=== PATIENT | male | born 1950 | race Hispanic/Latino ===

== ENCOUNTER 2016-12-08 06:24 | Day surgery (SDC) | payer MEDICARE ==
[2016-12-03 11:34] VITALS: BMI 23.8
--- NOTE | 2016-12-06 01:33 | HP ---
REASON FOR ADMISSION: Left heart cath, possible angioplasty, abnormal stress test. BRIEF CLINICAL HISTORY: A 66-year-old male with a history significant for 2-vessel CABG in 2008 and OSEI to LAD , SVG to RCA, who had recently PTCA done of SVG to RCA on 12/13/2015. Later on, patient presented with a chest pain in a week. A repeat cardiac catheterization done because of positive troponin, which is the tail end of non-STEMI, found to be patent PTCA site. 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 When compared from the date 11/16/2015, the scan findings are similar, so patient is scheduled for cardiac catheterization, possible angioplasty. PAST MEDICAL HISTORY: Significant for coronary artery disease status post CABG status post 1999 and status post SVG to PTCA and RCA on 06/09/2012 and then most recently, patient had coronary intervention on 12/13/2015 with a PTCA of saphenous graft to the RCA of the ostium and proximal to mid with CAITIE done. At that time, patient's OSEI to LAD was patent, but high grade II stenosis noted in the RCA at ostial and proximal to midportion of the graft. History of CABG. SOCIAL HISTORY: Active tobacco abuse, active alcohol abuse. Most recent cardiac workup as follows: Patient had a cardiac catheterization on 12/18/2015 one week after the coronary intervention with ejection fraction of 55 to 60%, [place] triple vessel disease, normal LV ejection fraction *------*, patent OSEI to LAD, patent saphenous graft to the RCA, patent all 3 stents. KAYLEN 3 brisk flow noted, whereas [place] vessels appeared that dominant right-sided, left main having 30 to 40% stenosis of the mid segment, LAD 100% occlusion in the mid, circumflex 100% stenosis in mid segment and ramus intermedius has diffuse disease, RCA 100% occlusion to the ostium with patent 3 stents in RCA, ostial, proximal and mid. Most recent stress test was abnormal. SOCIAL HISTORY: As mentioned, active tobacco abuse, active alcohol abuse. CURRENT MEDICATION: Patient is taking ramipril 1.25 mg daily, metoprolol tartarate 50 twice a day, Tricor 145 mg daily, Zetia 10 mg daily, clopidogrel 75 mg daily, atorvastatin 40 mg daily, aspirin 81 mg daily, Xanax 0.25 mg daily. ALLERGIES: NO KNOWN DRUG ALLERGIES. REVIEW OF SYSTEMS: As per HPI and negative except for HPI. PHYSICAL EXAMINATION: GENERAL: Height of the patient is 5 feet 6 inches, weight of the patient is 148 pounds. Body Mass Index is 23.9 kg/m2. VITAL SIGNS: Temperature afebrile, heart rate 80, blood pressure 130/80. HEENT: PERRLA, intact. NECK: Supple. No carotid bruit. No thyromegaly. CHEST: Clear to auscultation. HEART: S1 and S2 regular. ABDOMEN: Soft. EXTREMITIES: Clubbing and cyanosis negative. BLOOD WORKUP: Pending. IMPRESSION: A 66-year-old male with a past medical history significant for coronary artery disease, status post CABG 2 vessels, OSEI to LAD, saphenous graft to the RCA. Most recent cardiac catheterization on 12/18/2015 shows patent OSEI to LAD, patent saphenous graft to the RCA, and 3 stents were patent, [place] triple vessel disease, 100% LAD occluded with circumflex occluded, 100% RCA occluded, preserved LV function, hypertension, hyperlipidemia, active tobacco abuse, active alcohol abuse. RECOMMENDATION: Cardiac catheterization. Further recommendation after cardiac catheterization. We will follow with you. Annalisa Mcduffie MD
[2016-12-08 07:20] VITALS: RESP 20
[2016-12-08 07:24] LABS: BASO # 0.04 K/mm3 (0.0-2.0); BASO % 0.6 % (0.0-3.0); EOS # 0.3 (0.0-0.7); EOS % 4.1 % (1.5-5.0); GRAN # 4.48 (1.4-6.5); GRAN % 63.4 % (50.0-68.0); HEMOGLOBIN 14.6 gm/dL (14.0-18.0); LYMPH # 1.6 (1.2-3.4); LYMPH % 22.3 % (22.0-35.0); MEAN CELL VOLUME 88.3 fL (80.0-105.0); MEAN CORPUSCULAR HEMOGLOBIN 30.6 pg (25.0-35.0); MEAN CORPUSCULAR HGB CONC 34.7 g/dl (31.0-37.0); MEAN PLATELET VOLUME 9.9 fl (7.0-11.0); MONO # 0.7 (0.1-0.6); MONO % 9.6 % (1.0-6.0); PLATELET COUNT 156 10^3/uL (120.0-450.0); RBC 4.77 10^6/uL (3.5-6.1); WHITE BLOOD COUNT 7.1 10^3/ul (4.5-11.0)
[2016-12-08] MEDS ORDERED: Lidocaine 2% Inj (20ml) ONE (07:33)
[2016-12-08] MEDS ORDERED: Nitroglycerin 50mg in D5W 50 MG/250 ML BOTTLE IV ONE (07:34)
[2016-12-08 07:36] LABS: INR 0.98 (0.93-1.08); PARTIAL THROMBOPLASTIN TIME 30.5 Seconds (23.7-30.8); PROTHROMBIN TIME 10.6 Seconds (9.9-11.8)
[2016-12-08 07:41] LABS: BLOOD UREA NITROGEN 14 mg/dL (7-21); GFR AFRICAN-AMERICAN > 60; GFR NON-AFRICAN AMERICAN > 60; HDL CHOLESTEROL 44 mg/dL (29-60)
[2016-12-08 07:51] LABS: LDL CHOLESTEROL 72 mg/dL (0-129)
[2016-12-08] MEDS ORDERED: Midazolam 2 MG/2 ML VIAL ONE (07:53)
[2016-12-08] MEDS ORDERED: Bacitracin 500 Units/gm Oint Foilpak UD TOP ONE (08:48)
[2016-12-08] MEDS ORDERED: Sodium Chloride 0.9% 1,000 ML IV SCH (09:00)
[2016-12-08 09:09] VITALS: TEMP 97.6
[2016-12-08] MEDS ORDERED: Bacitracin 500 Units/gm Oint Foilpak UD ONE (10:57)
[2016-12-08 12:08] VITALS: BP 123/71; PULSE 58; O2SAT 98
--- NOTE | 2016-12-08 14:49 | CARD ---
APPROVED REPORT Procedure(s) performed: Left Heart Catheterization OSEI Angiogram Coronary Arteriogram HISTORY The patient is a 66 year-old male with a history of : previous OH (> 7 days), most recent EF: 51%. (EF Method: RADIONUCLIDE), previous diagnostic cath, tobacco history() : The patient is a current smoker , previous PCI (The PCI date was 12/13/2015), hypertension , previous CABG (The CABG date was 05/18/2008), dyslipidemia . INDICATION The indication(s) include : positive stress test. CASE TECHNIQUE The patient was brought electively to the Cardiac Catheterization Laboratory in a fasting state and was prepped and draped in a sterile manner. The left wrist was infiltrated with 2% Lidocaine subcutaneous anesthesia. A 6 Fr Glidesheath (Radial) sheath was inserted into the left radial artery without difficulty. Coronary angiography was performed using coronary diagnostic catheters. The left coronary system was accessed and visualized with a Diagnostic ,5 Fr JL 3.5 catheter. The right coronary system was accessed and visualized with a Diagnostic ,5 Fr JR 4 catheter. The left ventricle was accessed and visualized with a 5 Fr Pigtail 145 (Angled) catheter. The left internal mammary artery was accessed and visualized with a Diagnostic ,5 Fr JR 4 catheter. The saphenous vein graft was accessed and visualized with a Diagnostic ,5FR MP1 catheter. The saphenous vein graft was accessed and visualized with a Diagnostic catheter. Left ventricular/Aortic Valve gradient assessed on pullback. Left ventriculogram was performed in FISHER projection. Closure device was deployed with a Fr TR Band (Regular) without any complications. The patient tolerated the procedure well and there were no complications associated with the procedure. Vessel Analysis The patient's coronary anatomy is right dominant. The left main coronary artery is a large size vessel with diffuse calcification noted throughout this vessel and without significant stenosis. There is a 30-40% stenosis in the mid segment. The left main trifurcates to the left anterior descending, circumflex, and ramus. The left anterior descending artery is a medium size vessel with diffuse calcification noted throughout this vessel and with significant stenosis. There is a 100% stenosis in the mid segment. The first diagonal branch is a small size vessel with diffuse calcification noted throughout this vessel and without significant stenosis. There is a 95% stenosis in the proximal segment. The circumflex artery is a medium size vessel with diffuse calcification noted throughout this vessel and without significant stenosis. There is a 100% stenosis in the mid segment. The ramus intermedius artery is a medium size vessel with diffuse calcification noted throughout this vessel and without significant stenosis. The right coronary artery is a medium size vessel . There is a 100% stenosis in the ostial segment. Not canulated this time ,found to be occluded on previous cath (10/30/2014) The right posterior descending artery is a large size vessel with diffuse calcification noted throughout this vessel and without significant stenosis. The left internal mammary artery to the mid left anterior descending artery segment is patent . The right internal mammary artery to the is patent with patent all three stents, But 40-50% Instent Restenosis noted.. The saphenous vein graft to the right posterior atrioventricular segment . Left Ventricle The left ventricle is Borderline enlarged in size with mildly decreased contractility. Ischemic cardiomyopathy. The left ventricular ejection fraction is estimated to be 45-50%. The left ventricular end diastolic pressure is 14 mmHg. There was no gradient across the aortic valve upon pullback. Conclusion [place] Triple vessel Disease, Occluded LAD/CX in Mid and RCA at [place] Patent OSEI to LAD Patent SVG to Distal RCA with patent all three stents but 40-50% instent Restenosis. Mildly decreased LV FX. 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 CC; DRs. Fischer / Adrienne.
== END 2016-12-08 12:30 | disposition home or self-care (01) ==
LOC: CATH 06:24
PROVIDERS: ATTEND Internal Medicine Cardiovascular Disease
DX: I25.10 Atherosclerotic heart disease of native coronary artery without angina pectoris (principal); I25.5 Ischemic cardiomyopathy; I25.2 Old myocardial infarction; I10 Essential (primary) hypertension; E78.5 Hyperlipidemia, unspecified; F17.210 Nicotine dependence, cigarettes, uncomplicated; F10.10 Alcohol abuse, uncomplicated; Z95.1 Presence of aortocoronary bypass graft; Z95.5 Presence of coronary angioplasty implant and graft
CPT/HCPCS: 36415; 80048; 80061; 85025; 85610; 85730; 86850; 86900; 93459; 99152; C1769; C1887 ×2; J1644 ×2; J2250; J3010; J7040 ×2; Q9967

== ENCOUNTER 2017-02-24 09:55 | Observation (INO) | payer MEDICARE ==
--- NOTE | 2017-02-24 10:34 | ED PDOC ---
Arrival/HPI - General Chief Complaint: Upper Extremity Problem/Injury Time Seen by Provider: 02/24/17 10:14 Historian: Patient - History of Present Illness Narrative History of Present Illness (Text): 02/24/17 10:15 A 66 year old male smoker, whose past medical history includes ID, CAD, cardiac stents, high blood pressure, smoking, and high cholesterol, presents to the emergency department for arm discomfort on exertion, which began approximately 1 1/2 weeks ago. The patient reports when going up the stairs he feels a "squeezing sensation" down his arm, but when he stops so does the pain. He states these are similar symptoms as when he had a previous ID. The patient describes the pain as "tightness" and "burning." Denies pain radiating to the neck or back. Denies chest pain. He admits he is compliant with his medications and is trying to cut back and quit smoking. The patient denies fever, abdominal pain, headaches, denies leg pain or swelling. Time/Duration: 24 hours (1 1/2 weeks), > week Symptom Onset: Gradual Symptom Course: Unchanged Quality: Tightness, Burning Activities at Onset: Light Context: Walking, Home, Street Past Medical History - Provider Review Nursing Documentation Reviewed: Yes - Infectious Disease Hx of Infectious Diseases: None - Tetanus Immunization Tetanus Immunization: Unknown - Cardiac Hx ID: Yes - Pulmonary Hx Respiratory Disorders: No - Neurological Hx Paralysis: No - HEENT Hx HEENT Disorder: Yes (ringing in the ears) Hx Blind: No Hx Cataracts: No Hx Deafness: No Hx Difficulty Chewing: No Hx Epistaxis: No Hx Glaucoma: No Hx Macular Degeneration: No - Renal Hx Renal Disorder: No Hx Dialysis: No Hx Kidney Stones: No Hx Neurogenic Bladder: No Hx Pyelonephritis: No Hx Renal Cancer: No Hx Renal Failure: No - Endocrine/Metabolic Hx Endocrine Disorders: No Hx Adrenal Cancer: No Hx Diabetes Insipidus: No Hx Diabetes Mellitus Type 1: No Hx Diabetes Mellitus Type 2: No Hx Hyperthyroidism: No Hx Hypothyroidism: No Hx Systemic Lupus Erythematosus: No - Hematological/Oncological Hx Blood Transfusions: No Hx Blood Transfusion Reaction: No - Integumentary Hx Dermatological Disorder: No Hx Basal Cell Carcinoma: No Hx Eczema: No Hx Melanoma: No Hx Psoriasis: No Hx Squamous Cell Carcinoma: No - Musculoskeletal/Rheumatological Hx Musculoskeletal Disorders: No - Gastrointestinal Hx Gastrointestinal Disorders: No Hx Colostomy: No Hx Crohn's Disease: No Hx Diverticulitis: No Hx Gall Bladder Disease: No Hx Gastroesophageal Reflux: No Hx Gastrointestinal Ulcer: No Hx Ileostomy: No Hx Liver Failure: No Hx Pancreatitis: No HX Swallowing Problems: No - Genitourinary/Gynecological Hx Genitourinary Disorders: No Hx Hematuria: No Hx Incontinence: No Hx Prostate Problems: No Hx Sexually Transmitted Diseases: No Hx Urinary Tract Infection: No - Psychiatric Hx Emotional Abuse: No Hx Physical Abuse: No Hx Substance Use: No - Surgical History Hx Appendectomy: Yes Hx Coronary Artery Bypass Graft: Yes Hx Coronary Stent: Yes Hx Orthopedic Surgery: Yes (both knee) - Anesthesia Hx Anesthesia Reactions: No Hx Malignant Hyperthermia: No - Suicidal Assessment Feels Threatened In Home Enviroment: No Family/Social History - Physician Review Nursing Documentation Reviewed: Yes Family/Social History: Unknown Family HX Smoking Status: Heavy Smoker > 10 Cigarettes Daily Hx Alcohol Use: Yes Frequency of alcohol use: Socially Hx Substance Use: No Hx Substance Use Treatment: No Allergies/Home Meds Allergies/Adverse Reactions: Allergies No Known Allergies Allergy (Verified 02/24/17 10:02) Home Medications: Home Meds Medication Instructions Recorded Confirmed Aspirin [Ecotrin] 81 mg PO DAILY 12/11/15 02/24/17 Clopidogrel [Plavix] 75 mg PO DAILY 12/11/15 02/24/17 Metoprolol Tartrate 50 mg PO BID 12/11/15 02/24/17 Ramipril [Altace] 1.25 mg PO DAILY 12/11/15 02/24/17 Atorvastatin [Lipitor] 40 mg PO DAILY 07/19/16 02/24/17 Ezetimibe [Zetia] 10 mg PO DAILY 12/03/16 02/24/17 Review of Systems - Review of Systems Constitutional: Fatigue. absent: Fevers Eyes: absent: Vision Changes ENT: absent: Hearing Changes Respiratory: SOB. absent: Cough, Wheezing Cardiovascular: WALTERS. absent: Chest Pain, Edema Gastrointestinal: absent: Abdominal Pain Musculoskeletal: Other (arm discomfort with exertion ) Neurological: absent: Headache, Dizziness, Focal Weakness Endocrine: absent: Polyuria Hemo/Lymphatic: absent: Easy Bleeding Psychiatric: absent: Depression Physical Exam - Physical Exam Narrative Physical Exam (Text): 02/24/17 10:20 Head: Atraumatic. Normocephalic. Eyes: PERRL. EOMI. Conjunctivae are not pale. ENT: Mucous membranes are moist and intact. Oropharynx is clear and symmetric. Neck: Supple. Full ROM. No JVD. No lymphadenopathy. Cardiovascular: Bradycardic. Systolic murmur. Distal pulses symmetric. Pulmonary/Chest: No evidence of respiratory distress. Mild expiratory wheeze no rales or rhochi. Abdominal: Soft and non-distended. There is no tenderness. No rebound, guarding, or rigidity. No organomegaly. Good bowel sounds. Back: No CVA tenderness. Extremities: No edema. No cyanosis. No clubbing. Full range of motion in all extremities. No calf tenderness. Skin: Skin is warm and dry. No petechiae. No purpura. Neurological: Alert, awake, and oriented to person, place, time, and situation. Normal speech. Motor and sensory exam intact. Psychiatric: Good eye contact. Normal interaction, affect, and behavior. Vital Signs Reviewed: Yes Vital Signs Temp Pulse Resp BP Pulse Ox 02/24/17 13:46 52 L 18 134/87 98 02/24/17 12:22 49 L 16 124/67 97 02/24/17 09:57 97.7 F 54 L 18 145/90 98 02/24/17 09:56 97.7 F 54 L 18 145/90 98 Temperature: Afebrile Blood Pressure: Normal Pulse: Bradycardic Respiratory Rate: Normal Appearance: Positive for: Well-Appearing, Non-Toxic, Comfortable Pain Distress: None Mental Status: Positive for: Alert and Oriented X 3 Medical Decision Making ED Course and Treatment: 02/24/17 10:20 Impression: A 66 year old male with arm discomfort. Differential Diagnosis included but are not limited to: ID vs. CAD Plan: -- EKG -- Chest X-ray -- Labs -- Reassess and disposition Progress Notes: Patient with significant past cardiac hx including prior stents. I did review cardiac cath from earlier this year: 02/24/17 10:35 Reviewed Cardiac Catheterization from earlier this year: Conclusion: [place] Triple Vessel Disease, Occluded LAD/CX in Mid and RCA at [place]. Patient OSEI to LAD Patient SVG to Distal RCA with patent all three stents, but 40-50% instent restenosis. Mildly decreased LV FX. EF-45-50%, EDP-14. Patient admits he continues to smoke, although reportedly recently compliant with medication. He took his aspirin and beta emory prior to arrival. He is currently pain free at rest. Symptoms over one week. Initial troponin unremarkable. CXR with pulmonary vascular congestion. He is not in respiratory distress and continues to deny chest pain. Based on persistent noncompliance with smoking, hx of stents, and arm pain with exertion that currently does not appear musculoskeletal as not worse with movement or palpation, will admit to telemetry observation. 02/24/17 13:39 Patient's presents to the emergency department, the patient is now willing to be admitted to the hospital. Case was discussed with the patient's primary doctor, Dr. Burgess, who agrees and will accept this case. 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 Mcduffie, and patient admitted to Dr. Burgess's service, his PMD. - Lab Interpretations Lab Results: 02/24/17 10:30 02/24/17 10:30 Lab Results 02/24/17 11:52: NT-Pro-B Natriuret Pep 138 02/24/17 10:30: Sodium 142, Potassium 4.2, Chloride 105, Carbon Dioxide 28, Anion Gap 13, BUN 12, Creatinine 0.7 L, Est GFR ( Amer) > 60, Est GFR ( Non-Af Amer) > 60, Random Glucose 100, Calcium 9.5, Total Bilirubin 0.6, AST 40 , ALT 51, Alkaline Phosphatase 62, Lactate Dehydrogenase 370, Total Creatine Kinase 61, Troponin I < 0.01 D, Total Protein 6.7, Albumin 4.1, Globulin 2.7, Albumin/Globulin Ratio 1.5 02/24/17 10:30: PT 10.9, INR 1.01, APTT 30.3 02/24/17 10:30: WBC 7.6, RBC 4.83, Hgb 14.8, Hct 43.1, MCV 89.2, MCH 30.6, MCHC 34.3, RDW 13.8, Plt Count 168, MPV 10.4, Gran % 68.1 H, Lymph % (Auto) 21.4 L, [place] % (Auto) 8.6 H, Eos % (Auto) 1.5, Baso % (Auto) 0.4, Gran # 5.16, Lymph # 1.6, [place] # 0.7 H, Eos # 0.1, Baso # 0.03 - RAD Interpretation Radiology Orders: 02/24/17 10:22 CHEST PORTABLE [RAD] Stat - Scribe Statement The provider has reviewed the documentation as recorded by the Scribe Sarah Jimenez Provider Scribe Attestation: All medical record entries made by the Scribe were at my direction and personally dictated by me. I have reviewed the chart and agree that the record accurately reflects my personal performance of the history, physical exam, medical decision making, and the department course for this patient. I have also personally directed, reviewed, and agree with the discharge instructions and disposition. Disposition/Present on Arrival - Present on Arrival Any Indicators Present on Arrival: No History of DVT/PE: No History of Uncontrolled Diabetes: No Urinary Catheter: No History of Decub. Ulcer: No History Surgical Site Infection Following: None - Disposition Have Diagnosis and Disposition been Completed?: Yes Diagnosis: Chest pain Disposition: AGAINST MEDICAL ADVICE Disposition Time: 12:30 Patient Plan: Discharge Patient Problems: Current Active Problems Problem Status Onset Chest pain Acute Condition: GOOD
[2017-02-24 10:54] LABS: BASO # 0.03 K/mm3 (0.0-2.0); BASO % 0.4 % (0.0-3.0); EOS # 0.1 (0.0-0.7); EOS % 1.5 % (1.5-5.0); GRAN # 5.16 (1.4-6.5); GRAN % 68.1 % (50.0-68.0); HEMATOCRIT 43.1 % (42.0-52.0); LYMPH # 1.6 (1.2-3.4); LYMPH % 21.4 % (22.0-35.0); MEAN CELL VOLUME 89.2 fl (80.0-105.0); MEAN CORPUSCULAR HEMOGLOBIN 30.6 pg (25.0-35.0); MEAN CORPUSCULAR HGB CONC 34.3 g/dl (31.0-37.0); MEAN PLATELET VOLUME 10.4 fl (7.0-11.0); MONO # 0.7 (0.1-0.6); MONO % 8.6 % (1.0-6.0); RED CELL DISTRIBUTION WIDTH 13.8 % (11.5-14.5); WHITE BLOOD COUNT 7.6 10^3/ul (4.5-11.0)
[2017-02-24 11:02] LABS: INR 1.01 (0.93-1.08); PARTIAL THROMBOPLASTIN TIME 30.3 Seconds (23.7-30.8)
--- NOTE | 2017-02-24 11:05 | RAD ---
HISTORY: Chest pain COMPARISON: 12/17/2015. FINDINGS: LUNGS: The lungs are well inflated. There is mild pulmonary venous congestion. There is bibasilar atelectasis. PLEURA: No significant pleural effusion identified, no pneumothorax apparent. CARDIOVASCULAR: The heart is normal in size. Status post CABG. OSSEOUS STRUCTURES: No significant abnormalities. VISUALIZED UPPER ABDOMEN: Normal. OTHER FINDINGS: None. IMPRESSION: Persistent mild pulmonary venous congestion. No lobar pneumonia.
[2017-02-24 11:16] LABS: ALB/GLOB RATIO 1.5 (1.1-1.8); ALKALINE PHOSPHATASE 62 U/L (38-126); ALT/SGPT 51 U/L (7-56); AST/SGOT 40 U/L (17-59); BILIRUBIN,TOTAL 0.6 mg/dL (0.2-1.3); BLOOD UREA NITROGEN 12 mg/dL (7-21); CALCIUM 9.5 mg/dL (8.4-10.5); CARBON DIOXIDE 28 mmol/L (21-33); CHLORIDE 105 mmol/L (98-107); GFR AFRICAN-AMERICAN > 60; GLUCOSE,RANDOM 100 mg/dL (70-110); POTASSIUM 4.2 mmol/L (3.6-5.0); SODIUM 142 mmol/L (132-148); TOTAL PROTEIN 6.7 g/dL (5.8-8.3)
[2017-02-24 11:34] LABS: TROPONIN I < 0.01 ng/mL
[2017-02-24] MEDS ORDERED: Enoxaparin 60 mg Syringe SC ONE (17:05)
[2017-02-24 19:17] VITALS: BMI 26.5
[2017-02-24 19:35] LABS: TROPONIN I 0.01 ng/mL
--- NOTE | 2017-02-24 20:14 | HP ---
HISTORY OF PRESENT ILLNESS: The patient is a 66-year-old came to the emergency room because of left-sided pain and left shoulder pain. The patient states pain gets worse when he ambulates and exert. This has been going on for almost a week or so. The patient also states that when he goes up hill and climbs stairs, he feels pressure that radiates to his left arm. He gets relieved with rest. Denies any fever or chills. The patient states that he had a similar scene when he had heart attack. No history of fever, chills, cough, and congestion. No history of nausea or vomiting. No diarrhea. No abdominal pain. The patient does admit, he is active smoker and he claims he is compliant with his medication. PAST MEDICAL HISTORY: Significant for; 1. Coronary artery disease. 2. History of angioplasty. 3. Hypertension. 4. Active smoker. 5. Hyperlipidemia. 6. History of anxiety disorder. ALLERGIES: NOT ALLERGIC TO ANY MEDICATION. MEDICATION: He is on aspirin 81 mg daily, Altace 1.25 mg daily, metoprolol 50 mg twice a day, daily, Plavix 75 mg daily, and Lipitor 40 mg daily. PAST SURGICAL HISTORY: The patient had cardiac cath done in 12/2015 and he was found to have patent stents. He has normal LV function with ejection fraction of 50% to 60%. He has a patent OSEI to LAD, patent SVT to RCA with patent all three stents. SOCIAL HISTORY: He is active smoker and socially drinks. REVIEW OF SYSTEMS: Complains of chest pressure and burning radiating into the left arm upon exertion. PHYSICAL EXAMINATION GENERAL: He is awake, alert, and communicative. VITAL SIGNS: He is afebrile, pulse 54, respirations 18, temperature 113/69. LUNGS: Bilateral free airflow. No rhonchi or crackle. HEART: S1 and S2 audible. ABDOMEN: Soft and nontender. No rebound. No guarding. NEUROLOGIC: The patient is awake and alert, able to communicated. LABORATORY DATA: WBC 7.6, hemoglobin 14.8, hematocrit 43, platelet 168, PT 10.9, INR 1.01. Chemistry; sodium 142, potassium 4.2, chloride 105, CO2 28, BUN 12, creatinine 0.7, blood sugar of 100. His first troponin is less than 0.01, BMP is 138. X-ray chest is unremarkable. EKG is unremarkable. He does have mild pulmonary venous congestion, but no infiltrate. ASSESSMENT AND PLAN: 1. Chest pain rule out underlying ischemia. 2. Hyperlipidemia. 3. Hypertension. 4. Coronary artery disease status post angioplasty. 5. Active smoker. PLAN: I will continue patient on his regular medication that include Altace 1.25 mg daily, aspirin 81 mg daily, atorvastatin 40 mg daily, metoprolol 50 mg twice a day. He is on Plavix 75 mg daily. The patient was seen by Dr. Mcduffie. He is scheduled to have cardiac cath done tomorrow. We will follow up with serial , EKG, and cardiac enzyme. Cindy Burgess MD
--- NOTE | 2017-02-25 11:39 | CARD ---
APPROVED REPORT EKG Measurement Heart [id number] <Conclusion> Sinus bradycardia ST & T wave abnormality, consider lateral ischemia Abnormal ECG
[2017-02-25] MEDS ORDERED: Iohexol 350mgl/ml 50 ML ONE (15:00)
[2017-02-25] MEDS ORDERED: Iohexol 350 MG/100 ML VIAL ONE (15:00)
[2017-02-25] MEDS ORDERED: Lidocaine 2% Inj (20ml) ONE (15:00)
[2017-02-25] MEDS ORDERED: Nitroglycerin 50mg in D5W 50 MG/250 ML BOTTLE IV ONE (15:00)
[2017-02-25] MEDS ORDERED: Midazolam 2 MG/2 ML VIAL ONE (15:09)
[2017-02-25] MEDS ORDERED: Phenylephrine 10 mg/ml Inj ONE (15:26)
[2017-02-25] MEDS ORDERED: Eptifibatide 0.75 mg/ml 0 MG/0 ML BOTTLE IV ONE (15:45)
[2017-02-25] MEDS ORDERED: Morphine 2 mg/ml ISec ONE (16:15)
[2017-02-25] MEDS ORDERED: Sodium Chloride 0.9% 1,000 ML IV SCH (16:30)
[2017-02-25] MEDS ORDERED: Eptifibatide 20 mg/10mL Inj IVP ONE (17:00)
[2017-02-25] MEDS ORDERED: Morphine 2 mg/ml ISec IVP ONE (17:35)
--- NOTE | 2017-02-25 19:04 | CARD ---
APPROVED REPORT EKG Measurement Heart [id number] <Conclusion> Marked sinus bradycardia ST & T wave abnormality, consider lateral ischemia Abnormal ECG
[2017-02-25 19:34] LABS: BASO # 0.02 K/mm3 (0.0-2.0); BASO % 0.3 % (0.0-3.0); EOS # 0.1 (0.0-0.7); EOS % 1.3 % (1.5-5.0); GRAN # 5.44 (1.4-6.5); GRAN % 75.8 % (50.0-68.0); HEMATOCRIT 41.7 % (42.0-52.0); LYMPH # 1.3 (1.2-3.4); LYMPH % 17.4 % (22.0-35.0); MEAN CELL VOLUME 89.5 fl (80.0-105.0); MEAN CORPUSCULAR HEMOGLOBIN 30.3 pg (25.0-35.0); MEAN CORPUSCULAR HGB CONC 33.8 g/dl (31.0-37.0); MEAN PLATELET VOLUME 10.2 fl (7.0-11.0); MONO # 0.4 (0.1-0.6); MONO % 5.2 % (1.0-6.0); WHITE BLOOD COUNT 7.2 10^3/ul (4.5-11.0)
[2017-02-25 19:38] LABS: BLOOD UREA NITROGEN 12 mg/dL (7-21); CALCIUM 8.6 mg/dL (8.4-10.5); CARBON DIOXIDE 26 mmol/L (21-33); CHLORIDE 105 mmol/L (98-107); GFR AFRICAN-AMERICAN > 60; GLUCOSE,RANDOM 225 mg/dL (70-110); POTASSIUM 3.7 mmol/L (3.6-5.0); SODIUM 140 mmol/L (132-148)
--- NOTE | 2017-02-25 20:11 | PN ---
DATE: SUBJECTIVE: The patient is a 66-year-old, seen and examined, complained of having left intermittent arm numbness, history of a cardiac device. He still smokes and has been in pain since lately. So, the patient was taken to the catheterization laboratory this afternoon and he had angioplasty done for SVG. PHYSICAL EXAMINATION GENERAL: Today, he is awake and alert, communicative. VITAL SIGNS: He is afebrile, pulse 49, respirations 18, blood pressure 123/72. HEART: S1 and S2 audible. LUNGS: Bilateral fair airflow. No rhonchi or crackle. ABDOMEN: Soft, nontender. No rebound, no guarding. NEUROLOGIC: The patient is awake and alert, able to communicate. LABORATORY DATA: His troponins are negative. ASSESSMENT: 1. Chest pain, status post cardiac catheterization and had angioplasty done. 2. Active smoker. 3. Hypertension. 4. Hyperlipidemia. 5. History of coronary artery disease. PLAN: We will continue the patient on ramipril, aspirin 81 daily. Continue on statins. I will cut down his metoprolol to 50 mg daily because he seemed to be bradycardic; so, I will decrease metoprolol to 25 twice a day. I will discuss with the patient to quit smoking and I will start him on some medication for anxiety. If the patient remains stable, he will be discharged. Cindy Burgess MD
[2017-02-25] MEDS ORDERED: Bacitracin 500 Units/gm Oint Foilpak UD ONE (21:02)
[2017-02-26 06:07] VITALS: RESP 16; TEMP 98; O2SAT 95
[2017-02-26 07:13] LABS: BASO # 0.03 K/mm3 (0.0-2.0); BASO % 0.3 % (0.0-3.0); EOS # 0.2 (0.0-0.7); EOS % 1.8 % (1.5-5.0); GRAN # 6.84 (1.4-6.5); GRAN % 75.1 % (50.0-68.0); HEMATOCRIT 40.9 % (42.0-52.0); LYMPH # 1.4 (1.2-3.4); LYMPH % 15.1 % (22.0-35.0); MEAN CELL VOLUME 89.9 fl (80.0-105.0); MEAN CORPUSCULAR HEMOGLOBIN 29.7 pg (25.0-35.0); MEAN PLATELET VOLUME 10.5 fl (7.0-11.0); MONO # 0.7 (0.1-0.6); MONO % 7.7 % (1.0-6.0); RED CELL DISTRIBUTION WIDTH 14.2 % (11.5-14.5); WHITE BLOOD COUNT 9.1 10^3/ul (4.5-11.0)
[2017-02-26 07:37] LABS: ALB/GLOB RATIO 1.5 (1.1-1.8); ALKALINE PHOSPHATASE 56 U/L (38-126); ALT/SGPT 44 U/L (7-56); AST/SGOT 76 U/L (17-59); BILIRUBIN,TOTAL 0.4 mg/dL (0.2-1.3); BLOOD UREA NITROGEN 12 mg/dL (7-21); CALCIUM 8.5 mg/dL (8.4-10.5); CARBON DIOXIDE 28 mmol/L (21-33); CHLORIDE 108 mmol/L (98-107); GFR AFRICAN-AMERICAN > 60; GLUCOSE,RANDOM 91 mg/dL (70-110); MAGNESIUM 1.7 mg/dL (1.7-2.2); PHOSPHOROUS 3.2 mg/dL (2.5-4.5); SODIUM 142 mmol/L (132-148); TOTAL PROTEIN 5.7 g/dL (5.8-8.3)
[2017-02-26 07:38] LABS: POTASSIUM 4.1 mmol/L (3.6-5.0)
--- NOTE | 2017-02-26 08:07 | CON ---
DATE: 02/25/2017 REASON FOR CONSULTATION: Follow up chest pain, unstable angina, coronary artery disease, active tobacco abuse. BRIEF CLINICAL HISTORY: This is a 66-year-old male with a past medical history significant for coronary artery disease, status post stent, status post myocardial infarction, active tobacco abuse, came into the ER with 1-week history of progressively worsening chest pain with squeezing sensation in both arms, that is how the patient presented initially when he had WA. He gets better every day in the morning when he walks, that later on gets better by the end of the day, so yesterday, it got worse so came to the emergency room. According to the patient and the ER physician, the patient had similar pain as when the patient had WA, but this time with a less intensity than when the patient had WA. PAST MEDICAL HISTORY: Significant for coronary artery disease, status post CABG in 1999, status post PTCA of SVG to RCA in 2012, the most recent, then the patient required intervention on 12/13/2015 with PTCA of RCA ostium and proximal to mid with CAITIE. At that time, the OSEI was found to be patent, but high-grade stenosis noted in RCA. SOCIAL HISTORY: Active tobacco abuse and alcohol abuse. MOST RECENT CARDIAC WORKUP FOLLOWS: The patient had most recently cardiac catheterization on 12/08/2016, was done with left radial approach because of the patient's abnormal stress test, that revealed occluded LAD, occluded circumflex in the mid, occluded RCA on the ostium, patent OSEI to LAD, patent saphenous graft, distal RCA, 3 stents in RCA, but 40% to 50% in-stent stenosis noted, mildly decreased LV function, ejection fraction 45% to 50% and medical treatment recommended. Prior to that, the patient had a stress test on 10/08/2013 that was abnormal, so the patient underwent cardiac catheterization. PHYSICAL EXAMINATION: VITAL SIGNS: Temperature afebrile, heart rate 90 and blood pressure 119/60. HEENT: PERRLA, intact. NECK: Supple. No carotid bruits or thyromegaly. CHEST: Clear to auscultation. HEART: S1 and S2 regular. ABDOMEN: Soft. EXTREMITIES: Clubbing and cyanosis negative. LABORATORY DATA: Blood workup showed WBC 7.6, hemoglobin 14, hematocrit 43.1 and platelet count 168. Chemistry showed sodium 140, potassium 4.2, chloride 105, carbon dioxide 28, anion gap of 13, BUN 12, creatinine 0.7. IMPRESSION: Acute coronary syndrome, unstable angina, diabetes, hypertension, hyperlipidemia, active tobacco abuse, history of coronary artery disease, coronary artery bypass grafting in 1999, history of multiple percutaneous transluminal coronary angioplasty of saphenous vein graft to right coronary artery, last coronary intervention on 12/13/2015, last catheterization on 12/02/2016, patent saphenous vein graft to right coronary artery. RECOMMENDATIONS: One dose was given of Lovenox. Continue aspirin and Plavix. Cardiac catheterization at 3:00 p.m. Discussed with the family, discussed with the patient, discussed with Clare and he will proceed for cardiac catheterization. Further recommendations after cardiac catheterization. Thank you Dr. Deleon for providing us opportunity in taking care of the patient. Annalisa Mcduffie MD
--- NOTE | 2017-02-26 08:47 | CARDCATH ---
CARDIAC CATH LABORATORY/ANGIOPLASTY PROCEDURE DATE: 02/25/2017 PROCEDURES PERFORMED: 1. Complete left heart catheterization. 2. OSEI injection. 3. Saphenous graft injection. 4. PRU testing, found to be 110 seconds. 5. PTCA of SVG to RCA. REFERRING PHYSICIANS: Dr. Cindy Burgess, Dr. Annalisa Deleon. OPERATING PHYSICIAN: Dr. Annalisa Mcduffie. [employer] ASSEMBLER: Geraldine Strickland, multi craft maintenance technician scheduling semi-elective. BRIEF CLINICAL HISTORY: This is a 66-year-old male with a past medical history significant for open heart surgery, status post cardiac catheterization in 1999, status post multiple PTCAs, admitted yesterday with unstable angina and acute coronary syndrome. Therefore, the patient is scheduled for elective cardiac cath, possible angioplasty. DESCRIPTION OF PROCEDURE: The patient was brought to laboratory sample carrier, prepped and draped in standard sterile fashion. Left radial artery was punctured for the radial access and then Glidesheath was placed, and then cocktail comprising of 2500 of heparin, 200 of nitroglycerin and 2.5 of verapamil were injected through the sheath. Left and right Haydee catheter and pigtail catheter used for coronary angiography as well as multipurpose catheter used for saphenous venous graft. FINDINGS: As follows: The patient's artery is right-side dominant. Left main artery is a large caliber vessel. Distal left main has a 30% stenosis. Trifurcate LAD circumflex and ramus intermedius. LAD is proximally occluded. Circumflex is proximally occluded. Ramus intermedius is a moderate caliber vessel, essentially free of significant disease. showed luminal irregularity, but no flow obstructive stenosis noted. Right coronary artery is a medium-caliber dominant artery, 100% occluded proximally. LV gram was done that showed ejection fraction of 45% to 50% and apical hypokinesis noted. End diastolic pressure is 14 mmHg. Graft as follows: 1. OSEI is patent to LAD. 2. Saphenous venous graft to the RCA is patent, proximal two patent stents noted. Distal to the stent, 90% stenosis noted with KAYLEN-II flow noted. In view of above, PTCA of SVG to RCA was contemplated. 500 more heparin given. Total of 3000 heparin was given. Integrilin 2 bolus was given and before giving Integrilin, a blood sample was drawn for PRU and tested. PRU found to be 110 seconds, which indicates that the patient's Plavix is effective and totally aggregation of platelet is normal. Then, multipurpose guider catheter was taken and engaged the SVG to RCA and then with a loose wire and primary dilatation with Montrose 3.0 x 15 mm balloon at 10 atmospheres. After this, Montrose balloon was taken out, and drug-coated stent, Resolute, 4 mm in diameter and 26 mm in length was taken and deployed at 14 atmospheres. After this, stent system was taken out and 125 of intracoronary verapamil was given twice. After the final picture was taken, KAYLEN-III brisk flow was noted and no reflow phenomenon noted. In summary, following procedure was done; 1. Complete left heart catheterization. 2. OSEI injection. 3. Saphenous venous graft injection. 4. PRU testing. 5. PTCA of SVG to RCA with a drug-eluting stent towards the left radial access. The patient tolerated the procedure well and returned to the floor in stable condition. RECOMMENDATIONS: Continue aspirin and Plavix mandatory for 1 year, preferably for extended period of time. Since the patient is not resistant to Plavix, we will continue Plavix and aspirin. Annalisa Mcduffie MD cc: MD Annalisa Yee MD
[2017-02-26 09:09] VITALS: BP 121/70
[2017-02-26 11:35] VITALS: PULSE 65
--- NOTE | 2017-02-26 17:33 | PN ---
DATE OF SERVICE: 02/26/2017 REASON FOR CONSULTATION: Followup of unstable angina, coronary artery disease, active tobacco abuse, and status post PTCA of SVG to RCA. SUBJECTIVE: The patient feels a lot better. No chest pain. No pain in the arm. No shortness of breath. OBJECTIVE: GENERAL: Lying flat on the bed, not in apparent distress. VITAL SIGNS: Temperature is afebrile, heart rate 65, blood pressure 121/70. HEENT: PERRLA, intact. NECK: Supple. No carotid bruits or thyromegaly. CHEST: Clear to auscultation. HEART: S1 and S2 regular. ABDOMEN: Soft. EXTREMITIES: Clubbing and cyanosis negative. LABORATORY DATA: Blood workup as follows: WBC 9.9, hemoglobin 13.9, hematocrit 40.9, platelet 149. Chemistry shows sodium 140, potassium 4.2, chloride 108, carbon dioxide 28, anion gap of 10, BUN 12, creatinine 0.7, total protein 5.7, albumin 3.5, albumin-globulin ratio 1.5, triglycerides 285, cholesterol 135, LDL 70, HDL 40. IMPRESSION: Acute coronary syndrome, unstable angina, history of coronary artery disease, coronary artery bypass grafting in the past in 1999, status post multiple percutaneous transluminal coronary angioplasty of saphenous vein graft to right coronary artery, admitted with acute coronary syndrome, status post cardiac catheterization, and a drug-eluting stent was placed in saphenous vein graft to right coronary artery. PRU that is a platelet aggregation inhibitor, P2Y12 was checked, found to be 110 (normal functioning platelet aggregation with Plavix). RECOMMENDATIONS: Continue aspirin and Plavix. Continue metoprolol. Continue atorvastatin. Continue ramipril 1.25 mg daily. Discontinue telemetry. Possible discharge home today. Complete cessation of smoking, emphasis made to the patient, emphasis made to the that if the patient continues to have, he can re-occlude his stent in SVG and can be very disaster, can lead to inferior wall TX and can lead to sudden cardiac . Dressing was changed from the left radial and put a Band-Aid, and distal 2+ pulse noted. Thank you Dr. Burgess for providing the opportunity in taking care of Jovan Lomeli. Annalisa Mcduffie MD cc: Cindy Burgess MD
--- NOTE | 2017-02-27 08:39 | DS ---
HISTORY OF PRESENT ILLNESS: The patient is a 66-year-old white male who was admitted with left-sided numbness and pain. He has big time history of coronary artery disease, has history of previous angioplasty. He is active smoker, almost 2-pack a day. The patient underwent cardiac cath and had angioplasty of SVG done. He is ambulating. No nausea or vomiting. No diarrhea. PHYSICAL EXAMINATION: VITAL SIGNS: He is afebrile, pulse 65, respirations 16, blood pressure 121/70. LUNGS: Bilateral fair air flow. No rhonchi or crackle. HEART: S1 and S2 audible. ABDOMEN: Soft, nontender. No rebound. No guarding. NEUROLOGIC: He is awake and alert, able to communicate. LABORATORY DATA: WBC is 9.1, hemoglobin 13.5, hematocrit 40.9, platelets of 149. Chemistry; sodium 142, potassium 4.1, chloride 108, CO2 of 28, BUN 12, creatinine 0.7, blood sugar 191. LFTs are within normal limits. ASSESSMENT: 1. Status post catheterization and had angioplasty of saphenous vein graft done. 2. Active smoker. 3. Hypertension. 4. Hyperlipidemia. 5. Anxiety disorder. PLAN: I discussed with the patient at length. He is willing to quit. He is advised to make a alf plan, cut down on smoking. I will give him Zyban 75 daily for a week and then twice a day and then I will follow him up in the office. In the meantime, he will continue his medication including Lipitor 40 mg daily, Plavix 75 daily, ramipril 1.25 daily, aspirin 81 daily, Zetia 10 mg daily, metoprolol 50 mg twice a day and we will followup the patient . Cindy Burgess MD
== END 2017-02-26 13:28 | disposition home or self-care (01) ==
LOC: ED 09:55 → ERH 13:40 → 2RNO 16:55 → 2RSO 02-25 08:58
PROVIDERS: ADMIT Internal Medicine; ATTEND Internal Medicine
DX: I25.110 Atherosclerotic heart disease of native coronary artery with unstable angina pectoris (principal); I10 Essential (primary) hypertension; E78.00 Pure hypercholesterolemia, unspecified; F17.200 Nicotine dependence, unspecified, uncomplicated; I25.2 Old myocardial infarction; Z95.5 Presence of coronary angioplasty implant and graft; Z90.49 Acquired absence of other specified parts of digestive tract; Z95.1 Presence of aortocoronary bypass graft; E78.5 Hyperlipidemia, unspecified; F41.9 Anxiety disorder, unspecified; R94.39 Abnormal result of other cardiovascular function study; E11.9 Type 2 diabetes mellitus without complications; Z79.899 Other long term (current) drug therapy; Z79.82 Long term (current) use of aspirin; Z79.02 Long term (current) use of antithrombotics/antiplatelets; I25.82 Chronic total occlusion of coronary artery
CPT/HCPCS: 36415; 71010; 80048; 80053; 80061; 82550; 83615; 83735; 83880; 84100; 84484; 85025; 85175; 85576; 85610; 85730; 93005; 93459; 96372; 96374; 99152; 99153; 99285; C1725; C1769; C1874; C1887; C9604; G0378; J1327; J1644; J1650; J2250; J2270; J3010; J7040; Q9967

== ENCOUNTER 2017-07-02 20:05 | Emergency (ER) | payer BC, MEDICARE ==
--- NOTE | 2017-07-02 20:45 | ED PDOC ---
Arrival/HPI - General Time Seen by Provider: 07/02/17 20:40 Historian: Patient - History of Present Illness Narrative History of Present Illness (Text): 07/02/17 20:44 A 66 year old male presents to the emergency department complaining of difficulty urinating since this morning. Patient has a urinary catheter placed and is on flomax. Patient denies any fever, chills, nausea, vomiting, abdominal pain, dysuria, hematuria, back pain, chest pain, shortness of breath or any other complaints. Time/Duration: Other (this morning) Symptom Course: Unchanged Context: Home Past Medical History - Provider Review Nursing Documentation Reviewed: Yes - Infectious Disease Hx of Infectious Diseases: None - Tetanus Immunization Tetanus Immunization: Unknown - Cardiac Hx Cardiac Disorders: Yes (CABG) Hx Hypertension: Yes - Pulmonary Hx Respiratory Disorders: Yes (SMOKES 1.5 PPD NOW. USED TO SMOKE 3 PPD) - Neurological Hx Neurological Disorder: No Hx Alzheimer's Disease: No HX Cerebrovascular Accident: No Hx Dementia: No Hx Dizziness: No Hx Meningitis: No Hx Migraine: No Hx Parkinson's Disease: No Hx Seizures: No Hx Transient Ischemic Attacks (TIA): No - HEENT Hx HEENT Disorder: Yes (ringing in the ears) Hx Blind: No Hx Cataracts: No Hx Deafness: No Hx Difficulty Chewing: No Hx Epistaxis: No Hx Glaucoma: No Hx Macular Degeneration: No - Renal Hx Renal Disorder: No Hx Dialysis: No Hx Kidney Stones: No Hx Neurogenic Bladder: No Hx Pyelonephritis: No Hx Renal Cancer: No Hx Renal Failure: No - Endocrine/Metabolic Hx Endocrine Disorders: No Hx Adrenal Cancer: No Hx Diabetes Insipidus: No Hx Diabetes Mellitus Type 1: No Hx Diabetes Mellitus Type 2: No Hx Hyperthyroidism: No Hx Hypothyroidism: No Hx Systemic Lupus Erythematosus: No - Hematological/Oncological Hx Blood Disorders: No Hx AIDS: No Hx Anemia: No Hx Cancer: No Hx Chemotherapy: No Hx Cirrhosis: No Hx Hepatitis A: No Hx Hepatitis B: No Hx Hepatitis C: No Hx Metastasis: No Hx Shingles: No Hx Unexplained Bleeding: No - Integumentary Hx Dermatological Disorder: No Hx Basal Cell Carcinoma: No Hx Eczema: No Hx Melanoma: No Hx Psoriasis: No Hx Squamous Cell Carcinoma: No - Musculoskeletal/Rheumatological Hx Musculoskeletal Disorders: Yes (BILATERAL KNEE SX) Hx Falls: No - Gastrointestinal Hx Gastrointestinal Disorders: Yes (APPENDECTOMY) Hx Colostomy: No Hx Crohn's Disease: No Hx Diverticulitis: No Hx Gall Bladder Disease: No Hx Gastroesophageal Reflux: No Hx Gastrointestinal Ulcer: No Hx Ileostomy: No Hx Liver Failure: No Hx Pancreatitis: No HX Swallowing Problems: No - Genitourinary/Gynecological Hx Genitourinary Disorders: Yes (URINARY RETENTION H/O) Hx Hematuria: No Hx Incontinence: No Hx Prostate Problems: Yes Hx Sexually Transmitted Diseases: No Hx Urinary Tract Infection: No - Psychiatric Hx Psychophysiologic Disorder: No Hx Emotional Abuse: No Hx Physical Abuse: No Hx Substance Use: No - Surgical History Hx Appendectomy: Yes Hx Cardiac Catheterization: Yes Hx Coronary Stent: Yes (X4) Hx Orthopedic Surgery: Yes (both knee) - Anesthesia Hx Anesthesia Reactions: No - Suicidal Assessment Feels Threatened In Home Enviroment: No Family/Social History - Physician Review Nursing Documentation Reviewed: Yes Family/Social History: No Known Family HX Smoking Status: Heavy Smoker > 10 Cigarettes Daily Hx Alcohol Use: Yes (WINE DAILY WITH MEALS H/O) Hx Substance Use: No Hx Substance Use Treatment: No Allergies/Home Meds Allergies/Adverse Reactions: Allergies No Known Allergies Allergy (Verified 02/24/17 17:17) Home Medications: Home Meds Medication Instructions Recorded Confirmed Aspirin [Ecotrin] 81 mg PO DAILY 12/11/15 02/24/17 Clopidogrel [Plavix] 75 mg PO DAILY 12/11/15 02/24/17 Metoprolol Tartrate 50 mg PO BID 12/11/15 02/26/17 Ramipril [Altace] 1.25 mg PO DAILY 12/11/15 02/24/17 Atorvastatin [Lipitor] 40 mg PO DAILY 07/19/16 02/24/17 Ezetimibe [Zetia] 10 mg PO DAILY 12/03/16 02/26/17 Bupropion HCl [Zyban] 75 mg PO DAILY 02/26/17 02/26/17 Review of Systems - Physician Review All systems were reviewed & negative as marked: Yes - Review of Systems Constitutional: absent: Fevers, Night Sweats Respiratory: absent: SOB Cardiovascular: absent: Chest Pain Gastrointestinal: absent: Abdominal Pain, Nausea, Vomiting Genitourinary Male: Other (difficulty urinating). absent: Dysuria, Hematuria Musculoskeletal: absent: Back Pain Physical Exam Vital Signs Temp Pulse Resp BP Pulse Ox 07/02/17 20:05 97.3 F L 70 16 126/78 95 Appearance: Positive for: Well-Appearing, Non-Toxic, Comfortable Pain Distress: None Mental Status: Positive for: Alert and Oriented X 3 - Systems Exam Head: Present: Atraumatic, Normocephalic Pupils: Present: PERRL Extroacular Muscles: Present: EOMI Conjunctiva: Present: Normal Mouth: Present: Moist Mucous Membranes Neck: Present: Normal Range of Motion Respiratory/Chest: Present: Clear to Auscultation, Good Air Exchange. No: Respiratory Distress, Accessory Muscle Use Cardiovascular: Present: Regular Rate and Rhythm, Normal S1, S2. No: Murmurs Abdomen: Present: Distention (bladder distended), Normal Bowel Sounds. No: Tenderness, Peritoneal Signs Back: Present: Normal Inspection Upper Extremity: Present: Normal Inspection. No: Cyanosis, Edema Lower Extremity: Present: Normal Inspection. No: Edema Neurological: Present: GCS=15, CN II-XII Intact, Speech Normal Skin: Present: Warm, Dry, Normal Color. No: Rashes Psychiatric: Present: Alert, Oriented x 3, Normal Insight, Normal Concentration Medical Decision Making ED Course and Treatment: 07/02/17 20:43 Impression: A 66 year old male with difficulty urinating Plan: -- Urine culture -- Urinalysis -- Reassess and disposition Progress Notes: - Lab Interpretations Lab Results: Lab Results 07/02/17 21:07: Urine Color Light yellow, Urine Appearance Clear, Urine pH 6.0, Ur Specific [place] 1.010, Urine Protein Negative, Urine Glucose (UA) Negative, Urine Ketones Negative, Urine Blood Trace-lysed H, Urine Nitrate Negative, Urine Bilirubin Negative, Urine Urobilinogen 0.2, Ur Leukocyte Esterase Negative , Urine RBC Pending, Urine WBC Pending Disposition/Present on Arrival - Present on Arrival Any Indicators Present on Arrival: No History of DVT/PE: No History of Uncontrolled Diabetes: No Urinary Catheter: No History of Decub. Ulcer: No History Surgical Site Infection Following: None - Disposition Have Diagnosis and Disposition been Completed?: Yes Diagnosis: Acute urinary retention Disposition: HOME/ ROUTINE Disposition Time: 21:19 Patient Plan: Discharge Condition: GOOD Discharge Instructions (ExitCare): Urinary Retention, Urinary Tract Infections in Adults Additional Instructions: Mr Lomeli - You probably will need to have the guzman in for two or three days. Follow up with Dr. REBOLLEDO [urology]. Take the Bactrim DS twice daily and the flomax is once a day. Return to us if any problems. Best- Dr. Pancho Hunter Referrals: Cindy Burgess MD [Primary Care Provider] - Follow up with primary Agustin Rebolledo MD [Staff Provider] - Follow up with primary
[2017-07-02 20:48] VITALS: BMI 25.4
[2017-07-02 21:15] VITALS: RESP 16
[2017-07-02 21:18] LABS: URINE APPEARANCE CLEAR (CLEAR); URINE BILIRUBIN NEGATIVE (NEGATIVE); URINE BLOOD TRACE-LYSED (NEGATIVE); URINE COLOR LIGHT YELLOW (YELLOW); URINE GLUCOSE (UA) NEGATIVE (NEGATIVE); URINE LEUKOCYTE ESTERASE NEGATIVE Leu/uL (NEGATIVE); URINE NITRATE NEGATIVE (NEGATIVE); URINE PROTEIN NEGATIVE mg/dL (<30 mg/dL); URINE UROBILINOGEN 0.2 E.U./dL (<1 E.U./dL)
[2017-07-02 21:28] LABS: URINE EPITHELIAL CELLS 0 - 2 /hpf (0-5); URINE RBC 0 - 2 /hpf (0-2); URINE WBC NEGATIVE /hpf (0-6)
[2017-07-02 21:29] LABS: URINE BACTERIA NEG (NEG)
[2017-07-02 22:16] VITALS: BP 120/71; PULSE 74; TEMP 98.6; O2SAT 100
== END 2017-07-02 22:20 | disposition home or self-care (01) ==
LOC: ED 20:05
DX: R33.9 Retention of urine, unspecified (principal)

== ENCOUNTER 2017-07-07 23:43 | Emergency (ER) | payer MEDICARE ==
[2017-07-07 23:43] VITALS: BMI 25.4
[2017-07-08 00:33] VITALS: TEMP 97.9
[2017-07-08 01:59] VITALS: BP 105/60; PULSE 93; RESP 20; O2SAT 95
--- NOTE | 2017-07-08 02:25 | ED PDOC ---
Arrival/HPI - General Historian: Patient - History of Present Illness Time/Duration: Other (see hpi) Context: Home <Josemanuel Burkett - Last Filed: 07/08/17 02:22> <Vernon Vila - Last Filed: 07/08/17 03:41> - General Chief Complaint: Male Genitourinary Time Seen by Provider: 07/08/17 02:00 - History of Present Illness Narrative History of Present Illness (Text): 07/08/17 02:00 This 66 yo male presents to this ED c/o urinary retention x 1 day. Patient state he saw Dr. Rebolledo yesterday, who removed his Woods catheter. Patient denies other complains. (Josemanuel Burkett) Past Medical History - Provider Review Nursing Documentation Reviewed: Yes - Infectious Disease Hx of Infectious Diseases: None - Tetanus Immunization Tetanus Immunization: Unknown - Cardiac Hx Cardiac Disorders: Yes (CABG) Hx Hypertension: Yes - Pulmonary Hx Respiratory Disorders: Yes (SMOKES 1.5 PPD NOW. USED TO SMOKE 3 PPD) - Neurological Hx Neurological Disorder: No Hx Alzheimer's Disease: No HX Cerebrovascular Accident: No Hx Dementia: No Hx Dizziness: No Hx Meningitis: No Hx Migraine: No Hx Parkinson's Disease: No Hx Seizures: No Hx Transient Ischemic Attacks (TIA): No - HEENT Hx HEENT Disorder: Yes (ringing in the ears) Hx Blind: No Hx Cataracts: No Hx Deafness: No Hx Difficulty Chewing: No Hx Epistaxis: No Hx Glaucoma: No Hx Macular Degeneration: No - Renal Hx Renal Disorder: No Hx Dialysis: No Hx Kidney Stones: No Hx Neurogenic Bladder: No Hx Pyelonephritis: No Hx Renal Cancer: No Hx Renal Failure: No - Endocrine/Metabolic Hx Endocrine Disorders: No Hx Adrenal Cancer: No Hx Diabetes Insipidus: No Hx Diabetes Mellitus Type 1: No Hx Diabetes Mellitus Type 2: No Hx Hyperthyroidism: No Hx Hypothyroidism: No Hx Systemic Lupus Erythematosus: No - Hematological/Oncological Hx Blood Disorders: No Hx AIDS: No Hx Anemia: No Hx Cancer: No Hx Chemotherapy: No Hx Cirrhosis: No Hx Hepatitis A: No Hx Hepatitis B: No Hx Hepatitis C: No Hx Metastasis: No Hx Shingles: No Hx Unexplained Bleeding: No - Integumentary Hx Dermatological Disorder: No Hx Basal Cell Carcinoma: No Hx Eczema: No Hx Melanoma: No Hx Psoriasis: No Hx Squamous Cell Carcinoma: No - Musculoskeletal/Rheumatological Hx Musculoskeletal Disorders: Yes (BILATERAL KNEE SX) Hx Falls: No - Gastrointestinal Hx Gastrointestinal Disorders: Yes (APPENDECTOMY) Hx Colostomy: No Hx Crohn's Disease: No Hx Diverticulitis: No Hx Gall Bladder Disease: No Hx Gastroesophageal Reflux: No Hx Gastrointestinal Ulcer: No Hx Ileostomy: No Hx Liver Failure: No Hx Pancreatitis: No HX Swallowing Problems: No - Genitourinary/Gynecological Hx Genitourinary Disorders: Yes (URINARY RETENTION H/O) Hx Hematuria: No Hx Incontinence: No Hx Prostate Problems: Yes Hx Sexually Transmitted Diseases: No Hx Urinary Tract Infection: No - Psychiatric Hx Psychophysiologic Disorder: No Hx Emotional Abuse: No Hx Physical Abuse: No Hx Substance Use: No - Surgical History Hx Appendectomy: Yes Hx Cardiac Catheterization: Yes (cabg x1) Hx Coronary Stent: Yes (X4) Hx Orthopedic Surgery: Yes (both knee) - Anesthesia Hx Anesthesia Reactions: No - Suicidal Assessment Feels Threatened In Home Enviroment: No <Josemanuel Burkett - Last Filed: 07/08/17 02:22> Family/Social History - Physician Review Nursing Documentation Reviewed: Yes Family/Social History: Other (noncontributory) Smoking Status: Heavy Smoker > 10 Cigarettes Daily Hx Alcohol Use: Yes (WINE DAILY WITH MEALS H/O) Hx Substance Use: No Hx Substance Use Treatment: No <Josemanuel Burkett - Last Filed: 07/08/17 02:22> Allergies/Home Meds <Josemanuel Burkett - Last Filed: 07/08/17 02:22> <Vernon Vila - Last Filed: 07/08/17 03:41> Allergies/Adverse Reactions: Allergies No Known Allergies Allergy (Verified 07/08/17 00:27) Home Medications: Home Meds Medication Instructions Recorded Confirmed Aspirin [Ecotrin] 81 mg PO DAILY 12/11/15 07/08/17 Clopidogrel [Plavix] 75 mg PO DAILY 12/11/15 07/08/17 Metoprolol Tartrate 50 mg PO BID 12/11/15 07/08/17 Ramipril [Altace] 1.25 mg PO DAILY 12/11/15 07/08/17 Atorvastatin [Lipitor] 40 mg PO DAILY 07/19/16 07/08/17 Ezetimibe [Zetia] 10 mg PO DAILY 12/03/16 07/08/17 Bupropion HCl [Zyban] 75 mg PO DAILY 02/26/17 07/08/17 Review of Systems - Review of Systems Constitutional: Normal. absent: Fatigue, Weight Change, Fevers Eyes: Normal ENT: Normal Respiratory: Normal Cardiovascular: Normal Gastrointestinal: Normal Genitourinary Male: Other (urinary retention) Musculoskeletal: Normal Skin: Normal Neurological: Normal Endocrine: Normal Hemo/Lymphatic: Normal Psychiatric: Normal <Josemanuel Burkett P - Last Filed: 07/08/17 02:22> Physical Exam Temperature: Afebrile Blood Pressure: Normal Pulse: Regular Respiratory Rate: Normal Appearance: Positive for: Well-Appearing, Non-Toxic, Comfortable Pain Distress: None Mental Status: Positive for: Alert and Oriented X 3 - Systems Exam Head: Present: Atraumatic, Normocephalic Pupils: Present: PERRL Extroacular Muscles: Present: EOMI Conjunctiva: Present: Normal Mouth: Present: Moist Mucous Membranes Neck: Present: Normal Range of Motion Respiratory/Chest: Present: Clear to Auscultation, Good Air Exchange. No: Respiratory Distress, Accessory Muscle Use Cardiovascular: Present: Regular Rate and Rhythm, Normal S1, S2. No: Murmurs Abdomen: Present: Normal Bowel Sounds. No: Tenderness, Distention, Peritoneal Signs Back: Present: Normal Inspection Upper Extremity: Present: Normal Inspection. No: Cyanosis, Edema Lower Extremity: Present: Normal Inspection. No: Edema Neurological: Present: GCS=15, CN II-XII Intact, Speech Normal Skin: Present: Warm, Dry, Normal Color. No: Rashes Psychiatric: Present: Alert, Oriented x 3, Normal Insight, Normal Concentration <Kwadwo,Nahim P - Last Filed: 07/08/17 02:22> Vital Signs Temp Pulse Resp BP Pulse Ox 07/08/17 01:56 93 H 20 105/60 95 07/08/17 00:29 97.9 F 95 H 18 130/91 H 96 Medical Decision Making Re-evaluation Time: 02:27 Reassessment Condition: Re-examined, Improved <Josemanuel Burkett - Last Filed: 07/08/17 02:22> <Vernon Vila - Last Filed: 07/08/17 03:41> ED Course and Treatment: 07/08/17 02:26 Patient came with urinary retention. Woods catheter was placed by RN. Total of 700 cc of urine was visualized. Patient feels better, and he stated he has an appointment to see Dr. Rebolledo tomorrow. (Josemanuel Burkett) - PA / INSTALLER APPRENTICE / Resident Statement / has reviewed & agrees with the documentation as recorded. / has examined the patient and agrees with the treatment plan. <Vernon Vila - Last Filed: 07/08/17 03:41> Disposition/Present on Arrival - Present on Arrival Any Indicators Present on Arrival: No History of DVT/PE: No History of Uncontrolled Diabetes: No Urinary Catheter: No History of Decub. Ulcer: No History Surgical Site Infection Following: None - Disposition Have Diagnosis and Disposition been Completed?: Yes Disposition Time: 02:27 Patient Plan: Discharge <Josemanuel Burkett - Last Filed: 07/08/17 02:22> <Vernon Vila - Last Filed: 07/08/17 03:41> - Disposition Diagnosis: Urinary retention Disposition: HOME/ ROUTINE Condition: IMPROVED Discharge Instructions (ExitCare): Woods Catheter, Male, Urinary Retention Additional Instructions: Make sure to see DR. Rebolledo today or tomorrow. Return to emergency if symptoms worsen. continue with home Bactrim DS as instructed by your doctor. Referrals: Agustin Rebolledo MD [Staff Provider] - Follow up with primary Forms: [employer] (Tajik)
== END 2017-07-08 03:15 | disposition home or self-care (01) ==
LOC: ED 23:43
DX: R33.9 Retention of urine, unspecified (principal); I10 Essential (primary) hypertension; F17.210 Nicotine dependence, cigarettes, uncomplicated

== ENCOUNTER 2017-07-13 19:57 | Emergency (ER) | payer MEDICARE ==
[2017-07-13 19:57] VITALS: BMI 25.4
[2017-07-13] MEDS ORDERED: Morphine 4 mg/ml ISec IVP STA ×2 (20:21→21:04)
[2017-07-13] MEDS ORDERED: Morphine 2 mg/ml ISec IVP STA (21:01)
--- NOTE | 2017-07-13 21:25 | ED PDOC ---
Arrival/HPI - General Chief Complaint: Male Genitourinary Time Seen by Provider: 07/13/17 20:10 Historian: Patient - History of Present Illness Narrative History of Present Illness (Text): 07/13/17 21:25 A 66 year old male, whose past medical history includes hypertension, hyperlipidemia, and prostate disease, with guzman catheter, presents to the emergency department complaining of urinary retention. Patient states he had his guzman catheter removed by Dr. Rebolledo today. Patient was unable to urinate, attempts at placing cath by Dr. Rebolledo was unsuccessful. Patient now presents to the emergency department to meet with Dr. Rebolledo for further attempt at catheter placement. Patient was requesting pain medications. Case was discussed with Dr. Rebolledo, who states he is on his way to emergency department for further attempts at guzman catheter placement. Patient denies any other complaints at this time. Symptom Onset: Sudden Symptom Course: Unchanged Activities at Onset: Rest Associated Symptoms (Text): none Past Medical History - Provider Review Nursing Documentation Reviewed: Yes - Infectious Disease Hx of Infectious Diseases: None - Tetanus Immunization Tetanus Immunization: Unknown - Cardiac Hx Cardiac Disorders: Yes (CABG) Hx Hypertension: Yes - Pulmonary Hx Respiratory Disorders: Yes (SMOKES 1.5 PPD NOW. USED TO SMOKE 3 PPD) - Neurological Hx Neurological Disorder: No Hx Alzheimer's Disease: No HX Cerebrovascular Accident: No Hx Dementia: No Hx Dizziness: No Hx Meningitis: No Hx Migraine: No Hx Parkinson's Disease: No Hx Seizures: No Hx Transient Ischemic Attacks (TIA): No - HEENT Hx HEENT Disorder: Yes (ringing in the ears) Hx Blind: No Hx Cataracts: No Hx Deafness: No Hx Difficulty Chewing: No Hx Epistaxis: No Hx Glaucoma: No Hx Macular Degeneration: No - Renal Hx Renal Disorder: No Hx Dialysis: No Hx Kidney Stones: No Hx Neurogenic Bladder: No Hx Pyelonephritis: No Hx Renal Cancer: No Hx Renal Failure: No - Endocrine/Metabolic Hx Endocrine Disorders: No Hx Adrenal Cancer: No Hx Diabetes Insipidus: No Hx Diabetes Mellitus Type 1: No Hx Diabetes Mellitus Type 2: No Hx Hyperthyroidism: No Hx Hypothyroidism: No Hx Systemic Lupus Erythematosus: No - Hematological/Oncological Hx Blood Disorders: No Hx AIDS: No Hx Anemia: No Hx Cancer: No Hx Chemotherapy: No Hx Cirrhosis: No Hx Hepatitis A: No Hx Hepatitis B: No Hx Hepatitis C: No Hx Metastasis: No Hx Shingles: No Hx Unexplained Bleeding: No - Integumentary Hx Dermatological Disorder: No Hx Basal Cell Carcinoma: No Hx Eczema: No Hx Melanoma: No Hx Psoriasis: No Hx Squamous Cell Carcinoma: No - Musculoskeletal/Rheumatological Hx Musculoskeletal Disorders: Yes (BILATERAL KNEE SX) Hx Falls: No - Gastrointestinal Hx Gastrointestinal Disorders: Yes (APPENDECTOMY) Hx Colostomy: No Hx Crohn's Disease: No Hx Diverticulitis: No Hx Gall Bladder Disease: No Hx Gastroesophageal Reflux: No Hx Gastrointestinal Ulcer: No Hx Ileostomy: No Hx Liver Failure: No Hx Pancreatitis: No HX Swallowing Problems: No - Genitourinary/Gynecological Hx Genitourinary Disorders: Yes (URINARY RETENTION H/O) Hx Hematuria: No Hx Incontinence: No Hx Prostate Problems: Yes Hx Sexually Transmitted Diseases: No Hx Urinary Tract Infection: No - Psychiatric Hx Psychophysiologic Disorder: No Hx Emotional Abuse: No Hx Physical Abuse: No Hx Substance Use: No - Surgical History Hx Appendectomy: Yes Hx Cardiac Catheterization: Yes (cabg x1) Hx Coronary Stent: Yes (X4) Hx Orthopedic Surgery: Yes (both knee) - Anesthesia Hx Anesthesia Reactions: No - Suicidal Assessment Feels Threatened In Home Enviroment: No Family/Social History - Physician Review Nursing Documentation Reviewed: Yes Family/Social History: No Known Family HX Smoking Status: Heavy Smoker > 10 Cigarettes Daily Hx Alcohol Use: Yes (WINE DAILY WITH MEALS H/O) Hx Substance Use: No Hx Substance Use Treatment: No Allergies/Home Meds Allergies/Adverse Reactions: Allergies No Known Allergies Allergy (Verified 07/08/17 00:27) Home Medications: Home Meds Medication Instructions Recorded Confirmed Aspirin [Ecotrin] 81 mg PO DAILY 12/11/15 07/08/17 Clopidogrel [Plavix] 75 mg PO DAILY 12/11/15 07/08/17 Metoprolol Tartrate 50 mg PO BID 12/11/15 07/08/17 Ramipril [Altace] 1.25 mg PO DAILY 12/11/15 07/08/17 Atorvastatin [Lipitor] 40 mg PO DAILY 07/19/16 07/08/17 Ezetimibe [Zetia] 10 mg PO DAILY 12/03/16 07/08/17 Bupropion HCl [Zyban] 75 mg PO DAILY 02/26/17 07/08/17 Review of Systems - Physician Review All systems were reviewed & negative as marked: Yes - Review of Systems Constitutional: absent: Fevers Respiratory: absent: SOB Genitourinary Male: Other (urinary retention) Physical Exam Vital Signs Reviewed: Yes Vital Signs Pulse Resp BP Pulse Ox 07/13/17 21:57 104 H 17 108/74 98 07/13/17 21:02 121 H 18 132/105 H 95 Blood Pressure: Hypertensive Pulse: Tachycardic Respiratory Rate: Normal Appearance: Positive for: Well-Appearing, Non-Toxic, Comfortable Pain Distress: None Mental Status: Positive for: Alert and Oriented X 3 - Systems Exam Head: Present: Atraumatic, Normocephalic Pupils: Present: PERRL Extroacular Muscles: Present: EOMI Conjunctiva: Present: Normal Mouth: Present: Moist Mucous Membranes Neck: Present: Normal Range of Motion Respiratory/Chest: Present: Clear to Auscultation, Good Air Exchange. No: Respiratory Distress, Accessory Muscle Use Cardiovascular: Present: Regular Rate and Rhythm, Normal S1, S2. No: Murmurs Abdomen: Present: Distention (suprapubic), Normal Bowel Sounds. No: Tenderness , Peritoneal Signs Back: Present: Normal Inspection Upper Extremity: Present: Normal Inspection. No: Cyanosis, Edema Lower Extremity: Present: Normal Inspection. No: Edema Neurological: Present: GCS=15, CN II-XII Intact, Speech Normal Skin: Present: Warm, Dry, Normal Color. No: Rashes Psychiatric: Present: Alert, Oriented x 3, Normal Insight, Normal Concentration Medical Decision Making ED Course and Treatment: 07/13/17 21:23 Impression: A 66 year old male with urinary retention. Plan: -- Morphine -- Reassess and disposition Prior Visits: Notes and results from previous visits were reviewed. Patient was last seen in the emergency department on 07/07/17 for evaluation of urinary retention. Progress Notes: 07/13/17 22:45 Pt. had guzman catheter placed by his urologist with passage of urine and dramatic relief. - Medication Orders Current Medication Orders: Discontinued Medications Piperacillin Sod/Tazobactam Sod (Zosyn 3.375 In Ns 100ml) 100 mls @ 200 mls/hr IV STAT STA PRN Reason: Protocol Stop: 07/13/17 22:30 Last Admin: 02/26/18 22:16 Dose: 200 mls/hr eMAR Start Stop Document 07/13/17 22:16 IT (Rec: 07/13/17 22:16 IT [id number]) Intravenous Solution Start Date 07/13/17 Start Time 22:16 End Date 07/13/17 Morphine Sulfate (Morphine) 4 mg IVP STAT STA Stop: 07/13/17 20:22 Last Admin: 07/13/17 20:37 Dose: 4 mg MAR Pain Assessment Document 07/13/17 20:37 IT (Rec: 07/13/17 20:37 IT [id number]) Pain Reassessment Is this a pain reassessment? No Sleep Is patient sleeping during reassessment? No Presence of Pain Presence of Pain Yes Pain Scale Used Pain Scale Used Numeric IVP Administration Document 07/13/17 20:37 IT (Rec: 07/13/17 20:37 IT [id number]) Charges for Administration # of IVP Administrations 1 Morphine Sulfate (Morphine) 4 mg IVP STAT STA Stop: 07/13/17 21:05 Last Admin: 07/13/17 21:12 Dose: 4 mg MAR Pain Assessment Document 07/13/17 21:12 IT (Rec: 07/13/17 21:14 IT [id number]) Pain Reassessment Is this a pain reassessment? No IVP Administration Document 07/13/17 21:12 IT (Rec: 07/13/17 21:14 IT [id number]) Charges for Administration # of IVP Administrations 1 - Scribe Statement The provider has reviewed the documentation as recorded by the Tobin Boston Provider Scribe Attestation: All medical record entries made by the Klausibdl were at my direction and personally dictated by me. I have reviewed the chart and agree that the record accurately reflects my personal performance of the history, physical exam, medical decision making, and the department course for this patient. I have also personally directed, reviewed, and agree with the discharge instructions and disposition. Disposition/Present on Arrival - Present on Arrival Any Indicators Present on Arrival: No History of DVT/PE: No History of Uncontrolled Diabetes: No Urinary Catheter: No History of Decub. Ulcer: No History Surgical Site Infection Following: None - Disposition Have Diagnosis and Disposition been Completed?: Yes Diagnosis: Urinary retention Disposition: HOME/ ROUTINE Disposition Time: 23:15 Patient Plan: Discharge Condition: GOOD Discharge Instructions (ExitCare): Guzman Catheter, Male, Urinary Retention (DC) Additional Instructions: Follow up with as per his instructions. Referrals: Cindy Burgess MD [Primary Care Provider] - Follow up with primary Forms: [employer] (Citizen Of [place])
[2017-07-13 21:57] VITALS: RESP 17; O2SAT 98
[2017-07-13] MEDS ORDERED: Piperacillin/Tazobact 3.375 gm 100 ML IV STA (22:01)
[2017-07-13 23:55] VITALS: BP 136/86; PULSE 98; TEMP 98.2
== END 2017-07-13 22:45 | disposition home or self-care (01) ==
LOC: ED 19:57
DX: R33.9 Retention of urine, unspecified (principal)
CPT/HCPCS: 96374; 96375; 96376; 99285; J2270; J2543

== ENCOUNTER 2017-07-18 04:48 | Emergency (ER) | payer MEDICARE ==
[2017-07-18 04:49] VITALS: BMI 25.4
--- NOTE | 2017-07-18 05:05 | ED PDOC ---
Arrival/HPI - General Time Seen by Provider: 07/18/17 04:50 Historian: Patient - History of Present Illness Narrative History of Present Illness (Text): 07/18/17 05:05 Jovan Freitas is a 66 year old male, whose past medical history includes BPH, hypertension, hyperlipidemia, and CAD, who presents to the Emergency department complaining of urinary retention. Patient states he recently had a Woods catheter removed yesterday at his urologist's office, and was prescribed Flomax and antibiotics. Patient states since then he has been unable to void his bladder and notes associated discomfort. Patient notes symptoms are similar to previous episodes of urinary retention. Patient requesting pain medication. Patient denies any vomiting, diarrhea, back pain, neck pain, fever, chills, or any other complaints. Urologist: Dr. Rebolledo Time/Duration: Other (yesterday) Symptom Onset: Gradual Symptom Course: Unchanged Activities at Onset: Light Context: Home Past Medical History - Provider Review Nursing Documentation Reviewed: Yes - Infectious Disease Hx of Infectious Diseases: None - Tetanus Immunization Tetanus Immunization: Unknown - Cardiac Hx Cardiac Disorders: Yes (CABG) Hx Hypertension: Yes - Pulmonary Hx Respiratory Disorders: Yes (SMOKES 1.5 PPD NOW. USED TO SMOKE 3 PPD) - Neurological Hx Neurological Disorder: No Hx Alzheimer's Disease: No HX Cerebrovascular Accident: No Hx Dementia: No Hx Dizziness: No Hx Meningitis: No Hx Migraine: No Hx Parkinson's Disease: No Hx Seizures: No Hx Transient Ischemic Attacks (TIA): No - HEENT Hx HEENT Disorder: Yes (ringing in the ears) Hx Blind: No Hx Cataracts: No Hx Deafness: No Hx Difficulty Chewing: No Hx Epistaxis: No Hx Glaucoma: No Hx Macular Degeneration: No - Renal Hx Renal Disorder: No Hx Dialysis: No Hx Kidney Stones: No Hx Neurogenic Bladder: No Hx Pyelonephritis: No Hx Renal Cancer: No Hx Renal Failure: No - Endocrine/Metabolic Hx Endocrine Disorders: No Hx Adrenal Cancer: No Hx Diabetes Insipidus: No Hx Diabetes Mellitus Type 1: No Hx Diabetes Mellitus Type 2: No Hx Hyperthyroidism: No Hx Hypothyroidism: No Hx Systemic Lupus Erythematosus: No - Hematological/Oncological Hx Blood Disorders: No Hx AIDS: No Hx Anemia: No Hx Cancer: No Hx Chemotherapy: No Hx Cirrhosis: No Hx Hepatitis A: No Hx Hepatitis B: No Hx Hepatitis C: No Hx Metastasis: No Hx Shingles: No Hx Unexplained Bleeding: No - Integumentary Hx Dermatological Disorder: No Hx Basal Cell Carcinoma: No Hx Eczema: No Hx Melanoma: No Hx Psoriasis: No Hx Squamous Cell Carcinoma: No - Musculoskeletal/Rheumatological Hx Musculoskeletal Disorders: Yes (BILATERAL KNEE SX) Hx Falls: No - Gastrointestinal Hx Gastrointestinal Disorders: Yes (APPENDECTOMY) Hx Colostomy: No Hx Crohn's Disease: No Hx Diverticulitis: No Hx Gall Bladder Disease: No Hx Gastroesophageal Reflux: No Hx Gastrointestinal Ulcer: No Hx Ileostomy: No Hx Liver Failure: No Hx Pancreatitis: No HX Swallowing Problems: No - Genitourinary/Gynecological Hx Genitourinary Disorders: Yes (URINARY RETENTION H/O) Hx Hematuria: No Hx Incontinence: No Hx Prostate Problems: Yes Hx Sexually Transmitted Diseases: No Hx Urinary Tract Infection: No - Psychiatric Hx Psychophysiologic Disorder: No Hx Emotional Abuse: No Hx Physical Abuse: No Hx Substance Use: No - Surgical History Hx Appendectomy: Yes Hx Cardiac Catheterization: Yes (cabg x1) Hx Coronary Stent: Yes (X4) Hx Orthopedic Surgery: Yes (both knee) - Anesthesia Hx Anesthesia Reactions: No - Suicidal Assessment Feels Threatened In Home Enviroment: No Family/Social History - Physician Review Nursing Documentation Reviewed: Yes Family/Social History: Unknown Family HX Smoking Status: Heavy Smoker > 10 Cigarettes Daily Hx Alcohol Use: Yes (WINE DAILY WITH MEALS H/O) Hx Substance Use: No Hx Substance Use Treatment: No Allergies/Home Meds Allergies/Adverse Reactions: Allergies No Known Allergies Allergy (Verified 07/08/17 00:27) Home Medications: Home Meds Medication Instructions Recorded Confirmed Aspirin [Ecotrin] 81 mg PO DAILY 12/11/15 07/08/17 Clopidogrel [Plavix] 75 mg PO DAILY 12/11/15 07/08/17 Metoprolol Tartrate 50 mg PO BID 12/11/15 07/08/17 Ramipril [Altace] 1.25 mg PO DAILY 12/11/15 07/08/17 Atorvastatin [Lipitor] 40 mg PO DAILY 07/19/16 07/08/17 Ezetimibe [Zetia] 10 mg PO DAILY 12/03/16 07/08/17 Bupropion HCl [Zyban] 75 mg PO DAILY 02/26/17 07/08/17 Review of Systems - Physician Review All systems were reviewed & negative as marked: Yes - Review of Systems Constitutional: Normal. absent: Fevers Eyes: Normal ENT: Normal Respiratory: Normal. absent: SOB, Cough Cardiovascular: Normal. absent: Chest Pain Gastrointestinal: Normal. absent: Abdominal Pain, Diarrhea, Nausea, Vomiting Genitourinary Male: Urinary Output Changes (+urinary retention). absent: Dysuria, Frequency, Hematuria Musculoskeletal: Normal. absent: Back Pain, Neck Pain Skin: Normal. absent: Rash Neurological: Normal. absent: Headache, Dizziness Endocrine: Normal Hemo/Lymphatic: Normal Psychiatric: Normal Physical Exam Vital Signs Reviewed: Yes Vital Signs Temp Pulse Resp BP Pulse Ox 07/18/17 04:57 97.5 F L 110 H 18 143/100 H 95 Temperature: Afebrile Blood Pressure: Normal Pulse: Regular Respiratory Rate: Normal Appearance: Positive for: Well-Appearing, Non-Toxic, Comfortable Pain Distress: None Mental Status: Positive for: Alert and Oriented X 3 - Systems Exam Head: Present: Atraumatic, Normocephalic Pupils: Present: PERRL Extroacular Muscles: Present: EOMI Conjunctiva: Present: Normal Mouth: Present: Moist Mucous Membranes Neck: Present: Normal Range of Motion Respiratory/Chest: Present: Clear to Auscultation, Good Air Exchange. No: Respiratory Distress, Accessory Muscle Use Cardiovascular: Present: Regular Rate and Rhythm, Normal S1, S2. No: Murmurs Abdomen: Present: Distention (Mild suprapubic distention), Normal Bowel Sounds. No: Tenderness, Peritoneal Signs Back: Present: Normal Inspection Upper Extremity: Present: Normal Inspection. No: Cyanosis, Edema Lower Extremity: Present: Normal Inspection. No: Edema Neurological: Present: GCS=15, CN II-XII Intact, Speech Normal Skin: Present: Warm, Dry, Normal Color. No: Rashes Psychiatric: Present: Alert, Oriented x 3, Normal Insight, Normal Concentration Medical Decision Making ED Course and Treatment: 07/18/17 05:05 Impression: 66 year old male complaining of urinary retention since yesterday. Differential Diagnosis included but are not limited to: urinary retention vs. BPH Plan: -- Woods catheter placement -- Reassess and disposition Prior Visits: Notes and results from previous visits were reviewed. On 07/13/2017, pt was seen in the Emergency department for urinary retention. Pt was d/c home. Progress Notes: 07/18/17 05:30 Woods catheter placed by RN without difficulty. Draining urine. Pt tolerated procedure well. 07/18/17 06:40 Pt. drained ~700-800 cc urine with relief.Case was d/w pts. urologist .Pt. for d/c with catheter/leg bag in place.To continue his prescribed antibiotics.Will follow up with later today. - Medication Orders Current Medication Orders: Discontinued Medications Morphine Sulfate (Morphine) 2 mg IVP STAT STA Stop: 07/18/17 05:29 Last Admin: 07/18/17 05:37 Dose: 2 mg MAR Pain Assessment Document 07/18/17 05:37 IT (Rec: 07/18/17 05:[address] [facility] [place]-[id number]) Pain Reassessment Is this a pain reassessment? No Sleep Is patient sleeping during reassessment? No Presence of Pain Presence of Pain Yes Pain Scale Used Pain Scale Used Numeric IVP Administration Document 07/18/17 05:37 IT (Rec: 07/18/17 05:[address] [facility] [place]-[id number]) Charges for Administration # of IVP Administrations 1 - Scribe Statement The provider has reviewed the documentation as recorded by the Scribe Sugar Cruz All medical record entries made by the Scribe were at my direction and personally dictated by me. I have reviewed the chart and agree that the record accurately reflects my personal performance of the history, physical exam, medical decision making, and the department course for this patient. I have also personally directed, reviewed, and agree with the discharge instructions and disposition. Disposition/Present on Arrival - Present on Arrival Any Indicators Present on Arrival: No History of DVT/PE: No History of Uncontrolled Diabetes: No Urinary Catheter: No History Surgical Site Infection Following: None - Disposition Have Diagnosis and Disposition been Completed?: Yes Diagnosis: Urinary retention Disposition: HOME/ ROUTINE Disposition Time: 06:50 Patient Plan: Discharge Condition: GOOD Discharge Instructions (ExitCare): Woods Catheter, Male, Urinary Retention (DC) Additional Instructions: Maintain Woods catheter/leg bag/continue your antibiotics/ to follow up with you later today.
[2017-07-18] MEDS ORDERED: Morphine 2 mg/ml ISec IVP STA (05:28)
[2017-07-18 06:53] VITALS: RESP 16; TEMP 97.6
[2017-07-18 07:05] VITALS: BP 120/73; PULSE 93; O2SAT 98
== END 2017-07-18 07:04 | disposition home or self-care (01) ==
LOC: ED 04:48
DX: N40.1 Benign prostatic hyperplasia with lower urinary tract symptoms (principal); R33.8 Other retention of urine; I10 Essential (primary) hypertension; I25.10 Atherosclerotic heart disease of native coronary artery without angina pectoris; E78.5 Hyperlipidemia, unspecified; F17.210 Nicotine dependence, cigarettes, uncomplicated
CPT/HCPCS: 96374; 99285; J2270

== ENCOUNTER 2017-07-24 21:10 | Emergency (ER) | payer MEDICARE ==
[2017-07-24 21:21] VITALS: BMI 28.3
[2017-07-24] MEDS ORDERED: Morphine 2 mg/ml ISec IM STA (21:25)
--- NOTE | 2017-07-24 21:31 | ED PDOC ---
Arrival/HPI - General Historian: Patient - History of Present Illness Time/Duration: 24 hours Symptom Onset: Sudden Symptom Course: Worsening Quality: Pressure, Stabbing, Fullness <Ernesto Avilez - Last Filed: 07/24/17 21:27> <Forrest Chandler DO - Last Filed: 07/25/17 05:53> - General Chief Complaint: Male Genitourinary - History of Present Illness Narrative History of Present Illness (Text): 07/24/17 21:27 66M pmhx significant for BPH, urinary retention, HTN, hyperlipidemia, CAD presents to [facility] [place] [facility] [place] [facility] w/ suprapubic pain and urinary retention. Patient was to undergo prostate scrapping yesterday by Urologist, however was cancelled due to being on blood thinners s/p cardiac stent. Today patient was urinating ok, however at 1400, could no longer urinate and suprapubic pain started to ensue. Patient is uncomfortable in any position. Requesting pain medication Denies current nausea, vomiting, fevers, chills, chest pain, shortness of breath , changes in vision, numbness/tingling in extremities. Urologist: Dr. Boss (Ernesto Avilez) Past Medical History - Provider Review Nursing Documentation Reviewed: Yes - Travel History Have you recently traveled outside [place] w/in the past 3 mons?: No - Past History Past History: Non-Contributing - Infectious Disease Hx of Infectious Diseases: None - Tetanus Immunization Tetanus Immunization: Unknown - Cardiac Hx Pacemaker: No - Pulmonary Hx Respiratory Disorders: Yes (SMOKES 1.5 PPD NOW. USED TO SMOKE 3 PPD) - Neurological Hx Paralysis: No - HEENT Hx HEENT Disorder: Yes (ringing in the ears) Hx Blind: No Hx Cataracts: No Hx Deafness: No Hx Difficulty Chewing: No Hx Epistaxis: No Hx Glaucoma: No Hx Macular Degeneration: No - Renal Hx Renal Disorder: No Hx Dialysis: No Hx Kidney Stones: No Hx Neurogenic Bladder: No Hx Pyelonephritis: No Hx Renal Cancer: No Hx Renal Failure: No - Endocrine/Metabolic Hx Endocrine Disorders: No Hx Adrenal Cancer: No Hx Diabetes Insipidus: No Hx Diabetes Mellitus Type 1: No Hx Diabetes Mellitus Type 2: No Hx Hyperthyroidism: No Hx Hypothyroidism: No Hx Systemic Lupus Erythematosus: No - Hematological/Oncological Hx Blood Transfusions: No Hx Blood Transfusion Reaction: No - Integumentary Hx Dermatological Disorder: No Hx Basal Cell Carcinoma: No Hx Eczema: No Hx Melanoma: No Hx Psoriasis: No Hx Squamous Cell Carcinoma: No - Musculoskeletal/Rheumatological Hx Musculoskeletal Disorders: Yes (BILATERAL KNEE SX) - Gastrointestinal Hx Gastrointestinal Disorders: Yes (APPENDECTOMY) Hx Colostomy: No Hx Crohn's Disease: No Hx Diverticulitis: No Hx Gall Bladder Disease: No Hx Gastroesophageal Reflux: No Hx Gastrointestinal Ulcer: No Hx Ileostomy: No Hx Liver Failure: No Hx Pancreatitis: No HX Swallowing Problems: No - Genitourinary/Gynecological Hx Genitourinary Disorders: Yes (URINARY RETENTION H/O) Hx Hematuria: No Hx Incontinence: No Hx Prostate Problems: Yes Hx Sexually Transmitted Diseases: No Hx Urinary Tract Infection: No - Psychiatric Hx Psychophysiologic Disorder: No Hx Emotional Abuse: No Hx Physical Abuse: No Hx Substance Use: No - Surgical History Hx Appendectomy: Yes Hx Cardiac Catheterization: Yes (cabg x1) Hx Coronary Stent: Yes (X4) Hx Orthopedic Surgery: Yes (both knee) - Anesthesia Hx Anesthesia Reactions: No Hx Malignant Hyperthermia: No - Suicidal Assessment Feels Threatened In Home Enviroment: No <Ernesto Avilez - Last Filed: 07/24/17 21:27> Family/Social History - Physician Review Nursing Documentation Reviewed: Yes Family/Social History: Other (Non-contributory) Smoking Status: Heavy Smoker > 10 Cigarettes Daily Hx Alcohol Use: Yes (WINE DAILY WITH MEALS H/O) Hx Substance Use: No Hx Substance Use Treatment: No <Ernesto Avilez - Last Filed: 07/24/17 21:27> Allergies/Home Meds <Ernesto Avilez - Last Filed: 07/24/17 21:27> <Forrest Chandler DO - Last Filed: 07/25/17 05:53> Allergies/Adverse Reactions: Allergies No Known Allergies Allergy (Verified 07/08/17 00:27) Home Medications: Home Meds Medication Instructions Recorded Confirmed Aspirin [Ecotrin] 81 mg PO DAILY 12/11/15 07/24/17 Clopidogrel [Plavix] 75 mg PO DAILY 12/11/15 07/24/17 Metoprolol Tartrate 50 mg PO BID 12/11/15 07/24/17 Ramipril [Altace] 1.25 mg PO DAILY 12/11/15 07/24/17 Atorvastatin [Lipitor] 40 mg PO DAILY 07/19/16 07/24/17 Ezetimibe [Zetia] 10 mg PO DAILY 12/03/16 07/24/17 Review of Systems - Physician Review All systems were reviewed & negative as marked: Yes - Review of Systems Constitutional: absent: Fevers Eyes: Normal ENT: Normal Respiratory: Normal Cardiovascular: Normal Gastrointestinal: Abdominal Pain (suprapubic) Genitourinary Male: Urinary Output Changes (Urinary retention) Musculoskeletal: Normal Skin: Normal Neurological: Normal Endocrine: Normal Hemo/Lymphatic: Normal <Ernesto Avilez - Last Filed: 07/24/17 21:27> Physical Exam Vital Signs Reviewed: Yes Temperature: Afebrile Blood Pressure: Normal Pulse: Tachycardic Respiratory Rate: Normal Appearance: Positive for: Well-Appearing, Non-Toxic, Uncomfortable Pain Distress: Moderate Mental Status: Positive for: Alert and Oriented X 3 - Systems Exam Head: Present: Atraumatic, Normocephalic Extroacular Muscles: Present: EOMI Conjunctiva: Present: Normal Mouth: Present: Moist Mucous Membranes Neck: Present: Normal Range of Motion Respiratory/Chest: Present: Clear to Auscultation, Good Air Exchange. No: Respiratory Distress, Accessory Muscle Use Cardiovascular: Present: Regular Rate and Rhythm, Normal S1, S2, Tachycardic. No: Murmurs Abdomen: Present: Tenderness, Distention. No: Peritoneal Signs Upper Extremity: Present: Normal Inspection, NORMAL PULSES Lower Extremity: Present: Normal Inspection, NORMAL PULSES Neurological: Present: GCS=15, Speech Normal Skin: Present: Warm Psychiatric: Present: Alert, Oriented x 3 <Ernesto Avilez - Last Filed: 07/24/17 21:27> Vital Signs Temp Pulse Resp BP Pulse Ox 07/24/17 23:50 98.2 F 90 18 123/92 H 100 07/24/17 21:21 97.4 F L 106 H 20 151/110 H 96 Medical Decision Making <Ernesto Avilez - Last Filed: 07/24/17 21:27> <Forrest Chandler DO - Last Filed: 07/25/17 05:53> ED Course and Treatment: 07/24/17 21:33 IM Morphine for pain Insertion of Guzman catheter w/ 12F tube Plan to D/C w/ guzman and leg bag in place Patient states he has enough flomax and pain control (Ernesto Avilez) Patient Seen With Resident: In agreement with resident note which contains more details about the patient. Patient was seen and evaluated with resident. Came up with plan and treatment together. 66 year old male presents complaining of suprapubic pain and urinary retention. Plan: -- Morphine -- Apply urinary Leg bag -- Urinary Catheter Insertion (Forrest Chandler DO) - Medication Orders Current Medication Orders: Discontinued Medications Morphine Sulfate (Morphine) 2 mg IM STAT STA Stop: 07/24/17 21:26 Last Admin: 07/24/17 21:33 Dose: 2 mg MAR Pain Assessment Document 07/24/17 21:33 IT (Rec: 07/24/17 21:33 IT [id number]) Pain Reassessment Is this a pain reassessment? No Sleep Is patient sleeping during reassessment? No Presence of Pain Presence of Pain Yes Pain Scale Used Pain Scale Used Numeric Location Pain Location Body Site Groin Description Description Sharp IM Administration Charges Document 07/24/17 21:33 IT (Rec: 07/24/17 21:33 IT [id number]) Injection Site MAR Injection Site Right Deltoid Charges for Administration # of IM Administrations 1 - PA / PEARL HAND / Resident Statement BLAS has reviewed & agrees with the documentation as recorded. / has examined the patient and agrees with the treatment plan. <Ernesto Avilez - Last Filed: 07/24/17 21:27> - PA / PEARL HAND / Resident Statement BLAS has reviewed & agrees with the documentation as recorded. BLAS has examined the patient and agrees with the treatment plan. - Scribe Statement The provider has reviewed the documentation as recorded by the Scribe <Geraldine ROMEROForrest - Last Filed: 07/25/17 05:53> - Scribe Statement Giana Torre Provider Scribe Attestation: All medical record entries made by the Scribe were at my direction and personally dictated by me. I have reviewed the chart and agree that the record accurately reflects my personal performance of the history, physical exam, medical decision making, and the department course for this patient. I have also personally directed, reviewed, and agree with the discharge instructions and disposition. (Forrest Chandler DO) Disposition/Present on Arrival - Present on Arrival Any Indicators Present on Arrival: No History of DVT/PE: No History of Uncontrolled Diabetes: No Urinary Catheter: No History of Decub. Ulcer: No History Surgical Site Infection Following: None - Disposition Have Diagnosis and Disposition been Completed?: Yes Disposition Time: 21:35 Patient Plan: Discharge <Ernesto Avilez - Last Filed: 07/24/17 21:27> - Disposition Disposition Time: 21:30 <Forrest Chandler DO - Last Filed: 07/25/17 05:53> - Disposition Diagnosis: Urinary retention due to benign prostatic hyperplasia Disposition: HOME/ ROUTINE Condition: IMPROVED Discharge Instructions (ExitCare): Urinary Retention (DC) Additional Instructions: Thank you for letting us take care of you today. You were treated for Urinary retention. The emergency medical care you received today was directed at your acute symptoms. If you were prescribed any medication, please fill it and take as directed. It may take several days for your symptoms to resolve. Return to the Emergency Department if your symptoms worsen, do not improve, or if you have any other problems. Please contact your doctor or call one of the physicians/clinics you have been referred to that are listed on the Patient Visit Information form that is included in your discharge packet. Bring any paperwork you were given at discharge with you along with any medications you are taking to your follow up visit. Our treatment cannot replace ongoing medical care by a primary care provider (PCP) outside of the emergency department. Thank you for allowing the [facility] team to be part of your care today. Referrals: Cindy Burgess MD [Primary Care Provider] - Follow up with primary Forms: [employer] (Telugu)
[2017-07-25 00:13] VITALS: BP 123/92; PULSE 90; RESP 18; TEMP 98.2; O2SAT 100
== END 2017-07-24 23:50 | disposition home or self-care (01) ==
LOC: ED 21:10
DX: N40.1 Benign prostatic hyperplasia with lower urinary tract symptoms (principal); R33.8 Other retention of urine
CPT/HCPCS: 96372; 99284; J2270

== ENCOUNTER 2017-07-30 17:29 | Observation (INO) | payer MEDICARE ==
[2017-07-30 17:30] VITALS: BMI 28.3
[2017-07-30 18:57] LABS: BASO # 0.05 K/mm3 (0.0-2.0); BASO % 0.7 % (0.0-3.0); EOS # 0.3 (0.0-0.7); GRAN # 4.71 (1.4-6.5); LYMPH # 1.7 (1.2-3.4); LYMPH % 23.2 % (22.0-35.0); MEAN CELL VOLUME 91.2 fl (80.0-105.0); MEAN CORPUSCULAR HEMOGLOBIN 30.2 pg (25.0-35.0); MEAN CORPUSCULAR HGB CONC 33.2 g/dl (31.0-37.0); MEAN PLATELET VOLUME 9.3 fl (7.0-11.0); MONO # 0.7 (0.1-0.6); MONO % 9.1 % (1.0-6.0); RBC 4.3 10^6/uL (3.5-6.1); RED CELL DISTRIBUTION WIDTH 14.3 % (11.5-14.5); WHITE BLOOD COUNT 7.5 10^3/ul (4.5-11.0)
--- NOTE | 2017-07-30 18:58 | ED PDOC ---
Arrival/HPI - General Historian: Patient - History of Present Illness Time/Duration: > month Symptom Onset: Gradual Symptom Course: Unchanged Quality: Aching, Pressure Severity Level: 1 Activities at Onset: Rest Context: Home - General Chief Complaint: Male Genitourinary Time Seen by Provider: 07/30/17 17:37 - History of Present Illness Narrative History of Present Illness (Text): 07/30/17 18:59 Pt is a 66 year old male who presents to the Emergency department complaining of urinary issues with a PmH of BPH, urinary retention, hypertension, and hyperlipidemia, CAD with a stent. Pt has had several visits to the Emergency department for severe urine retention and guzman placement and was scheduled to have a prostate scraping last week but was cancelled due to blood thinners. Pt was advised by the urologist, Dr. Rebolledo, to visit the Emergency department to get admitted for failed outpatient treatment. Pt denies pelvic pain, oliguria, hematuria, fever, chills, chest pain or sob or any other complaints. Currently being treated by Dr. Rebolledo for UTI for the past day. 07/31/17 12:53 (Angelika Bhatia) Past Medical History - Provider Review Nursing Documentation Reviewed: Yes - Travel History Have you recently traveled outside [place] w/in the past 3 mons?: No - Past History Past History: Non-Contributing - Infectious Disease Hx of Infectious Diseases: None - Tetanus Immunization Tetanus Immunization: Unknown - Cardiac Hx Cardiac Disorders: Yes - Pulmonary Hx Respiratory Disorders: Yes (SMOKES 1.5 PPD NOW. USED TO SMOKE 3 PPD) - Neurological Hx Neurological Disorder: No - HEENT Hx HEENT Disorder: Yes (ringing in the ears) - Renal Hx Renal Disorder: No - Endocrine/Metabolic Hx Endocrine Disorders: No - Hematological/Oncological Hx Blood Disorders: No - Integumentary Hx Dermatological Disorder: No - Musculoskeletal/Rheumatological Hx Musculoskeletal Disorders: Yes (BILATERAL KNEE SX) - Gastrointestinal Hx Gastrointestinal Disorders: Yes (APPENDECTOMY) - Genitourinary/Gynecological Hx Genitourinary Disorders: Yes (URINARY RETENTION) Hx Prostate Problems: Yes - Psychiatric Hx Psychophysiologic Disorder: No Hx Substance Use: No - Surgical History Hx Appendectomy: Yes Hx Cardiac Catheterization: Yes (cabg x1) Hx Coronary Stent: Yes (X4) Hx Orthopedic Surgery: Yes (both knee) - Anesthesia Hx Anesthesia: Yes Hx Anesthesia Reactions: No Hx Malignant Hyperthermia: No - Suicidal Assessment Feels Threatened In Home Enviroment: No Family/Social History - Physician Review Nursing Documentation Reviewed: Yes Family/Social History: Unknown Family HX Smoking Status: Heavy Smoker > 10 Cigarettes Daily Hx Alcohol Use: Yes (WINE DAILY WITH MEALS H/O) Hx Substance Use: No Hx Substance Use Treatment: No Allergies/Home Meds Allergies/Adverse Reactions: Allergies No Known Allergies Allergy (Verified 07/30/17 17:48) Home Medications: Home Meds Medication Instructions Recorded Confirmed Aspirin [Ecotrin] 81 mg PO DAILY 12/11/15 07/30/17 Clopidogrel [Plavix] 75 mg PO DAILY 12/11/15 07/30/17 Metoprolol Tartrate 50 mg PO BID 12/11/15 07/30/17 Ramipril [Altace] 1.25 mg PO DAILY 12/11/15 07/30/17 Atorvastatin [Lipitor] 40 mg PO DAILY 07/19/16 07/30/17 Ezetimibe [Zetia] 10 mg PO DAILY 12/03/16 07/30/17 oxyCODONE/Acetaminophen [Percocet 1 tab PO PRN 07/31/17 5/325 mg Tab] Review of Systems - Review of Systems Constitutional: Normal Eyes: Normal ENT: Normal Respiratory: Normal Cardiovascular: Normal Gastrointestinal: Normal Genitourinary Male: Normal, Urinary Output Changes Musculoskeletal: Normal Skin: Normal Neurological: Normal Endocrine: Normal Hemo/Lymphatic: Normal Psychiatric: Normal Physical Exam Vital Signs Reviewed: Yes Temperature: Afebrile Blood Pressure: Normal Pulse: Regular Respiratory Rate: Normal Appearance: Positive for: Well-Appearing, Non-Toxic, Comfortable Pain Distress: None Mental Status: Positive for: Alert and Oriented X 3 - Systems Exam Head: Present: Atraumatic, Normocephalic Pupils: Present: PERRL Extroacular Muscles: Present: EOMI Conjunctiva: Present: Normal Mouth: Present: Moist Mucous Membranes Neck: Present: Normal Range of Motion Respiratory/Chest: Present: Clear to Auscultation, Good Air Exchange. No: Respiratory Distress, Accessory Muscle Use Cardiovascular: Present: Regular Rate and Rhythm, Normal S1, S2. No: Murmurs Abdomen: Present: Normal Bowel Sounds. No: Tenderness, Distention, Peritoneal Signs Genitourinary Male: Present: Normal External Genitalia, Circumcised Penis, Other (guzman catheter and bag in place; meatus opening clean and nonerythematous ) Back: Present: Normal Inspection Upper Extremity: Present: Normal Inspection. No: Cyanosis, Edema Lower Extremity: Present: Normal Inspection. No: Edema Neurological: Present: GCS=15, CN II-XII Intact, Speech Normal Skin: Present: Warm, Dry, Normal Color. No: Rashes Psychiatric: Present: Alert, Oriented x 3, Normal Insight, Normal Concentration Vital Signs Temp Pulse Resp BP Pulse Ox 07/30/17 21:00 86 20 126/90 98 07/30/17 17:50 97.9 F 71 17 130/77 94 L Medical Decision Making - Lab Interpretations I have reviewed the lab results: Yes ED Course and Treatment: 07/30/17 20:52 Patient seen by PA and then evaluated by me. Patient has had multiple episodes of urinary retention and now has developed uti from guzman catheter and is antibiotics. Patient is on anticoagulants and needs cardiac clearance for procedure. Dr. Rebolledo, urologist, is recommending prostate scraping as patient has already developed infection on catheter and has failed outpatient mgmt. (Zohreh Cardenas) 07/30/17 19:16 Impression Pt is a 66 year old male who presents to the Emergency department complaining of urinary issues with a PmH of BPH, urinary retention, hypertension, and hyperlipidemia, CAD with a stent. Presents on advice from Dr. Agustin Rebolledo for admission for workup and prostate procedure due to chronic urnary retention issues for weeks On exam, benign findings and good urine output into Guzman bag; Plan Labs and imaging for admission, ECG Case discussed with Hospitalist; pt to be admitted to med/surg for failed outpatient therapy and chronic urinary retention; complicated UTI Progress Note Discussed plans with pt and awaiting admission Pt stable and medically cleared to transfer to floor 07/31/17 12:55 (Angelika Bhatia) - Medication Orders Current Medication Orders: Alprazolam (Xanax) 1 mg PO HS PRN; Protocol PRN Reason: Anxiety Last Admin: 07/31/17 00:04 Dose: 1 mg Behavioural Document 07/31/17 00:04 BR (Rec: 07/31/17 00:04 BR [id number]) Maintenance Maintenance Dose No Nonmedicinal Nonmedicinal Interventions Therapeutic Communication Behavior Behavior for Medication: Anxiety Re-Assess: Reassess Psych Meds Document 07/31/17 01:04 BR (Rec: 07/31/17 06:10 BR [id number]) Reassess Psych Med Effective Atorvastatin Calcium (Lipitor) 40 mg PO DAILY [facility] Last Admin: 07/31/17 09:54 Dose: 40 mg Ezetimibe (Zetia) 10 mg PO DAILY [facility] Last Admin: 07/31/17 09:54 Dose: 10 mg Ceftriaxone Sodium (Rocephin 1 Gram Ivpb) 1 gm in 100 mls @ 100 mls/hr IVPB DAILY [facility] PRN Reason: Protocol Last Admin: 07/31/17 09:54 Dose: 100 mls/hr eMAR Start Stop Document 07/31/17 09:54 MCV (Rec: 07/31/17 09:54 MCV [id number]) Intravenous Solution Start Date 07/31/17 Start Time 09:54 End Date 07/31/17 End time 10:54 Total Infusion Time 60 Metoprolol Tartrate (Lopressor) 50 mg PO BID [facility] Last Admin: 07/31/17 09:54 Dose: 50 mg MAR Pulse and Blood Pressure Document 07/31/17 09:54 MCV (Rec: 07/31/17 09:54 MCV [id number]) Pulse Pulse Rate (60-90) 65 Blood Pressure Blood Pressure (100/60-150/90) 102/56 Nicotine (Nicoderm Cq) 1 patch TD DAILY [facility] Oxycodone/Acetaminophen (Percocet 5/325 Mg Tab) 1 tab PO Q6H PRN PRN Reason: Pain, severe (8-10) Stop: 08/03/17 05:42 Ramipril (Altace) 1.25 mg PO DAILY [facility] Last Admin: 07/31/17 09:55 Dose: 1.25 mg MAR Blood Pressure Document 07/31/17 09:55 MCV (Rec: 07/31/17 09:55 MCV [id number]) Blood Pressure Blood Pressure (100/60-150/90) 102/56 Tamsulosin HCl (Flomax) 0.4 mg PO DAILY [facility] Last Admin: 07/31/17 09:54 Dose: 0.4 mg Discontinued Medications Nicotine (Nicoderm Cq) 1 patch TD ONCE ONE Stop: 07/30/17 23:47 Last Admin: 07/31/17 00:04 Dose: 1 patch Oxycodone/Acetaminophen (Percocet 5/325 Mg Tab) 1 tab PO ONCE ONE Stop: 07/31/17 02:52 Last Admin: 07/31/17 03:34 Dose: 1 tab [facility] Pain Assessment Document 07/31/17 03:34 BR (Rec: 07/31/17 03:34 [id number] Pain Reassessment Is this a pain reassessment? No Sleep Is patient sleeping during reassessment? No Presence of Pain Presence of Pain Yes Description Description Constant Intensity of Pain at present 10 Re-Assess: [facility] Pain Assessment Document 07/31/17 04:34 BR (Rec: 07/31/17 06:09 [id number] Pain Reassessment Is this a pain reassessment? Yes Sleep Is patient sleeping during reassessment? Yes Disposition/Present on Arrival - Present on Arrival Any Indicators Present on Arrival: Yes History of DVT/PE: No History of Uncontrolled Diabetes: No Urinary Catheter: No History of Decub. Ulcer: No History Surgical Site Infection Following: None - Disposition Have Diagnosis and Disposition been Completed?: Yes Disposition Time: 20:15 Patient Plan: Admission - Disposition Diagnosis: Complicated urinary tract infection Disposition: HOSPITALIZED Patient Problems: Current Active Problems Problem Status Onset Complicated urinary tract infection Acute Condition: STABLE
[2017-07-30 19:15] LABS: ALB/GLOB RATIO 1.4 (1.1-1.8); ALBUMIN 3.6 g/dL (3.0-4.8); ALT/SGPT 30 U/L (7-56); AST/SGOT 32 U/L (17-59); BLOOD UREA NITROGEN 17 mg/dL (7-21); GFR AFRICAN-AMERICAN > 60; GFR NON-AFRICAN AMERICAN > 60
[2017-07-30 22:53] LABS: URINE BILIRUBIN NEGATIVE (NEGATIVE); URINE BLOOD LARGE (NEGATIVE); URINE GLUCOSE (UA) NEGATIVE (NEGATIVE); URINE LEUKOCYTE ESTERASE SMALL Leu/uL (NEGATIVE); URINE PROTEIN 100 mg/dL (<30 mg/dL); URINE UROBILINOGEN 0.2 E.U./dL (<1 E.U./dL)
[2017-07-30 22:55] LABS: URINE APPEARANCE SL CLOUDY (CLEAR); URINE COLOR RED (YELLOW)
[2017-07-30 23:02] LABS: URINE RBC TNTC /hpf (0-2)
--- NOTE | 2017-07-31 01:06 | HP ---
HISTORY OF PRESENT ILLNESS: The patient is 66 years old who was referred by Dr. Rebolledo for admission and further management. The patient recently having some urinary symptoms and he has been having urinary retention, so he was referred by Dr. Rebolledo for further management. He has been having recent UTI because of BPH, so plan was to have transurethral resection done; however, he is on anticoagulant, need to be bridge covered for anticoagulation. We will hold Plavix and aspirin. PAST MEDICAL HISTORY: He has significant past medical history of, 1. Hypertension. 2. Coronary artery disease, status post recent angioplasty. 3. The patient also has been having urinary retention and he has multiple ER admissions for that. 4. The patient also has past medical history of hyperlipidemia, history of anxiety disorder. ALLERGIES: HE IS NOT ALLERGIC TO ANY MEDICATION. MEDICATION AT HOME: He is on aspirin 81 daily, Altace 1.25 daily, metoprolol 50 mg twice a day, Plavix 75 daily, Lipitor 40 mg daily. PAST SURGICAL HISTORY: Significant for cardiac cath done initially in 12/2015 and then in 02/2017. SOCIAL HISTORY: He is active smoker and socially drinks. He also is and lives with his . REVIEW OF SYSTEMS: Significant for intermittent urinary retention. PHYSICAL EXAMINATION: GENERAL: He is awake, alert, oriented, communicative. VITAL SIGNS: He is afebrile, pulse 71, respirations 17, blood pressure 130/70. LUNGS: Bilateral good airflow. No rhonchi or crackle. HEART: S1 and S2 audible. ABDOMEN: Soft. Nontender. No rebound. No guarding. NEUROLOGIC: He is awake, alert, oriented, communicative. LABORATORY EXAM: WBC 7.5, hemoglobin 13, hematocrit 39, platelet 247. Chemistry: Sodium 142, potassium 4.4, chloride 104, CO2 of 31, BUN 17, creatinine 1.0, blood sugar 126. Urine shows positive nitrites and numerous to count rbc's. ASSESSMENT: 1. Recurrent urinary tract infection. 2. Benign prostatic hypertrophy. 3. Coronary artery disease, status post angioplasty. 4. Hypertension. 5. Hyperlipidemia. PLAN: We will hold Plavix and aspirin. We will start his usual medication. Urine culture is sent, which I will shall start him on Rocephin. Cardiology consult by Dr. Deleon and Urology consult by Dr. Rebolledo has been requested. Cindy Burgess MD [facility] # [id number]
[2017-07-31] MEDS ORDERED: Oxycodone/Acetaminophen 5/325 mg Tab PO ONE (02:51)
[2017-07-31] MEDS ORDERED: Oxycodone/Acetaminophen 5/325 mg Tab PO PRN (05:41)
[2017-07-31 07:43] VITALS: BP 102/56; PULSE 65; RESP 20; TEMP 97.6; O2SAT 96
--- NOTE | 2017-07-31 09:32 | RAD ---
HISTORY: medical clearance COMPARISON: 02/24/2017 TECHNIQUE: Chest PA and lateral FINDINGS: LUNGS: No active pulmonary disease. PLEURA: No significant pleural effusion identified. No pneumothorax apparent. CARDIOVASCULAR: Normal. OSSEOUS STRUCTURES: No significant abnormalities. VISUALIZED UPPER ABDOMEN: Normal. OTHER FINDINGS: None. IMPRESSION: No active disease.
[2017-07-31] MEDS ORDERED: cefTRIAXone 1 gm 1 GM/100 ML BAG IVPB SCH (10:00)
--- NOTE | 2017-07-31 11:52 | PCM.URO ---
Urology Progress Note - Objective Lab Studies: Reviewed (plans for out pt spt) Lab Results Last 24 Hours: Laboratory Results - last 24 hr 07/30/17 07/30/17 07/30/17 18:45 18:45 22:30 WBC 7.5 RBC 4.30 Hgb 13.0 L Hct 39.2 L MCV 91.2 MCH 30.2 MCHC 33.2 RDW 14.3 Plt Count 247 MPV 9.3 Gran % 63.0 Lymph % (Auto) 23.2 Wayne % (Auto) 9.1 H Eos % (Auto) 4.0 Baso % (Auto) 0.7 Gran # 4.71 Lymph # (Auto) 1.7 Wayne # (Auto) 0.7 H Eos # (Auto) 0.3 Baso # (Auto) 0.05 Sodium 142 Potassium 4.4 Chloride 104 Carbon Dioxide 31 Anion Gap 12 BUN 17 Creatinine 1.0 Est GFR ( Amer) > 60 Est GFR (Non-Af Amer) > 60 Random Glucose 126 H Calcium 10.0 Total Bilirubin 0.2 AST 32 ALT 30 Alkaline Phosphatase 74 Total Protein 6.3 Albumin 3.6 Globulin 2.7 Albumin/Globulin Ratio 1.4 Urine Color Red Urine Appearance Sl cloudy Urine pH 7.0 Ur Specific [place] 1.020 Urine Protein 100 H Urine Glucose (UA) Negative Urine Ketones Trace H Urine Blood Large H Urine Nitrate Positive H Urine Bilirubin Negative Urine Urobilinogen 0.2 Ur Leukocyte Esterase Small H Urine RBC Tntc Urine WBC 5 - 10 Ur Epithelial Cells None Vital Signs: Vital Signs - 24 hr 07/30/17 07/31/17 07/31/17 21:00 00:04 01:05 Temperature 97.7 F Pulse Rate 86 75 75 Respiratory 20 18 Rate Blood Pressure 126/90 137/84 137/84 O2 Sat by Pulse 98 Oximetry 07/31/17 07/31/17 07/31/17 07:42 09:54 09:55 Temperature 97.6 F Pulse Rate 65 65 Respiratory 20 Rate Blood Pressure 102/56 L 102/56 L 102/56 L O2 Sat by Pulse 96 Oximetry
--- NOTE | 2017-07-31 14:58 | PN ---
DATE: SUBJECTIVE: The patient is 66 years old, seen and examined, lying in bed, seems to be comfortable, complained of having intermittent urinary discomfort, has indwelling catheter. PHYSICAL EXAMINATION: VITAL SIGNS: He is afebrile, pulse 65, respirations 20, blood pressure 102/56. LUNGS: Bilateral good airflow. No rhonchi or crackle. HEART: S1 and S2 audible. ABDOMEN: Soft, nontender. No rebound, no guarding. NEUROLOGIC: The patient is awake, alert, oriented, communicative, ambulatory. LABORATORY DATA: Urine has large blood and leukocyte esterase. ASSESSMENT: 1. Benign prostatic hypertrophy with recurrent urinary tract infection. 2. Intermittent urinary retention. 3. Hypertension. 4. Coronary artery disease. 5. Status post multiple angioplasties. PLAN: The patient is currently off of aspirin and Plavix. We will discuss with picker box operator, might hold for possible intervention. We will talk to . Cindy Burgess MD
--- NOTE | 2017-08-01 01:17 | CON ---
DATE: 07/31/2017 LOCATION: Patient in room 570, bed 2. REASON FOR CONSULTATION: Repeated urinary retention; enlarged prostate; repeated Woods catheter insertion and removals; history of coronary artery disease; CABG, multiple stents insertion, last stent was put in SVG to RCA on 02/24/2017. HISTORY OF PRESENT ILLNESS: The patient is a 66-year-old male, known case of coronary artery disease, multiple stents insertion, also has CABG, whose recent stent was put into SVG to RCA on 02/24/2017. He is admitted to the hospital because he is having multiple episodes of urinary retention due to enlarged prostate and multiple time he has Woods catheter put in, but then the Owods catheter, he feels pain and he removes it himself and then he comes again with attention to the emergency room; so, he has very frequent visits to the emergency room and insertion of Woods catheter and removing of Woods catheter. Denies any chest pain, shortness of breath, or palpitations. PAST MEDICAL HISTORY: Significant for coronary artery bypass surgery in year 1999, status post PTCA of SVG to RCA in 2012, also had another PTCA on 12/13/2015 with PTCA of RCA of ostium and proximal to mid RCA with drug-eluting stent. At that time, OSEI was found to be patent, but there was high grade stenosis in the RCA. Then the patient came with chest pain again in 02/2017 and again had cardiac catheterization, which was done through the radial artery catheterization was done and it showed right side dominant. Left main artery is a large caliber vessel. Distal left main has 30% stenosis, trifurcated LAD, circumflex and ramus intermedius. LAD is proximally occluded. Circumflex is proximally occluded. Ramus intermedius is a moderate caliber vessel, essentially free of significant disease. Right coronary is a medium caliber dominant artery 100% occluded proximally. LV gram showed ejection fraction 45% to 50% with apical hypokinesis, end diastolic pressure was 40 mmHg. as follows: 1. OSEI is patent to LAD. Saphenous vein graft to RCA is patent, proximal 2 patent stents are also noted in the graft. Distal to the stent, 90% stenosis is noted. In view of above, the PTCA of SVG to RCA was contemplated and drug-eluting stent was inserted in the SVG to RCA. PERSONAL HISTORY: The patient is still active tobacco abuse. He used to drink heavy, now he says that he use socially. MEDICATIONS: At home, ramipril 1.25 p.o. daily, Metoprolol Tartrate 50 b.i.d., Zetia 10 mg daily, Plavix 75 daily, Lipitor 40 daily, aspirin 81 mg daily, Flomax 0.4 daily, Percocet p.r.n. ALLERGIES: THE PATIENT DENIES ANY ALLERGIES. FAMILY HISTORY: Not significant. PHYSICAL EXAMINATION VITAL SIGNS: Blood pressure 102/56, respirations 20, pulse 65, temperature 97.6. HEENT: Head is normocephalic. Eyes: Pupils are normal. Conjunctivae normal. Nose and throat: Normal. NECK: JVP low. Carotids equal. THORAX: AP diameter normal. LUNGS: Clear. CARDIOVASCULAR: S1, S2. ABDOMEN: Soft. No tenderness. No organomegaly. Bowel sounds normal. EXTREMITIES: No clubbing. No cyanosis. LABORATORY DATA: WBC 7.5, hemoglobin 13.0, hematocrit 39.2, platelet 247. Sodium 142, potassium 4.4, BUN 17, creatinine 1.0, random glucose 126. AST and ALT normal. Total protein and albumin normal. EKG showed regular sinus rhythm with ST-T changes in one and aVF. Heart rate is 59 per minute. Lungs with no active pulmonary disease. Cardiovascular, normal. DIAGNOSES: Recurrent urinary retention, recurrent Woods insertion, recurrent removal of the Woods catheter, coronary artery disease, history of coronary artery bypass graft, history of multiple stents, history of stent in 02/2017 in saphenous vein graft to right coronary artery, tobacco abuse. PLAN: The patient states that he cannot tolerate the Woods catheter and he wants to have surgery and for surgery, the patient is on Plavix because of stent and the patient was explained the risks of stopping Plavix and having surgery and the risk of stent . He was recommended to wait a few months for the surgery and stay with catheter with the bag, but he does not want that. He understands all the possible complications; so, right now, the patient's Plavix is on hold today. Today is 07/31/2017, the patient states that Dr. Rebolledo, urologist plans to do surgery on 08/03, which is Thursday. In the meantime, the patient will continue all his other medications, which we described above, which was taking at home and if he gets any chest pain or anything, he was advised to come to the emergency room immediately. The patient understands all the risks for stopping Plavix. Otherwise, from cardiac point of view, he is at moderate risk for surgery as the surgery is concerned, but the risk for stopping the Plavix is different risk for him. We will follow. Annalisa Deleon MD
--- NOTE | 2017-08-01 09:51 | CARD ---
APPROVED REPORT EKG Measurement Heart [id number] <Conclusion> Sinus bradycardia LAD STTW changes c/w ischemia No change except the rate is faster.
== END 2017-07-31 13:43 | disposition home or self-care (01) ==
LOC: ED 17:29 → ERH 18:31 → 5RSO 22:56
PROVIDERS: ADMIT Internal Medicine; ATTEND Internal Medicine
DX: N39.0 Urinary tract infection, site not specified (principal); N40.1 Benign prostatic hyperplasia with lower urinary tract symptoms; R33.8 Other retention of urine; I25.10 Atherosclerotic heart disease of native coronary artery without angina pectoris; I10 Essential (primary) hypertension; E78.5 Hyperlipidemia, unspecified; F41.9 Anxiety disorder, unspecified; F17.210 Nicotine dependence, cigarettes, uncomplicated; Z87.440 Personal history of urinary (tract) infections; Z95.1 Presence of aortocoronary bypass graft; Z95.5 Presence of coronary angioplasty implant and graft; Z79.02 Long term (current) use of antithrombotics/antiplatelets; Z79.82 Long term (current) use of aspirin
CPT/HCPCS: 71046; 80053; 81001; 85025; 87086; 93005; 96365; 99285; G0378; J0696

== ENCOUNTER 2017-08-03 11:06 | Day surgery (SDC) | payer MEDICARE ==
[2017-08-03] MEDS ORDERED: Oxycodone/Acetaminophen 5/325 mg Tab PO PRN (14:50)
[2017-08-03] MEDS ORDERED: Propofol 10 mg/ml Inj (20 ML) ONE (14:52)
[2017-08-03] MEDS ORDERED: Lidocaine 1% Inj (20ml) ONE (14:53)
[2017-08-03] MEDS ORDERED: Bupivacaine 0.5% Inj(30mL) ONE (14:56)
[2017-08-03] MEDS ORDERED: cefTRIAXone (Rocephin) 1 gm Inj ONE (15:03)
[2017-08-03] MEDS: Iohexol 240 (50 ml) ONE ×2 (15:04→15:17)
[2017-08-03] MEDS ORDERED: HYDROmorphone 0.5 mg/0.5 ml ISec IVP PRN (15:28)
[2017-08-03] MEDS ORDERED: Lactated Ringer's 1,000 ML IV SCH (15:30)
[2017-08-03 15:51] VITALS: O2SAT 99
[2017-08-03 17:44] VITALS: RESP 20
[2017-08-03 18:38] VITALS: BP 122/82; PULSE 70; TEMP 98
--- NOTE | 2017-08-03 18:48 | RAD ---
PROCEDURE: Less than 1 hr fluoroscopic time utilized during performance of the procedure. HISTORY: SUPRAPUBIC CATHETER INSERTION COMPARISON: None TECHNIQUE: Standard protocol for this study/examination. FINDINGS: Total fluoroscopic time (continuous mode) utilized during the procedure: 1.6 seconds. . IMPRESSION: Submitted images from the current procedure: 4.0.
--- NOTE | 2017-08-23 22:43 | OP ---
PROCEDURE DATE: 08/03/2017 PREOPERATIVE DIAGNOSES: Urinary retention, voiding dysfunction, gross hematuria. POSTOPERATIVE DIAGNOSES: Urinary retention, voiding dysfunction, gross hematuria PROCEDURE: Insertion of a cystostomy tube, punch cystotomy, cystogram, and insertion of a new Woods catheter. COMPLICATIONS: There were no complications. ESTIMATED BLOOD LOSS: Less than 10 mL. FINDINGS: We were able to distend his bladder and insert a new cystostomy at the termination of the procedure. There was no extravasation. The cystostomy tube looked in good location and is draining well. . INDICATIONS: See history and physical for the details. A very pleasant gentleman here for the above procedure. We discussed the options, risks, benefits and treatment alternatives; and he is now here. DESCRIPTION OF PROCEDURE: After obtaining informed consent, the patient was placed on the table. Routine monitor was placed. Time-out was called to confirm the patient. We kept him in the supine position. There were no . We then proceeded in the following fashion. We prepped the patient in sterile fashion and we over-distended his bladder. Time-out was called to confirm the patient. Antibiotic prophylaxis. We over-distended the bladder with probably about 700 mL in the bladder. We elevated the bag, the irrigation. All this was done under sterile technique. We then lined up about two fingerbreadths above the pubic bone in the suprapubic region. We used a finder needle, spinal needle. It showed clear yellow urine. We made a small incision using a knife. In addition to that, we also provided lidocaine for postop analgesia. At this point, we did a punch cystotomy. We used a Bard insertion kit. We got clear yellow urine. We secured it in place. We did cystogram, we confirmed our positioning, etc. It drains well both above and below. When we clamped the Woods, it drains well into the cystostomy tube. It was a small catheter most of it drained out the Woods. The patient tolerated the procedure without complication. ADDENDUM: We are planning PVP GreenLight laser as soon as the medical doctor will allow us to stop the Plavix. We are otherwise planning to monitor the patient closely. We would like to remove the Woods catheter once the urine stays clear, and then we will do soft dilation. It all depends on the patient's clinical course. Further plans will follow. Levon Rebolledo MD
--- NOTE | 2017-08-24 09:20 | HP ---
REASON FOR ADMISSION: Insertion of a cystoscopy tube. HISTORY OF PRESENT ILLNESS: Jovan Lomeli is a very pleasant gentleman, who is now being admitted for insertion of a cystostomy tube. I first met the patient with voiding dysfunction,urinary retention and at that time we managed him medically. More recently, he presented then again with urinary retention. We discussed options. We will give him voiding trials. We even tried a microwave thermal therapy, this did not work. I had explained to the patient at that time about a 50% failure rate particularly in this particular patient setting where he has a very relatively large prostate, about 4050 g prostate. However, the patient is really enthusiastic, did not have any surgical procedures even including now. 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 We are doing today's procedure of insertion of cystostomy tube with the patient on Plavix. We discussed with the patient the risks, benefits and treatment alternatives. See the plan listed below but we plan to proceed. PAST MEDICAL AND SURGICAL HISTORY: As listed on the chart. His business communications instructor is . REVIEW OF SYSTEMS: As listed above, noncontributory. No weight loss, chest pain. SOCIAL HISTORY: He is . He also comes to the office with his daughter. There are some social issues going on in terms of care for the patient and he is very busy with caring for his daughter. There is some family concerns. We have had long discussion with both the family, the daughter, the and with the patient regarding this. After resolving all these as best as we can discussing options, patient is now being admitted for cystostomy tube insertion. MEDICATIONS: See chart. ALLERGIES: NONE. PHYSICAL EXAMINATION: GENERAL: A well-nourished male, in no apparent distress. VITAL SIGNS: Within normal limits and listed in the chart. LUNGS: Clear. HEART: Normal S1, S2. ABDOMEN: Overall soft. The Woods catheter via the penis is within normal limits. Draining clear yellow urine. The testicles is within normal limits. RECTAL: Reveals 3040 g prostate, soft and smooth. LABORATORY DATA: The patient has multiple imaging. He has an elevated PSA. DIAGNOSES: 1. Elevated prostate-specific antigen. 2. Voiding dysfunction. 3. Urinary retention. 4. Gross hematuria. ASSESSMENT AND PLAN: At this point, we discussed options. It is not really an option at this point to do a prostate ultrasound and biopsy. We did discuss this with the patient. There is no evidence of bladder malignancy. The PSA may be all related to his urinary retention, recurrent bouts. I discussed with him living with a Woods catheter. He is very unhappy. He requested and we took out and we just listened to his request. We must remove the catheter maybe 5 times at this point and each time he fails. I did discuss with him and I offered to spent the time. I did even show him in the office how to insert a catheter himself. I explained to him this is called clean intermittent catheterization. I spent a tremendously long time reviewing this with him. He says he cannot possibly learn it and he is not going to have anybody else do it and the catheter bothers him tremendously. At this point, because he is not able to stop his anticoagulation and we cannot therefore do a GreenLight laser, we are going to plan to take the risk of inserting a cystostomy tube with the patient on Plavix. I explained it will be a small 12-Al[place]ian catheter, and once we do this, we will watch him and as soon as we can stop the medication as soon as business communications instructor gives us the green light, we are going to plan for a PVP GreenLight laser therapy. In the meantime, I told the patient to give more time, maybe the microwave thermal therapy will work and then further plans will follow. PLAN: So the plan is as follows 1. Antibiotic prophylaxis. 2. Not stopping Plavix. 3. I am going to bring the patient to the OR, place him on the table. We are going to do a cystotomy tube on Plavix. 4. We are going to keep both Foleys in temporarily, so definitely a proper drainage and then further plans will follow. . ADDENDUM: Procedure, see the operative note. Procedure went well. See the operative note, patient did well and then subsequently was being discharged home. Levon Rebolledo MD [facility] # [id number]
--- NOTE | 2017-08-24 09:21 | PN ---
PROCEDURE DATE: 08/03/2017 IMMEDIATE POSTOPERATIVE NOTE PREOPERATIVE DIAGNOSES: Urinary retention, gross hematuria, and voiding dysfunction. POSTOPERATIVE DIAGNOSES: Urinary retention, gross hematuria, and voiding dysfunction. PROCEDURES: Insertion of cystostomies and cystogram. SURGEON: Dr. Raeann Rebolledo. COMPLICATIONS: There were no complications. Patient is in the recovery room. Vital signs are within normal limits. I explained all the findings to the patient, and the plan will be for outpatient management. Levon Rebolledo MD
== END 2017-08-03 18:30 | disposition home or self-care (01) ==
LOC: SDS 11:06
PROVIDERS: ATTEND Urology
DX: R33.9 Retention of urine, unspecified (principal); R31.0 Gross hematuria; R97.20 Elevated prostate specific antigen [PSA]
CPT/HCPCS: 51102; 74430; J0696; J1170; J2704; J7120 ×2; Q9966

== ENCOUNTER 2017-08-04 18:41 | Emergency (ER) | payer MEDICARE ==
[2017-08-04 18:43] VITALS: BMI 28.3
[2017-08-04 19:05] VITALS: BP 146/80; PULSE 75; RESP 16; TEMP 98.2; O2SAT 96
--- NOTE | 2017-08-04 19:59 | ED PDOC ---
Arrival/HPI - General Chief Complaint: Male Genitourinary Time Seen by Provider: 08/04/17 19:02 Historian: Patient - History of Present Illness Narrative History of Present Illness (Text): 08/04/17 19:58 A 66 year old male presents to the emergency department for evaluation. Patient reports he had a suprapubic catheter placed yesterday which has not been draining. Patient noted blood in bag and states he believes it may be clogged. Patient has a well draining guzman catheter due to be removed in a few days. Patient denies any fever, chills, nausea, vomiting, abdominal pain, chest pain, shortness of breath or any other complaints. Urologist: Dr. Rebolledo Time/Duration: Other (today) Symptom Course: Unchanged Context: Home Past Medical History - Provider Review Nursing Documentation Reviewed: Yes - Past History Past History: Non-Contributing - Infectious Disease Hx of Infectious Diseases: None - Tetanus Immunization Tetanus Immunization: Unknown - Cardiac Hx Pacemaker: No - Pulmonary Hx Respiratory Disorders: Yes (SMOKES 1.5 PPD NOW. USED TO SMOKE 3 PPD) - Neurological Hx Paralysis: No - HEENT Hx HEENT Disorder: Yes (ringing in the ears) - Renal Hx Renal Disorder: No - Endocrine/Metabolic Hx Endocrine Disorders: No - Hematological/Oncological Hx Blood Transfusions: No Hx Blood Transfusion Reaction: No - Integumentary Hx Dermatological Disorder: No - Musculoskeletal/Rheumatological Hx Musculoskeletal Disorders: Yes (BILATERAL KNEE SX) - Gastrointestinal Hx Gastrointestinal Disorders: Yes (APPENDECTOMY) - Genitourinary/Gynecological Hx Genitourinary Disorders: Yes (URINARY RETENTION) Hx Prostate Problems: Yes - Psychiatric Hx Emotional Abuse: No Hx Physical Abuse: No Hx Substance Use: No - Surgical History Hx Appendectomy: Yes Hx Cardiac Catheterization: Yes (cabg x1) Hx Coronary Stent: Yes (X4) Hx Orthopedic Surgery: Yes (both knee) - Anesthesia Hx Anesthesia Reactions: No Hx Malignant Hyperthermia: No - Suicidal Assessment Feels Threatened In Home Enviroment: No Family/Social History - Physician Review Nursing Documentation Reviewed: Yes Family/Social History: No Known Family HX Smoking Status: Heavy Smoker > 10 Cigarettes Daily Hx Alcohol Use: Yes (WINE DAILY WITH MEALS H/O) Hx Substance Use: No Hx Substance Use Treatment: No Allergies/Home Meds Allergies/Adverse Reactions: Allergies No Known Allergies Allergy (Verified 07/30/17 17:48) Home Medications: Home Meds Medication Instructions Recorded Confirmed Aspirin [Ecotrin] 81 mg PO DAILY 12/11/15 08/04/17 Clopidogrel [Plavix] 75 mg PO DAILY 12/11/15 08/04/17 Metoprolol Tartrate 50 mg PO BID 12/11/15 08/04/17 Ramipril [Altace] 1.25 mg PO DAILY 12/11/15 08/04/17 Atorvastatin [Lipitor] 40 mg PO DAILY 07/19/16 08/04/17 Ezetimibe [Zetia] 10 mg PO DAILY 12/03/16 08/04/17 oxyCODONE/Acetaminophen [Percocet 1 tab PO Q12 08/04/17 08/04/17 5/325 mg Tab] Review of Systems - Physician Review All systems were reviewed & negative as marked: Yes - Review of Systems Constitutional: absent: Fevers, Night Sweats Respiratory: absent: SOB Cardiovascular: absent: Chest Pain Gastrointestinal: absent: Abdominal Pain, Nausea, Vomiting Genitourinary Male: Other (suprapubic catheter not draining, blood noted) Physical Exam Vital Signs Reviewed: Yes Vital Signs Temp Pulse Resp BP Pulse Ox 08/04/17 18:43 98.2 F 75 16 146/80 96 Temperature: Afebrile Blood Pressure: Normal Pulse: Regular Respiratory Rate: Normal Appearance: Positive for: Well-Appearing, Non-Toxic, Comfortable Pain Distress: None Mental Status: Positive for: Alert and Oriented X 3 - Systems Exam Head: Present: Atraumatic, Normocephalic Pupils: Present: PERRL Extroacular Muscles: Present: EOMI Conjunctiva: Present: Normal Mouth: Present: Moist Mucous Membranes Respiratory/Chest: Present: Clear to Auscultation, Good Air Exchange. No: Respiratory Distress, Accessory Muscle Use Cardiovascular: Present: Regular Rate and Rhythm, Normal S1, S2. No: Murmurs Abdomen: Present: Normal Bowel Sounds, Other (Suprapubic catheter with red tinged urine). No: Tenderness, Distention, Peritoneal Signs Genitourinary Male: Present: Circumcised Penis (with guzman in place). No: Testicle Tenderness Upper Extremity: Present: Normal Inspection. No: Cyanosis, Edema Lower Extremity: Present: Normal Inspection. No: Edema Neurological: Present: GCS=15, CN II-XII Intact, Speech Normal Skin: Present: Warm, Dry, Normal Color. No: Rashes Psychiatric: Present: Alert, Oriented x 3, Normal Insight, Normal Concentration Medical Decision Making ED Course and Treatment: 08/04/17 19:58 Impression: A 66 year old male with suprapubic catheter placed yesterday and not draining since Progress Notes: Suprapubic catheter flushed and now draining. Plan is to discharge patient home. Patient aware of and in agreement with plan. - Scribe Statement The provider has reviewed the documentation as recorded by the Scribe Rachelle Roman Provider Scribe Attestation: All medical record entries made by the Scribe were at my direction and personally dictated by me. I have reviewed the chart and agree that the record accurately reflects my personal performance of the history, physical exam, medical decision making, and the department course for this patient. I have also personally directed, reviewed, and agree with the discharge instructions and disposition. Disposition/Present on Arrival - Present on Arrival Any Indicators Present on Arrival: No History of DVT/PE: No History of Uncontrolled Diabetes: No Urinary Catheter: No History of Decub. Ulcer: No History Surgical Site Infection Following: None - Disposition Have Diagnosis and Disposition been Completed?: Yes Diagnosis: Obstructed Guzman catheter Disposition: HOME/ ROUTINE Disposition Time: 19:59 Patient Plan: Discharge Patient Problems: Current Active Problems Problem Status Onset Obstructed Guzman catheter Acute Condition: GOOD Additional Instructions: Follow-up with PMD within 2 days. Follow-up with Dr. Rebolledo. Return to ED if condition worsens. Referrals: Cindy Burgess MD [Primary Care Provider] - Follow up with primary Forms: [employer] ([place])
== END 2017-08-04 20:20 | disposition home or self-care (01) ==
LOC: ED 18:41
DX: T83.091A Other mechanical complication of indwelling urethral catheter, initial encounter (principal); F17.210 Nicotine dependence, cigarettes, uncomplicated

== ENCOUNTER 2017-08-24 12:11 | Observation (INO) | payer MEDICARE ==
[2017-08-20 10:14] VITALS: BMI 23.3
[2017-08-24] MEDS ORDERED: Lidocaine 2% Jelly (Uro-Jet) ONE (14:28)
[2017-08-24] MEDS ORDERED: cefTRIAXone (Rocephin) 1 gm Inj ONE (14:28)
[2017-08-24] MEDS ORDERED: HYDROmorphone 0.5 mg/0.5 ml ISec IVP PRN (15:00)
[2017-08-24] MEDS ORDERED: Lactated Ringer's 1,000 ML IV SCH (15:00)
[2017-08-24] MEDS ORDERED: Midazolam 2 MG/2 ML VIAL ONE (15:56)
[2017-08-24] MEDS ORDERED: Propofol 10 mg/ml Inj (20 ML) ONE (15:56)
[2017-08-24] MEDS ORDERED: ePHEDrine 50 mg/ml Inj ONE (16:11)
[2017-08-24] MEDS ORDERED: HYDROmorphone 0.5 mg/0.5 ml ISec ONE ×2 (17:01→17:23)
[2017-08-24] MEDS ORDERED: HYDROmorphone 0.5 mg/0.5 ml ISec IVP ONE ×2 (17:02→17:25)
[2017-08-24] MEDS: Oxycodone/Acetaminophen 5/325 mg Tab PO PRN (20:07)
[2017-08-24] MEDS: Morphine 4 mg/ml ISec IM PRN (21:50)
--- NOTE | 2017-08-24 21:58 | PCM.URO ---
Urology Progress Note - Objective Lab Studies: Reviewed (retention) Intake & Output: Intake & Output 08/24/17 08/24/17 08/25/17 06:59 18:59 06:59 Intake Total 0 540 Output Total 2350 Balance 0 -1810 Intake: IV 0 Oral 540 Output: Urine 2350 Urine, Voided 2350 Other: # Bowel Movements 0 Vital Signs: Vital Signs - 24 hr 08/24/17 08/24/17 08/24/17 12:45 16:50 17:05 Temperature 97.6 F 97.8 F Pulse Rate 63 78 78 Respiratory 20 12 17 Rate Blood Pressure 116/78 144/85 148/85 O2 Sat by Pulse 95 95 98 Oximetry 08/24/17 08/24/17 08/24/17 17:20 17:35 17:50 Temperature Pulse Rate 78 76 64 Respiratory 12 13 11 L Rate Blood Pressure 150/890 H 143/85 144/79 O2 Sat by Pulse 98 98 98 Oximetry 08/24/17 08/24/17 18:20 18:50 Temperature Pulse Rate 76 75 Respiratory 11 L 12 Rate Blood Pressure 138/84 134/83 O2 Sat by Pulse 95 96 Oximetry
[2017-08-25] MEDS: Morphine 4 mg/ml ISec IM PRN (01:35)
[2017-08-25 06:58] LABS: BASO # 0.03 K/mm3 (0.0-2.0); BASO % 0.2 % (0.0-3.0); EOS # 0.6 (0.0-0.7); GRAN # 12.48 (1.4-6.5); GRAN % 78.3 % (50.0-68.0); HEMOGLOBIN 13.3 g/dL (14.0-18.0); LYMPH # 1.6 (1.2-3.4); LYMPH % 9.9 % (22.0-35.0); MEAN CELL VOLUME 89.1 fl (80.0-105.0); MEAN CORPUSCULAR HEMOGLOBIN 29.6 pg (25.0-35.0); MEAN CORPUSCULAR HGB CONC 33.3 g/dl (31.0-37.0); MEAN PLATELET VOLUME 9.6 fl (7.0-11.0); MONO # 1.2 (0.1-0.6); MONO % 7.6 % (1.0-6.0); RBC 4.49 10^6/uL (3.5-6.1); RED CELL DISTRIBUTION WIDTH 14.4 % (11.5-14.5); WHITE BLOOD COUNT 15.9 10^3/ul (4.5-11.0)
[2017-08-25 07:34] LABS: ALB/GLOB RATIO 1.2 (1.1-1.8); ALBUMIN 3.5 g/dL (3.0-4.8); ALT/SGPT 32 U/L (7-56); AST/SGOT 35 U/L (17-59); BLOOD UREA NITROGEN 10 mg/dL (7-21); CALCIUM 9.4 mg/dL (8.4-10.5); GFR AFRICAN-AMERICAN > 60; GFR NON-AFRICAN AMERICAN > 60
[2017-08-25 08:03] VITALS: RESP 18
[2017-08-25] MEDS: cefTRIAXone 1 gm 1 GM/100 ML BAG IVPB SCH (09:45)
[2017-08-25] MEDS: Morphine 2 mg/2 mL syringe IM PRN ×3 (12:15→21:34)
[2017-08-26] MEDS: Morphine 2 mg/2 mL syringe IM PRN (04:31)
[2017-08-26 07:05] LABS: HEMOGLOBIN 12.9 g/dL (14.0-18.0); MEAN CELL VOLUME 87.8 fl (80.0-105.0); MEAN CORPUSCULAR HEMOGLOBIN 29.7 pg (25.0-35.0); MEAN CORPUSCULAR HGB CONC 33.8 g/dl (31.0-37.0); MEAN PLATELET VOLUME 9.6 fl (7.0-11.0); RBC 4.35 10^6/uL (3.5-6.1); RED CELL DISTRIBUTION WIDTH 14.3 % (11.5-14.5); WHITE BLOOD COUNT 13.9 10^3/ul (4.5-11.0)
[2017-08-26 07:46] LABS: BLOOD UREA NITROGEN 8 mg/dL (7-21); CALCIUM 9.2 mg/dL (8.4-10.5); GFR AFRICAN-AMERICAN > 60; GFR NON-AFRICAN AMERICAN > 60
[2017-08-26] MEDS: Oxycodone/Acetaminophen 5/325 mg Tab PO PRN (08:55)
[2017-08-26] MEDS: cefTRIAXone 1 gm 1 GM/100 ML BAG IVPB SCH (09:02)
[2017-08-26 09:10] VITALS: BP 115/69; PULSE 72
--- NOTE | 2017-08-26 09:21 | CON ---
DATE: 08/25/2017 HISTORY OF PRESENT ILLNESS: Patient is 66 years old, known to me from office practice, came to same-day procedure for photovaporization of prostate for BPH. Patient was scheduled to be sent home, but he started to have suprapubic discomfort and was found to have bleeding in his Woods catheter. He is on 3-way Woods catheter with the CBI. Denies any fever or chills. No history of nausea or vomiting. PAST MEDICAL HISTORY: Significant for; 1. Hypertension. 2. Coronary artery disease, status post multiple angioplasty and history of open heart surgery in the remote past. Last angioplasty was on 02/24/2017. 3. Hyperlipidemia. 4. Anxiety disorder. 5. Recent recurrent UTIs. ALLERGIES: HE IS NOT ALLERGIC TO ANY MEDICATION. MEDICATIONS: At home, he is on Xanax 0.25 three times a day, atorvastatin 40 mg daily, aspirin 81 daily, Flomax 0.4 daily, Altace 1.25 daily, metoprolol 50 mg twice a day, Zetia 10 mg daily, and Plavix 75 daily. SOCIAL HISTORY: He is still an active smoker and smokes more than 10 cigarettes. He used to be 2- to 3-pack smoker in the past. Socially he drinks. PHYSICAL EXAMINATION: GENERAL: He is awake, alert, oriented, and communicative. VITAL SIGNS: He is afebrile, pulse 88, respirations 18, blood pressure 110/60. LUNGS: Bilateral good airflow. No rhonchi or crackle. HEART: S1 and S2 audible. ABDOMEN: Soft and nontender. No rebound. No guarding. NEUROLOGIC: Patient is awake, alert, and communicative. LABORATORY DATA: WBC 16.9, hemoglobin 13, hematocrit 40, platelet of 194. Chemistry: Sodium 137, potassium 4.4, chloride 98, CO2 of 24, BUN 10, creatinine 0.7, blood sugar of 118. ASSESSMENT: 1. Benign prostatic hypertrophy. 2. Hypertension. 3. Hyperlipidemia. 4. Coronary artery disease. 5. Active smoker. PLAN: Currently, patient is on aspirin and Flomax. He is given gentamicin. He will be started on statin, metoprolol, analgesics as needed, started on Plavix. He was given Rocephin and follow up his CBC and CMP in a.m. Cindy Burgess MD [facility] # [id number]
[2017-08-26 09:24] VITALS: TEMP 97.7; O2SAT 94
--- NOTE | 2017-08-26 13:52 | PN ---
DATE: SUBJECTIVE: The patient is a 66-year-old who had photovaporization of prostate done yesterday followed by hematuria, had CBI, did well, had Woods catheter removed and has indwelling catheter placed. He is awake, alert, oriented, communicative, ambulatory, complained of some burning at the penile head and orifice. PHYSICAL EXAMINATION: VITAL SIGNS: He is afebrile, pulse 72, respiration 18, blood pressure 115/69. LUNGS: Bilateral good airflow. No rhonchi or crackle. HEART: S1 and S2 audible. No murmur. ABDOMEN: Soft, nontender. No rebound, no guarding. NEUROLOGIC: The patient is awake and alert, able to communicate, ambulatory. LABORATORY DATA: WBC is 13.9, hemoglobin 12.9, hematocrit 38.2, platelet of 172. Chemistry: Sodium 137, potassium 4, chloride 100, CO2 of 29, BUN 8, creatinine 0.6, blood sugar of 127. ASSESSMENT: 1. Status post photovaporization of prostate. 2. Recurrent urinary tract infection. 3. Benign prostatic hypertrophy. 4. Hypertension. 5. Coronary artery disease. 6. Active smoker. 7. Anxiety disorder. PLAN: The patient is being discharged home on laxative, Colace, and he is being discharged on Levaquin 500 daily, analgesic as needed. He will follow up with Dr. Rebolledo as outpatient. Cindy Burgess MD
--- NOTE | 2017-09-07 01:27 | PN ---
DATE: UROLOGY POSTOPERATIVE NOTE See the preoperative note and H&P. Patient is in recovery room status post a PVP GreenLight laser, for vaporization of the prostate. This went without complication. Patient is not bleeding. Urine is noted to be draining well. Patient is having routine postop pain as expected. Overall, doing well. Stable vital signs. Patient tolerated the procedure without complication. PLAN: Admission, observation, and then further plans will follow. Levon Rebolledo MD
--- NOTE | 2017-09-07 07:40 | HP ---
REASON FOR ADMISSION: PVP GreenLight laser. HISTORY OF PRESENT ILLNESS: This a very pleasant 66-year-old gentleman whom I have not seen over a while. He initially had urinary retention and then he was doing well, and then subsequently he was voiding and then he went back into retention. In the meantime though, he has had multiple medical issues, and the issue is that he has cardiac stents and he is on Plavix and we cannot really stop it. So we planned and we did an insertion of a cystostomy tube, but the patient could not tolerate a Woods via urethra. In fact, he was having great difficulty with it. So at this point, he is still very uncomfortable with any catheter and wants to do something about that. So, today he is being admitted for a PVP GreenLight laser, and in preparation for today, he has seen his access control specialist who has stopped his Plavix, and he has been off the Plavix for about a week. Apparently he , his cardiac stents were from 2016. So he is almost at the six month tati. I discussed with him that my recommendation is from what I am familiar with is that they usually wait 6 months and then we would be better off the wait. Patient is very uncomfortable with that, so he has obtained a medical and Cardiology note. He has seen Dr. Deleon and the patient has told me that he is cleared, and after discussing all the risks, specifically risk of a cardiac event from stopping the medication too early he is now here for a PVP GreenLight laser TURP. His medical doctor is Dr. Burgess, access control specialist is Dr. Deleon. On a social note, he has a lot of other concerns with his daughter, with his , apparently they are ill themselves, and they are interested in social dynamics, and he is very worried about their health, I often get phone calls from them as they are worried about his health. So after discussing all the options and risks, benefits, and treatment alternatives, at this point we are going to try to do a PVP GreenLight laser as best as possible and try to get him back on the Plavix as quickly as possible as well. REVIEW OF SYSTEMS: No weight loss, chest pain, shortness of breath. PHYSICAL EXAMINATION: GENERAL: Well nourished male, in no apparent distress. VITAL SIGNS: Within normal limits. LUNGS: Clear. HEART: Normal S1, S2. ABDOMEN: Overall soft. . GENITOURINARY: Normal male phallus without discharge. No testicular masses. RECTAL: A 30 gram prostate, soft and smooth. NEUROLOGIC: Grossly intact. DIAGNOSES: Urinary retention, voiding dysfunction, gross hematuria. LABORATORY DATA: Elevated PSA. IMPRESSION: At this point we discussed options. He has an elevated PSA, but we are not doing a biopsy. He has been in retention back and forth. It could be that he needs a biopsy for the future, but at this point, really the goal is to get the patient without the Woods as best as we can. So we are planning today for a PVP GreenLight and we are off the Plavix. We are going to see how the patient does clinically as best as we can. Again, the patient also does not want to stay in the hospital. So we are going to try our best to do this quickly and get him out of the hospital. We are going to plan for initially to have a three-way CBI with the indwelling cystostomy tube. See the previously dictated notes where we did the cystostomy tube. That went uncomplicated. We actually did that one on Plavix. But at this point, we are going to try. Patient is off the Plavix. We are going to try to get him back on the Plavix as quickly as possible relative to the surgery. So, the plan for today is as follows, 1. Antibiotic prophylaxis. 2. A PVP GreenLight laser, and then further plans will follow. Levon Rebolledo MD
--- NOTE | 2017-09-07 12:14 | OP ---
PROCEDURE DATE: 08/24/2017 UROLOGY OPERATIVE REPORT PREOPERATIVE DIAGNOSES: Elevated prostate-specific antigen, urinary retention, gross hematuria, voiding dysfunction. POSTOPERATIVE DIAGNOSES: Elevated prostate-specific antigen, urinary retention, gross hematuria, voiding dysfunction. PROCEDURE: PVP GreenLight laser, TURP. SURGEON: Levon Rebolledo MD. COMPLICATIONS: There were no complications. INDICATIONS: See history and physical for further details. In brief, a very pleasant gentleman who I met a while back where he had urinary retention; then after that, he was voiding better. Now, he was re-presented in urinary retention. Since the time we initially met him, he has had multiple other things occurring to the patient. Specifically, he has had urinary retention, he has had cardiac stents placed, this was back in 02/2017 or 03/2017. In preparation for today's procedure, he had medical clearance. He has had medical clearance and Cardiology clearance with Dr. Deleon. My recommendation is actually that he just keep the catheter in place and not push to stopping of the Plavix. We actually did a cystostomy tube with him on Plavix. And that went okay, but I would do not do a PVP GreenLight laser with patient still on Plavix. We have discussed all this at length. We discussed the risks, benefits, and treatment alternatives with the patient at length. After discussing those with the patient, he is very uncomfortable with the catheter. Even with the cystostomy tube, he is still uncomfortable, and so after discussing it, the patient is now here today for the above listed procedure. I explained the patient the risk of it not working and of course the risk of bleeding. Specifically, I am still concerned about the possibility of postop bleeding when resuming the medications. But after discussing all these different options, the patient requesting it and we are going to do it meticulously carefully and slowly. DESCRIPTION OF PROCEDURE: After obtaining informed consent, the patient was placed on the table. Routine monitors were placed. Timeout was called to confirm the patient, positioning, etc. Antibiotic prophylaxis were used. We now began the procedure in the following fashion; we identified all landmark, we identified the verumontanum. We identified the cystostomy tube, which could actually see it in place. We can see the suprapubic catheter in place, in a good location, nice and low on the bladder. We identified all landmarks. We now began the procedure in the following fashion, we started with energy of 80 guerrero. We began at the bladder neck between the 5 o'clock and 7 o'clock positions. And we worked our way between 5 and 7, and then 5 and 1, and 7 and 11. And quickly, carefully, meticulously opened up the prostate. We kept checking all landmarks. We kept controlling the bleeding. And as we did so, it went very well. We now reevaluated from the verumontanum and it is nicely opened. The patient had a good result so far. We checked for bleeding. There was no bleeding. And we completed the procedure. We inserted a Woods catheter via the urethra. We put about 50 mL. We put it on a mild traction. And we used actually the cystostomy tube for the inlet and for three way. Overall, again the patient tolerated the procedure well without complication and brought to the recovery room in stable condition. Levon Rebolledo MD
== END 2017-08-26 12:42 | disposition home or self-care (01) ==
LOC: SDS 12:11 → 5RNO 19:18 → SDS 08-25 14:35 → 5RNO 08-25 14:35
PROVIDERS: ADMIT Urology; ATTEND Urology
DX: N40.1 Benign prostatic hyperplasia with lower urinary tract symptoms (principal); R33.8 Other retention of urine; E78.5 Hyperlipidemia, unspecified; F41.9 Anxiety disorder, unspecified; I10 Essential (primary) hypertension; I25.10 Atherosclerotic heart disease of native coronary artery without angina pectoris; Z98.61 Coronary angioplasty status; N40.0 Benign prostatic hyperplasia without lower urinary tract symptoms; Z87.440 Personal history of urinary (tract) infections; F17.210 Nicotine dependence, cigarettes, uncomplicated
CPT/HCPCS: 36415; 52648; 80048; 80053; 85025; 85027; 87086; G0378; J0696; J1170; J1580; J2001; J2250; J2270; J2704; J3010; J7120

== ENCOUNTER 2017-09-04 11:33 | Observation (INO) | payer MEDICARE ==
--- NOTE | 2017-09-04 12:33 | ED PDOC ---
Arrival/HPI - General Chief Complaint: Male Genitourinary Time Seen by Provider: 09/04/17 12:14 Historian: Patient - History of Present Illness Narrative History of Present Illness (Text): 09/04/17 12:30 66 y/o male, pmh including htn/hyperlipidemia/BPH with suprapubic catheter, nkda , c/o hemturia started last night. Pt. stated that he has chronic enlarged prostate, seen by DR. Roberta Rebolledo which he has been passing clots in the urine last night with no fall or trauma, told by Dr. Rebolledo to come to the ER for evaluation. Pt. has been bleeding persistenly with gross hematuria, admits fatigue occasionally. Pt. has no fever or chills, no headache or night sweat, no rash, no numbness or tingling, no other medical or psychological complaints. Past Medical History - Provider Review Nursing Documentation Reviewed: Yes - Past History Past History: Non-Contributing - Infectious Disease Hx of Infectious Diseases: None - Tetanus Immunization Tetanus Immunization: Unknown - Cardiac Hx Cardiac Disorders: Yes - Pulmonary Hx Respiratory Disorders: Yes - Neurological Hx Neurological Disorder: No - HEENT Hx HEENT Disorder: Yes Other/Comment: TINNITUS - Renal Hx Renal Disorder: No - Endocrine/Metabolic Hx Endocrine Disorders: No - Hematological/Oncological Hx Blood Disorders: No - Integumentary Hx Dermatological Disorder: No - Musculoskeletal/Rheumatological Hx Musculoskeletal Disorders: Yes (BILATERAL KNEE SX) - Gastrointestinal Hx Gastrointestinal Disorders: Yes (APPENDECTOMY) - Genitourinary/Gynecological Hx Genitourinary Disorders: Yes (URINARY RETENTION) Hx Prostate Problems: Yes Other/Comment: VELIZ - Psychiatric Hx Psychophysiologic Disorder: Yes Hx Anxiety: Yes Hx Substance Use: No - Surgical History Hx Appendectomy: Yes Hx Orthopedic Surgery: Yes Other/Comment: PROSTATE SURGERY - Anesthesia Hx Anesthesia Reactions: No Hx Malignant Hyperthermia: No - Suicidal Assessment Feels Threatened In Home Enviroment: No Family/Social History - Physician Review Nursing Documentation Reviewed: Yes Family/Social History: Unknown Family HX Smoking Status: Heavy Smoker > 10 Cigarettes Daily Hx Alcohol Use: Yes (SOCIALLY) Hx Substance Use: No Hx Substance Use Treatment: No Allergies/Home Meds Allergies/Adverse Reactions: Allergies No Known Allergies Allergy (Verified 09/04/17 11:44) Home Medications: Home Meds Medication Instructions Recorded Confirmed Aspirin [Ecotrin] 81 mg PO DAILY 12/11/15 09/04/17 Clopidogrel [Plavix] 75 mg PO DAILY 12/11/15 09/04/17 Metoprolol Tartrate 50 mg PO BID 12/11/15 09/04/17 Ramipril [Altace] 1.25 mg PO DAILY 12/11/15 09/04/17 Atorvastatin [Lipitor] 40 mg PO DAILY 07/19/16 09/04/17 Ezetimibe [Zetia] 10 mg PO DAILY 12/03/16 09/04/17 ALPRAZolam [Xanax] 0.25 mg PO TID PRN 08/25/17 09/04/17 Review of Systems - Review of Systems Constitutional: Fatigue. absent: Fevers Eyes: absent: Vision Changes ENT: absent: Hearing Changes Respiratory: absent: SOB, Cough Cardiovascular: absent: Chest Pain Gastrointestinal: absent: Abdominal Pain, Nausea, Vomiting Genitourinary Male: Hematuria. absent: Dysuria, Frequency, Urinary Output Changes Skin: absent: Rash, Pruritis Neurological: absent: Headache Psychiatric: absent: Anxiety, Depression, Suicidal Ideation Physical Exam Vital Signs Reviewed: Yes Vital Signs Temp Pulse Resp BP Pulse Ox 09/04/17 16:01 60 18 109/78 97 09/04/17 13:35 57 L 18 107/73 97 09/04/17 12:03 97.8 F 59 L 18 105/69 97 09/04/17 11:47 97.8 F 59 L 16 105/69 97 Temperature: Afebrile Blood Pressure: Normal Pulse: Bradycardic Respiratory Rate: Normal Appearance: Positive for: Well-Appearing, Non-Toxic, Comfortable Pain Distress: None Mental Status: Positive for: Alert and Oriented X 3 - Systems Exam Head: Present: Atraumatic, Normocephalic Pupils: Present: PERRL Extroacular Muscles: Present: EOMI Conjunctiva: Present: Normal Mouth: Present: Moist Mucous Membranes Neck: Present: Normal Range of Motion Respiratory/Chest: Present: Clear to Auscultation, Good Air Exchange. No: Respiratory Distress, Accessory Muscle Use Cardiovascular: Present: Regular Rate and Rhythm, Normal S1, S2. No: Murmurs Abdomen: Present: Other (visible urine catheter noted with no surrounding erythematous on the insertion site, veliz bag fill with dark bloody tinged color. ). No: Tenderness, Distention, Peritoneal Signs, Rebound, Guarding Back: Present: Normal Inspection Upper Extremity: Present: Normal Inspection. No: Cyanosis, Edema Lower Extremity: Present: Normal Inspection. No: Edema Neurological: Present: GCS=15, CN II-XII Intact, Speech Normal Skin: Present: Warm, Dry, Normal Color. No: Rashes Psychiatric: Present: Alert, Oriented x 3, Normal Insight, Normal Concentration Medical Decision Making ED Course and Treatment: 09/04/17 12:32 -labs/ua/coag panel -CT abdomen and pelvis -Will page DR. Rebolledo once lab result -Observe and reassess 09/04/17 14:55 -Labs are non-significant with hgb 13.1 from 12.9 -Coag panel within normal limit. -UA show +UTI, IV rocephine ordered. -CT abdomen and pelvis show Bladder wall thickening particularly about the base of the bladder on the left. This is inseparable from the enlarged prostate impressing upon the urinary bladder. Focal distal hydroureter on the left. Otherwise unremarkable ureters. No evidence of hydronephrosis. Additional benign and/or incidental findings described above. -I spoke to Dr. Rebolledo about the labs/radiology results, he will try to come to the ER to evaluate the patient in the ER. 09/04/17 15:21 -I spoke to Dr. Rebolledo and he is in an emergency which he can not come to the ER at this time, he's newest recommendation is to insert 18 Khmer Catheter through penis (which the possible bleeding can be from prostate origin as per Dr. Rebolledo) but keep the suprapubic catheter as well as back up. -I discussed the case with Dr. Barney and expressed my concern about gross hematuria which he has been feeling fatigue, UA show +UTI, will need admission. 09/04/17 16:01 -I spoke to DR. Burgess (PCP) about this case including labs/radiology and persistent hematuria, request to admit to her service with DR. Deleon on the routine consult as she will talk to Dr. Deleon as well about aspirin/plavix with hematuria plus Dr. Rebolledo on routine consult. -Dr. Barney evaluated the patient as well including labs/radiology result discussed, he will put in the admission. 09/04/17 17:46 -18 zambian inserted by me with one try under cleaning by the wipe and betadine under sterile procedure as requested by the urologist Dr. Rebolledo, inflate the ballon of the veliz as well, gross hematuria slowly draining with condensation inside the tube. - Lab Interpretations Lab Results: 09/04/17 13:00 09/04/17 13:00 Lab Results 09/04/17 13:10: Urine Color Red, Urine Appearance Turbid, Urine pH 7.0, Ur Specific [place] 1.015, Urine Protein >=300 H, Urine Glucose (UA) 100 H, Urine Ketones 15 H, Urine Blood Large H, Urine Nitrate Positive H, Urine Bilirubin Small H, Urine Urobilinogen 2.0 H, Ur Leukocyte Esterase Moderate H, Urine RBC Tntc, Urine WBC Negative 09/04/17 13:00: WBC 7.7 D, RBC 4.47, Hgb 13.1 L, Hct 39.2 L, MCV 87.7, MCH 29.3 , MCHC 33.4, RDW 13.8, Plt Count 249, MPV 9.0, Gran % 69.0 H, Lymph % (Auto) 15.0 L, [place] % (Auto) 9.7 H, Eos % (Auto) 5.8 H, Baso % (Auto) 0.5, Gran # 5.32 , Lymph # (Auto) 1.2, [place] # (Auto) 0.8 H, Eos # (Auto) 0.5, Baso # (Auto) 0.04 09/04/17 13:00: Sodium 143, Potassium 4.3, Chloride 104, Carbon Dioxide 28, Anion Gap 15, BUN 9, Creatinine 0.8, Est GFR ( Amer) > 60, Est GFR (Non- Af Amer) > 60, Random Glucose 95, Calcium 9.4, Magnesium 1.9, Total Bilirubin 0.4, AST 40, ALT 50, Alkaline Phosphatase 63, Total Protein 6.6, Albumin 3.9, Globulin 2.8, Albumin/Globulin Ratio 1.4 09/04/17 13:00: PT 12.0, INR 1.04, APTT 33.7 I have reviewed the lab results: Yes - RAD Interpretation Radiology Orders: 09/04/17 12:28 ABDOMEN & PELVIS [ABD & PELVIS W/O PO OR IV CONT] [CT] Stat LOWER THORAX: Unremarkable. LIVER: Unremarkable. No gross lesion or ductal dilatation. Incidental finding(s): Cyst lateral segment of the liver 2 cm. GALLBLADDER AND BILE DUCTS: Unremarkable. PANCREAS: Unremarkable. No gross lesion or ductal dilatation. SPLEEN: Unremarkable. ADRENALS: Unremarkable. No mass. KIDNEYS AND URETERS: Focal dilatation of the distal left ureter. No evidence of hydronephrosis. No renal masses identified. Tiny nonobstructing midpole calculus left kidney. VASCULATURE: Unremarkable. No aortic aneurysm. BOWEL: Constipation without fecal impaction or obstruction. APPENDIX: Unremarkable. Normal appendix. PERITONEUM: Unremarkable. No free fluid. No free air. LYMPH NODES: Unremarkable. No enlarged lymph nodes. BLADDER: Suprapubic bladder catheter identified. Focal thickening of the wall of the bladder with a catheter has standard. Bladder wall thickening identified involving the base of the bladder more extensive on the left than the right. REPRODUCTIVE: Enlarged prostate inseparable from bladder abnormality BONES: No acute fracture. OTHER FINDINGS: None. IMPRESSION: Bladder wall thickening particularly about the base of the bladder on the left. This is inseparable from the enlarged prostate impressing upon the urinary bladder. Focal distal hydroureter on the left. Otherwise unremarkable ureters. No evidence of hydronephrosis. Additional benign and/or incidental findings described above. Eligibility Services Representative: Radiologist - Medication Orders Current Medication Orders: Discontinued Medications Ceftriaxone Sodium (Rocephin 1 Gram Ivpb) 1 gm in 100 mls @ 200 mls/hr IVPB STAT STA PRN Reason: Protocol Stop: 09/04/17 14:26 Last Admin: 09/04/17 14:54 Dose: 200 mls/hr eMAR Start Stop Document 09/04/17 14:54 EQ (Rec: 09/04/17 14:55 EQ [id number]) Intravenous Solution Start Date 09/04/17 Start Time 14:55 - PA / [employer] / Resident Statement / has reviewed & agrees with the documentation as recorded. / has examined the patient and agrees with the treatment plan. Disposition/Present on Arrival - Present on Arrival Any Indicators Present on Arrival: No History of DVT/PE: No History of Uncontrolled Diabetes: No Urinary Catheter: No History of Decub. Ulcer: No History Surgical Site Infection Following: None - Disposition Have Diagnosis and Disposition been Completed?: Yes Diagnosis: UTI (urinary tract infection), Gross hematuria, Weakness Disposition: HOSPITALIZED Disposition Time: 12:33 Patient Plan: Admission, Observation Patient Problems: Current Active Problems Problem Status Onset UTI (urinary tract infection) Acute Gross hematuria Acute Weakness Acute Condition: STABLE
[2017-09-04 13:12] LABS: BASO # 0.04 K/mm3 (0.0-2.0); BASO % 0.5 % (0.0-3.0); EOS # 0.5 (0.0-0.7); EOS % 5.8 % (1.5-5.0); GRAN # 5.32 (1.4-6.5); HEMOGLOBIN 13.1 g/dL (14.0-18.0); LYMPH # 1.2 (1.2-3.4); MEAN CELL VOLUME 87.7 fl (80.0-105.0); MEAN CORPUSCULAR HEMOGLOBIN 29.3 pg (25.0-35.0); MEAN CORPUSCULAR HGB CONC 33.4 g/dl (31.0-37.0); MONO # 0.8 (0.1-0.6); MONO % 9.7 % (1.0-6.0); RBC 4.47 10^6/uL (3.5-6.1); RED CELL DISTRIBUTION WIDTH 13.8 % (11.5-14.5); WHITE BLOOD COUNT 7.7 10^3/ul (4.5-11.0)
[2017-09-04 13:21] LABS: ALB/GLOB RATIO 1.4 (1.1-1.8); ALBUMIN 3.9 g/dL (3.0-4.8); ALT/SGPT 50 U/L (7-56); AST/SGOT 40 U/L (17-59); BLOOD UREA NITROGEN 9 mg/dL (7-21); CALCIUM 9.4 mg/dL (8.4-10.5); GFR AFRICAN-AMERICAN > 60; GFR NON-AFRICAN AMERICAN > 60
[2017-09-04 13:25] LABS: INR 1.04 (0.93-1.08); PARTIAL THROMBOPLASTIN TIME 33.7 Seconds (25.1-36.5)
[2017-09-04 13:29] LABS: URINE BILIRUBIN SMALL (NEGATIVE); URINE BLOOD LARGE (NEGATIVE); URINE GLUCOSE (UA) 100 mg/dL (NEGATIVE); URINE LEUKOCYTE ESTERASE MODERATE Leu/uL (NEGATIVE); URINE PROTEIN >=300 mg/dL (<30 mg/dL)
[2017-09-04 13:32] LABS: URINE APPEARANCE TURBID (CLEAR); URINE COLOR RED (YELLOW)
[2017-09-04 13:34] LABS: URINE RBC TNTC /hpf (0-2); URINE WBC NEGATIVE /hpf (0-6)
--- NOTE | 2017-09-04 13:41 | CT ---
PROCEDURE: CT Abdomen and Pelvis without intravenous contrast HISTORY: hematuria, hydro? COMPARISON: None. TECHNIQUE: Unenhanced study. Neither oral nor intravenous contrast administered. Total exam DLP = 266.34 mGy-cm. This CT exam was performed using one or more of the following dose reduction techniques: Automated exposure control, adjustment of the mA and/or kV according to patient size, and/or use of iterative reconstruction technique. FINDINGS: LOWER THORAX: Unremarkable. LIVER: Unremarkable. No gross lesion or ductal dilatation. Incidental finding(s): Cyst lateral segment of the liver 2 cm. GALLBLADDER AND BILE DUCTS: Unremarkable. PANCREAS: Unremarkable. No gross lesion or ductal dilatation. SPLEEN: Unremarkable. ADRENALS: Unremarkable. No mass. KIDNEYS AND URETERS: Focal dilatation of the distal left ureter. No evidence of hydronephrosis. No renal masses identified. Tiny nonobstructing midpole calculus left kidney. VASCULATURE: Unremarkable. No aortic aneurysm. BOWEL: Constipation without fecal impaction or obstruction. APPENDIX: Unremarkable. Normal appendix. PERITONEUM: Unremarkable. No free fluid. No free air. LYMPH NODES: Unremarkable. No enlarged lymph nodes. BLADDER: Suprapubic bladder catheter identified. Focal thickening of the wall of the bladder with a catheter has standard. Bladder wall thickening identified involving the base of the bladder more extensive on the left than the right. REPRODUCTIVE: Enlarged prostate inseparable from bladder abnormality BONES: No acute fracture. OTHER FINDINGS: None. IMPRESSION: Bladder wall thickening particularly about the base of the bladder on the left. This is inseparable from the enlarged prostate impressing upon the urinary bladder. Focal distal hydroureter on the left. Otherwise unremarkable ureters. No evidence of hydronephrosis. Additional benign and/or incidental findings described above.
[2017-09-04] MEDS ORDERED: cefTRIAXone 1 gm 1 GM/100 ML BAG IVPB STA (13:57)
[2017-09-04] MEDS: Dextrose 5%/0.45% NS 1,000 ML IV SCH (20:03)
[2017-09-04 20:56] VITALS: BMI 26.5
[2017-09-04] MEDS: Oxycodone/Acetaminophen 10/325 mg Tab PO PRN (21:07)
[2017-09-05] MEDS: Oxycodone/Acetaminophen 10/325 mg Tab PO PRN ×3 (02:07→18:08)
--- NOTE | 2017-09-05 05:26 | HP ---
HISTORY OF PRESENT ILLNESS: The patient is 66 years old who recently had photovaporization of the prostate, was sent home on indwelling catheter. Patient said he started to have some suprapubic discomfort and had blood in the urine since last night. Denies any history of trauma to the area. He called Dr. Rebolledo who advised him to come to emergency room. Patient said he has been passing clot and persistent blood in the urine. Complained of feeling tired and lightheaded. Denies any fever or chills. No nausea or vomiting. No diarrhea. PAST MEDICAL HISTORY: Significant for, 1. Hypertension. 2. Coronary artery disease status post multiple angioplasties. 3. COPD. 4. Anxiety disorder. 5. Recurrent UTI. ALLERGIES: HE IS NOT ALLERGIC TO ANY MEDICATIONS. MEDICATIONS AT HOME: He is on Xanax 0.25 three times a day, atorvastatin 40 mg daily, aspirin 81 daily, Flomax 0.4 daily, Altace 1.25 daily, metoprolol 50 mg twice a day, Zetia 10 mg daily, and Plavix 75 daily. SOCIAL HISTORY: He is still an active smoker, smokes more than 10 cigarettes daily; although, he states he claimed he had cut down from 3-packs daily to few cigarettes a day. PHYSICAL EXAMINATION: GENERAL: He is awake, alert, oriented, communicative, anxious. VITAL SIGNS: He is afebrile, pulse 53, respirations 18, blood pressure 105/69. LUNGS: Bilateral good airflow. No rhonchi or crackle. HEART: S1 and S2 audible. ABDOMEN: Soft, nontender. A suprapubic catheter that is draining blood and urine. EXTREMITIES: Bilateral legs, no edema. LABORATORY DATA: WBC 7.7, hemoglobin 13, hematocrit 39, platelets 249. His PT is 12, INR 1.04. Chemistry: Sodium 143, potassium 4.3, chloride 104, CO2 of 28, BUN 9, creatinine 0.8, blood sugar of 95. Urinalysis shows moderate leukocytes and numerous to count rbc's, positive nitrites. ASSESSMENT AND PLAN: 1. Status post photovaporization of prostate around early August, on 08/26. 2. Coronary artery disease. 3. Hypertension. 4. Hyperlipidemia. 5. Anxiety disorder. PLAN: We will start patient on IV fluids. We will start him on Rocephin to empirically cover him for UTI. Hold his Plavix and aspirin. Dr. Rebolledo and Dr. Deleon for consult. We will follow up his H and H in a.m. Cindy Burgess MD
--- NOTE | 2017-09-05 06:23 | PCM.URO ---
Urology Progress Note - Objective Lab Studies: Reviewed (gu dx: prostatic bleeding s/p pvp, gll gu plans: guzman and spt , repeat labs, suspect hct will have fallen. now urine is better and pt more comfortable. the issue is plavix and prostate after turp. will discuss the timing of plavix or if there is another choice for medical therapy. meantime we are adding proscar. noé cruz [phone]) Intake & Output: Intake & Output 09/04/17 09/04/17 09/05/17 06:59 18:59 06:59 Intake Total 120 Output Total 150 Balance -30 Weight 150 lb Intake: Oral 120 Output: Urine 150 Urine, Voided 150 Other: Voiding Method Indwelling Catheter # Bowel Movements 0 Vital Signs: Vital Signs - 24 hr 09/04/17 09/04/17 09/05/17 20:00 20:46 05:35 Temperature 98.2 F Pulse Rate 55 L 64 Respiratory 18 18 Rate Blood Pressure 103/55 L 119/67 104/66 O2 Sat by Pulse 98 Oximetry
[2017-09-05 07:28] LABS: BASO # 0.04 K/mm3 (0.0-2.0); BASO % 0.4 % (0.0-3.0); EOS # 0.7 (0.0-0.7); EOS % 7.9 % (1.5-5.0); GRAN # 5.13 (1.4-6.5); HEMOGLOBIN 12.2 g/dL (14.0-18.0); LYMPH # 2.5 (1.2-3.4); LYMPH % 27.5 % (22.0-35.0); MEAN CELL VOLUME 88.7 fl (80.0-105.0); MEAN CORPUSCULAR HEMOGLOBIN 29.4 pg (25.0-35.0); MEAN CORPUSCULAR HGB CONC 33.2 g/dl (31.0-37.0); MEAN PLATELET VOLUME 9.3 fl (7.0-11.0); MONO # 0.8 (0.1-0.6); MONO % 8.2 % (1.0-6.0); RBC 4.15 10^6/uL (3.5-6.1); RED CELL DISTRIBUTION WIDTH 14.1 % (11.5-14.5); WHITE BLOOD COUNT 9.2 10^3/ul (4.5-11.0)
[2017-09-05] MEDS: Dextrose 5%/0.45% NS 1,000 ML IV SCH ×2 (08:00→11:47)
[2017-09-05] MEDS: cefTRIAXone 1 gm 1 GM/100 ML BAG IVPB SCH (10:27)
--- NOTE | 2017-09-05 16:30 | PN ---
DATE: SUBJECTIVE: The patient is 66 years old, still has hematuria. He states he feels better than last night. PHYSICAL EXAMINATION: VITAL SIGNS: He is afebrile, pulse 57, respirations 20, blood pressure 104/66. LUNGS: Bilateral good airflow. No rhonchi or crackle. HEART: S1 and S2 audible. ABDOMEN: Soft. Nontender. No rebound. No guarding. NEUROLOGIC: The patient is awake, alert, oriented, communicative. EXTREMITIES: Bilateral leg, no edema. GENITOURINARY: He has suprapubic catheter and penile catheter, both draining bloody urine. LABORATORY EXAM: WBC 9.2, hemoglobin 12.2, hematocrit 36.8, platelet 31. PT 12, INR 1.04. Chemistry is within normal limits. His urine cultures are pending. ASSESSMENT: 1. Hematuria. 2. Probably urinary tract infection. 3. Coronary artery disease. 4. Anemia. PLAN: We will continue aspirin and Plavix is on hold. Get opinion from Cardiology. Continue him on IV fluid. Continue him his Flomax and statins. Analgesic as needed. He has been started on Rocephin. We will continue that. Follow up his culture. Follow up in a.m. Cindy Burgess MD
--- NOTE | 2017-09-05 23:41 | CARD ---
APPROVED REPORT EKG Measurement Heart [id number] [place] [id number] <Conclusion> Normal sinus rhythm Left axis deviation Septal infarct, age undetermined ST & T wave abnormality, consider lateral ischemia Abnormal ECG
[2017-09-06] MEDS: Oxycodone/Acetaminophen 10/325 mg Tab PO PRN (00:08)
[2017-09-06] MEDS: Dextrose 5%/0.45% NS 1,000 ML IV SCH ×2 (00:49→10:50)
[2017-09-06 07:59] VITALS: RESP 20; TEMP 97.6; O2SAT 96
[2017-09-06] MEDS: cefTRIAXone 1 gm 1 GM/100 ML BAG IVPB SCH (09:00)
[2017-09-06 09:02] VITALS: BP 132/80; PULSE 60
--- NOTE | 2017-09-06 10:14 | PN ---
DATE: 09/06/2017 SUBJECTIVE: Jovan is a 66-year-old male admitted to the hospital with hematuria. He has [place] catheter. He was status post procedure of photovaporization of prostate. He was passing also clots in the urine. Hematuria has improved during hospitalization. he passed few clots this morning. Urine container has 3-4 clots floating. Denies any abdominal pain. PAST MEDICAL HISTORY: Hypertension, coronary artery disease, COPD, anxiety, recurrent UTI. ALLERGIES: NO KNOWN DRUG ALLERGIES. SOCIAL HISTORY: Active smoker, smokes more than 10 cigarettes a day. He lives at home. FAMILY HISTORY: Noncontributory. PHYSICAL EXAMINATION: GENERAL: Comfortable, awake, alert, oriented. Afebrile. VITAL SIGNS: Temperature 98.7, heart rate 53 per minute, respiratory rate 18 per minute, blood pressure 105/69. HEENT: Pallor positive. NECK: No lymphadenopathy. CHEST: Air entry present and equal bilaterally. No added sounds. CARDIOVASCULAR: S1 and S2 normal. No murmur, no gallop. ABDOMEN: Soft, nontender. No hepatosplenomegaly. EXTREMITIES: No edema. STREET COMMISSIONER: Alert, oriented x3. No focal sensory motor deficit. LABORATORY DATA: White count 9.2, hemoglobin 12, hematocrit 36.8, platelet 231. Sodium 143, potassium 4.3, creatinine 0.8. ASSESSMENT: 1. Hematuria- continuing. passing clots in urine. 2. Fatigue. 3. Status post prostate surgery. 4. Hematuria, is resolving. Urine culture did not show any growth. PLAN: Currently on ceftriaxone, we can discontinue the ceftriaxone since urine culture has no growth; metoprolol 50 mg p.o. b.i.d., nicotine patch, Percocet p.r.n. for pain. Continue IVFs. Dr. Boss advised the patient to be discharged. I informed Dr. Boss that he is still passing clots and urine is still bloody. Discussed with Dr. Burgess also. She advised to continue hydration and against discharge. Aspirin , plavix on hold. Cardiology opinion requested in this regard. Continue Flomax, Xanax for anxiety, Lipitor 40 mg daily. Josefina Will MD MTDD
--- NOTE | 2017-09-06 15:20 | PCM.URO ---
Urology Progress Note - Objective Lab Studies: Reviewed (gu plans : as before / full note dictated) Intake & Output: Intake & Output 09/05/17 09/06/17 09/06/17 18:59 06:59 18:59 Intake Total 636 693 2174 Output Total 1000 1625 3725 Balance -520 -965 -605 Intake: IV 900 Right Wrist 900 Oral 032 567 8585 Output: Urine 1000 1625 3200 Urethral (Wood[place]) 1000 1625 3200 Emesis 525 Other: # Voids Urine, Voided 2 # Bowel Movements 0 0 1 Vital Signs: Vital Signs - 24 hr 09/05/17 09/05/17 09/06/17 16:00 17:19 07:58 Temperature 97.7 F 97.6 F Pulse Rate 71 49 L 54 L Respiratory 18 20 Rate Blood Pressure 102/66 102/66 110/68 O2 Sat by Pulse 95 96 Oximetry 09/06/17 09/06/17 09/06/17 08:02 08:59 09:00 Temperature 97.6 F Pulse Rate 54 L 60 Respiratory 20 Rate Blood Pressure 110/68 138/80 132/80 O2 Sat by Pulse 96 Oximetry
--- NOTE | 2017-09-06 17:00 | CP.PCM.PN ---
Subjective - Date & Time of Evaluation Date of Evaluation: 09/06/17 Time of Evaluation: 16:58 - Subjective Subjective: PGY-[address] Will CC: AMA S: RN called that pt wants to sign AMA. I was handling a suspected anaphylaxis case. After successfully transfer pt to the ED care, I called RN who states that pt has left Objective - Vital Signs/Intake and Output Vital Signs (last 24 hours): Temp Pulse Resp BP Pulse Ox 97.6 F 60 20 132/80 96 09/06/17 08:02 09/06/17 08:59 09/06/17 08:02 09/06/17 09:00 09/06/17 08:02 Intake and Output: 09/06/17 09/06/17 06:59 18:59 Intake Total 660 3120 Output Total 1625 3725 Balance -965 -605 - Medications Medications: Current Medications Alprazolam (Xanax) 0.25 mg PO TID PRN; Protocol PRN Reason: Anxiety Stop: 09/11/17 18:59 Last Admin: 09/06/17 08:51 Dose: 0.25 mg Atorvastatin Calcium (Lipitor) 40 mg PO DAILY [facility] Last Admin: 09/06/17 09:00 Dose: 40 mg Ezetimibe (Zetia) 10 mg PO DAILY [facility] Last Admin: 09/06/17 09:00 Dose: 10 mg Finasteride (Proscar) 5 mg PO DAILY [facility] Last Admin: 09/06/17 08:59 Dose: 5 mg Dextrose/Sodium Chloride (Dextrose 5%/0.45% Ns 1000 Ml) 1,000 mls @ 75 mls/hr IV .[id number] [facility] Last Admin: 09/06/17 10:50 Dose: Not Given Ceftriaxone Sodium (Rocephin 1 Gram Ivpb) 1 gm in 100 mls @ 100 mls/hr IVPB DAILY [facility] PRN Reason: Protocol Last Admin: 09/06/17 09:00 Dose: 100 mls/hr Metoprolol Tartrate (Lopressor) 50 mg PO BID [facility] Last Admin: 09/06/17 08:59 Dose: 50 mg Nicotine (Nicoderm Cq) 1 patch TD DAILY [facility] Last Admin: 09/06/17 09:00 Dose: 1 patch Oxycodone/Acetaminophen (Percocet 10/325 Mg Tab) 1 tab PO Q6H PRN PRN Reason: Pain, moderate (4-7) Last Admin: 09/06/17 00:08 Dose: 1 tab Ramipril (Altace) 1.25 mg PO DAILY [facility] Last Admin: 09/06/17 09:00 Dose: 1.25 mg Tamsulosin HCl (Flomax) 0.4 mg PO DAILY [facility] Last Admin: 09/06/17 09:00 Dose: 0.4 mg - Labs Labs: 09/05/17 07:00 PT 12.0 SECONDS (9.4-12.5) 09/04/17 13:00 INR 1.04 (0.93-1.08) 09/04/17 13:00 APTT 33.7 Seconds (25.1-36.5) 09/04/17 13:00
--- NOTE | 2017-09-06 21:56 | CP.PCM.DIS ---
Provider - Provider Date of Admission: 09/04/17 16:04 Attending physician: Cindy Burgess MD Time Spent in preparation of Discharge (in minutes): 0 Hospital Course - Lab Results Lab Results: Most Recent Lab Values WBC 9.2 10^3/ul (4.5-11.0) 09/05/17 07:00 RBC 4.15 10^6/uL (3.5-6.1) 09/05/17 07:00 Hgb 12.2 g/dL (14.0-18.0) L 09/05/17 07:00 Hct 36.8 % (42.0-52.0) L 09/05/17 07:00 MCV 88.7 fl (80.0-105.0) 09/05/17 07:00 MCH 29.4 pg (25.0-35.0) 09/05/17 07:00 MCHC 33.2 g/dl (31.0-37.0) 09/05/17 07:00 RDW 14.1 % (11.5-14.5) 09/05/17 07:00 Plt Count 231 10^3/uL (120.0-450.0) 09/05/17 07:00 MPV 9.3 fl (7.0-11.0) 09/05/17 07:00 Gran % 56.0 % (50.0-68.0) 09/05/17 07:00 Lymph % (Auto) 27.5 % (22.0-35.0) 09/05/17 07:00 [place] % (Auto) 8.2 % (1.0-6.0) H 09/05/17 07:00 Eos % (Auto) 7.9 % (1.5-5.0) H 09/05/17 07:00 Baso % (Auto) 0.4 % (0.0-3.0) 09/05/17 07:00 Gran # 5.13 (1.4-6.5) 09/05/17 07:00 Lymph # (Auto) 2.5 (1.2-3.4) 09/05/17 07:00 [place] # (Auto) 0.8 (0.1-0.6) H 09/05/17 07:00 Eos # (Auto) 0.7 (0.0-0.7) 09/05/17 07:00 Baso # (Auto) 0.04 K/mm3 (0.0-2.0) 09/05/17 07:00 PT 12.0 SECONDS (9.4-12.5) 09/04/17 13:00 INR 1.04 (0.93-1.08) 09/04/17 13:00 APTT 33.7 Seconds (25.1-36.5) 09/04/17 13:00 Sodium 143 mmol/L (132-148) 09/04/17 13:00 Potassium 4.3 mmol/L (3.6-5.0) 09/04/17 13:00 Chloride 104 mmol/L (98-107) 09/04/17 13:00 Carbon Dioxide 28 mmol/L (21-33) 09/04/17 13:00 Anion Gap 15 (10-20) 09/04/17 13:00 BUN 9 mg/dL (7-21) 09/04/17 13:00 Creatinine 0.8 mg/dl (0.8-1.5) 09/04/17 13:00 Est GFR ( Amer) > 60 09/04/17 13:00 Est GFR (Non-Af Amer) > 60 09/04/17 13:00 Random Glucose 95 mg/dL (70-110) 09/04/17 13:00 Calcium 9.4 mg/dL (8.4-10.5) 09/04/17 13:00 Magnesium 1.9 mg/dL (1.7-2.2) 09/04/17 13:00 Total Bilirubin 0.4 mg/dL (0.2-1.3) 09/04/17 13:00 AST 40 U/L (17-59) 09/04/17 13:00 ALT 50 U/L (7-56) 09/04/17 13:00 Alkaline Phosphatase 63 U/L (38-126) 09/04/17 13:00 Total Protein 6.6 g/dL (5.8-8.3) 09/04/17 13:00 Albumin 3.9 g/dL (3.0-4.8) 09/04/17 13:00 Globulin 2.8 gm/dL 09/04/17 13:00 Albumin/Globulin Ratio 1.4 (1.1-1.8) 09/04/17 13:00 Urine Color Red (YELLOW) 09/04/17 13:10 Urine Appearance Turbid (CLEAR) 09/04/17 13:10 Urine pH 7.0 (4.7-8.0) 09/04/17 13:10 Ur Specific [place] 1.015 (1.005-1.035) 09/04/17 13:10 Urine Protein >=300 mg/dL (<30 mg/dL) H 09/04/17 13:10 Urine Glucose (UA) 100 mg/dL (NEGATIVE) H 09/04/17 13:10 Urine Ketones 15 mg/dL (NEGATIVE) H 09/04/17 13:10 Urine Blood Large (NEGATIVE) H 09/04/17 13:10 Urine Nitrate Positive (NEGATIVE) H 09/04/17 13:10 Urine Bilirubin Small (NEGATIVE) H 09/04/17 13:10 Urine Urobilinogen 2.0 E.U./dL (<1 E.U./dL) H 09/04/17 13:10 Ur Leukocyte Esterase Moderate [place]/uL (NEGATIVE) H 09/04/17 13:10 Urine RBC Tntc /hpf (0-2) 09/04/17 13:10 Urine WBC Negative /hpf (0-6) 09/04/17 13:10 - Hospital Course Hospital Course: pt. left ama. detailed noted dictated 09/06, please consider that as final note. - Date & Time of H&P Date of H&P: 09/06/17 Time of H&P: 18:00 Discharge Plan - Follow Up Plan Condition: STABLE Disposition: AGAINST MEDICAL ADVICE Instructions: Urinary Tract Infection, Adult (DC), Blood in the Urine ( Hematuria), Adult (DC), Quitting Smoking
== END 2017-09-06 15:30 | disposition left against medical advice (07) ==
LOC: ED 11:33 → ERH 16:04 → 3RNO 20:21
PROVIDERS: ADMIT Internal Medicine; ATTEND Internal Medicine
DX: N39.0 Urinary tract infection, site not specified (principal); R31.0 Gross hematuria; N40.0 Benign prostatic hyperplasia without lower urinary tract symptoms; I10 Essential (primary) hypertension; E78.5 Hyperlipidemia, unspecified; I25.10 Atherosclerotic heart disease of native coronary artery without angina pectoris; J44.9 Chronic obstructive pulmonary disease, unspecified; F41.9 Anxiety disorder, unspecified; F17.210 Nicotine dependence, cigarettes, uncomplicated; D64.9 Anemia, unspecified; Z87.440 Personal history of urinary (tract) infections; Z79.02 Long term (current) use of antithrombotics/antiplatelets; Z79.82 Long term (current) use of aspirin; Z79.899 Other long term (current) drug therapy
CPT/HCPCS: 36415; 74176; 80053; 81001; 83735; 85025; 85610; 85730; 87086; 93005; 99285; G0378; J0696; J7042

== ENCOUNTER 2017-09-19 12:01 | Inpatient (IN) | payer MEDICARE ==
[2017-09-19 12:18] VITALS: BMI 24.7
[2017-09-19] MEDS ORDERED: Morphine 4 mg/ml ISec IVP STA ×3 (12:49→17:46)
--- NOTE | 2017-09-19 12:53 | ED PDOC ---
Arrival/HPI - General Chief Complaint: Male Genitourinary Time Seen by Provider: 09/19/17 12:45 Historian: Patient - History of Present Illness Narrative History of Present Illness (Text): 09/19/17 12:50 pt p/w + sudden onset of urinary retention since earlier this morning; pt states last urination was last night but he noted hematuria yesterday afternoon ; pt states he was wearing/using a veliz cath up until 1 week ago and was removed successfully; pt restarted on plavix ~ 3 days ago and noted the hematuria yesterday afternoon; pt states since then has been urinating some blood regularly; pt also states now he is urinating every few minutes with excruciating lower abd cramps/pain; pt felt jittery and shakey; pt states no fever/chills/sweats, no cp/sob/palpitations, no n/v, no numbness/tingling; pt denied fall/trauma/sick contact, no travel; pt is here for further eval pt's without other complaints PCP: Dr Burgess urology: Dr Rebolledo Time/Duration: 24 hours Symptom Onset: Sudden Symptom Course: Worsening Quality: Cramping, Throbbing Severity Level: 10, Severe Activities at Onset: Rest Context: Home Past Medical History - Provider Review Nursing Documentation Reviewed: Yes - Travel History Have you recently traveled outside [place] w/in the past 3 mons?: No - Past History Past History: Non-Contributing - Infectious Disease Hx of Infectious Diseases: None - Tetanus Immunization Tetanus Immunization: Unknown - Cardiac Hx Cardiac Disorders: Yes - Pulmonary Hx Respiratory Disorders: Yes - Neurological Hx Neurological Disorder: No - HEENT Hx HEENT Disorder: Yes Other/Comment: TINNITUS - Renal Hx Renal Disorder: No - Endocrine/Metabolic Hx Endocrine Disorders: No - Hematological/Oncological Hx Blood Disorders: No - Integumentary Hx Dermatological Disorder: No - Musculoskeletal/Rheumatological Hx Musculoskeletal Disorders: Yes (BILATERAL KNEE SX) - Gastrointestinal Hx Gastrointestinal Disorders: Yes (APPENDECTOMY) - Genitourinary/Gynecological Hx Genitourinary Disorders: Yes (URINARY RETENTION) Hx Prostate Problems: Yes Other/Comment: VELIZ - Psychiatric Hx Psychophysiologic Disorder: Yes Hx Anxiety: Yes Hx Substance Use: No - Surgical History Hx Appendectomy: Yes Hx Orthopedic Surgery: Yes Other/Comment: PROSTATE SURGERY - Anesthesia Hx Anesthesia Reactions: No Hx Malignant Hyperthermia: No - Suicidal Assessment Feels Threatened In Home Enviroment: No Family/Social History - Physician Review Nursing Documentation Reviewed: Yes Family/Social History: No Known Family HX Smoking Status: Heavy Smoker > 10 Cigarettes Daily Hx Alcohol Use: Yes (SOCIALLY) Hx Substance Use: No Hx Substance Use Treatment: No Allergies/Home Meds Allergies/Adverse Reactions: Allergies No Known Allergies Allergy (Verified 09/04/17 11:44) Home Medications: Home Meds Medication Instructions Recorded Confirmed Aspirin [Ecotrin] 81 mg PO DAILY 12/11/15 09/04/17 Clopidogrel [Plavix] 75 mg PO DAILY 12/11/15 09/04/17 Metoprolol Tartrate 50 mg PO BID 12/11/15 09/04/17 Ramipril [Altace] 1.25 mg PO DAILY 12/11/15 09/04/17 Atorvastatin [Lipitor] 40 mg PO DAILY 07/19/16 09/04/17 Ezetimibe [Zetia] 10 mg PO DAILY 12/03/16 09/04/17 ALPRAZolam [Xanax] 0.25 mg PO TID PRN 08/25/17 09/04/17 Review of Systems - Review of Systems Constitutional: Normal. absent: Fatigue Eyes: Normal ENT: Normal Respiratory: Normal. absent: SOB Cardiovascular: Normal. absent: Chest Pain Gastrointestinal: Abdominal Pain. absent: Nausea, Vomiting Genitourinary Male: Frequency, Hematuria, Urinary Output Changes. absent: Dysuria Musculoskeletal: Normal Skin: Normal Neurological: Normal Endocrine: Normal Hemo/Lymphatic: Normal Psychiatric: Normal Physical Exam Vital Signs Reviewed: Yes Vital Signs Temp Pulse Resp BP Pulse Ox 09/19/17 17:33 83 18 101/69 98 09/19/17 12:02 98.1 F 68 20 129/67 98 Temperature: Afebrile Blood Pressure: Normal Pulse: Regular Respiratory Rate: Normal Appearance: Positive for: Well-Appearing, Non-Toxic, Uncomfortable, Other (alert /awake, GCS = 15, oriented x 3, uncomfortable, standing in his exam room/colicky ; moderate-severe distress due to pain; cooperative, follows command with ease) Pain Distress: Severe Mental Status: Positive for: Alert and Oriented X 3 - Systems Exam Head: Present: Atraumatic, Normocephalic, Other (mild bi-temporal wasting) Pupils: Present: PERRL, Other (no nystagmus, no photophobia, sclera anicteric, visual field intact b/l) Extroacular Muscles: Present: EOMI Conjunctiva: Present: Normal Ears: Present: Normal Mouth: Present: Dry, Other (fair dentitions/no drooling, mild dry oral mucosa; no dysphonia, uvula/tongue are midline) Pharnyx: Present: Normal Nose (External): Present: Atraumatic Nose (Internal): Present: Normal Inspection Neck: Present: Normal Range of Motion, Trachea Midline, Other (intact ROM, no midline tenderness, no nuchal rigidity, no meningeal signs). No: Meningeal Signs, MIDLINE TENDERNESS, Paraspinal Tenderness Respiratory/Chest: Present: Clear to Auscultation, Good Air Exchange, Other ( CTA b/l, no w/r/r, no tachypenia). No: Respiratory Distress, Accessory Muscle Use, Wheezes Cardiovascular: Present: Regular Rate and Rhythm, Normal S1, S2. No: Murmurs Abdomen: Present: Tenderness, Normal Bowel Sounds, Other (+ mid/lower abd tenderness/bloating, no seaman's sign, no mcburney's point tenderness, no masses /rebound/guarding/rigidity) Back: Present: Normal Inspection, Other (no step off, no discolorations noted, no midline tenderness). No: CVA Tenderness, Midline Tenderness, Paraspinal Tenderness Upper Extremity: Present: Normal Inspection, Normal ROM, NORMAL PULSES, Neurovascularly Intact Lower Extremity: Present: Normal Inspection, NORMAL PULSES, Normal ROM, Neurovascularly Intact, Other (+ ambulatory). No: Deformity Neurological: Present: GCS=15, CN II-XII Intact, Speech Normal Skin: Present: Warm, Other (cap refill ~ 1sec, no ulcerations, no petechiae, mild pallor noted). No: Rashes Psychiatric: Present: Alert, Oriented x 3 Medical Decision Making ED Course and Treatment: 09/19/17 12:45 Impression: urinary retention/hematuria i have consider all the differential diagnosis regarding pt's chief medical complaints/clinical findings, including but are not limited to: urinary retention/hematuria A/P: urinary retention/hematuria - labs - veliz - iv - supportive care - observe/reevaluation pt continues to stand and pace in his room, holding on; uncomfortable, in severe pain pt is requesting a dose of morphine to ease his pain so that he can receive a veliz catheter 1350 pt received a standard veliz catheter, + very bloody and not flowing, pt with continued pain and colicky pain irrigation of the veliz catheter only is able to instill and unable to pull back the fluid/remained bloody will recommend a CBI with 3 way veliz catheter pt is aware and agrees 09/19/2017 14:[address] Rebolledo, whom agrees with ED management of patient and agrees with CBI. Recommends to provide patient 22 Greek urinary catheter, ideally, and Dr. Rebolledo will arrive in the morning to evaluate patient; agrees with admission of pt to medicine service 09/19/17 15:08 Dr. Burgess at bedside. Has been made aware of patient's medical condition and agrees with ED management and will admit patient for further mgt care/monitor; would like to consult Dr. Rebolledo. will hold plavix 09/19/17 16:24 pt with good flow with the veliz cath with intermittent obstruction ~ 500 ml of dark bloody urine is removed pt is hesitant with a larger 3 way catheter, but will try it pt is made aware of his medical results agrees with admission 09/19/17 17:30 i [address] able to place a 22 Fr 3-way veliz catheter to begin CBI pt is uncomfortable and requesting pain control Re-evaluation Time: 14:30 - Critical Care Critical Care Minutes: 30 minutes Critical Care Time: Excluding Proc Time Narrative Critical Care (Text): 09/19/17 16:29 critical care time: 30min, excluding procedure time, excluding time teaching residents/students/mid-level providers; including initial eval/diagnosis, diagnostic interpretation, re-eval, consultations, final disposition - Lab Interpretations Lab Results: 09/19/17 13:00 09/19/17 13:00 Lab Results 09/19/17 14:30: Urine Color Red, Urine Appearance Bloody, Urine pH 7.5, Ur Specific [place] 1.015, Urine Protein >=300 H, Urine Glucose (UA) 250 H, Urine Ketones 15 H, Urine Blood Large H, Urine Nitrate Positive H, Urine Bilirubin Moderate H, Urine Urobilinogen 2.0 H, Ur Leukocyte Esterase Moderate H, Urine RBC Tntc, Urine WBC 10 - 15, Ur Epithelial Cells Many 09/19/17 13:00: Sodium 140, Potassium 4.2, Chloride 104, Carbon Dioxide 22, Anion Gap 18, BUN 14, Creatinine 0.6 L, Est GFR ( Amer) > 60, Est GFR ( Non-Af Amer) > 60, Random Glucose 139 H, Calcium 9.7, Total Bilirubin 0.4, AST 39, ALT 26, Alkaline Phosphatase 85, Total Protein 7.6, Albumin 4.3, Globulin 3.3, Albumin/Globulin Ratio 1.3 09/19/17 13:00: WBC 10.3, RBC 4.38, Hgb 13.0 L, Hct 37.6 L, MCV 85.8, MCH 29.7, MCHC 34.6, RDW 13.9, Plt Count 277, MPV 9.2, Gran % 71.0 H, Lymph % (Auto) 17.7 L, [place] % (Auto) 9.1 H, Eos % (Auto) 1.8, Baso % (Auto) 0.4, Gran # 7.29 H, Lymph # (Auto) 1.8, [place] # (Auto) 0.9 H, Eos # (Auto) 0.2, Baso # (Auto) 0.04 I have reviewed the lab results: Yes Interpretation: Abnormal lab values (ABNL U/A) - Medication Orders Current Medication Orders: Sodium Chloride (Sodium Chloride 0.9%) 1,000 mls @ 100 mls/hr IV .Q10H [facility] Last Admin: 09/19/17 16:53 Dose: 100 mls/hr eMAR Start Stop Document 09/19/17 16:53 EQ (Rec: 09/19/17 16:53 EQ [id number]) Intravenous Solution Start Date 09/19/17 Start Time 16:53 Morphine Sulfate (Morphine) 4 mg IVP STAT STA Stop: 09/19/17 17:47 Discontinued Medications Sodium Chloride (Sodium Chloride 0.9%) 500 mls @ 999 mls/hr IV .Q31M STA Stop: 09/19/17 13:25 Last Admin: 09/19/17 13:06 Dose: 999 mls/hr eMAR Start Stop Document 09/19/17 13:06 EQ (Rec: 09/19/17 13:06 EQ [id number]) Intravenous Solution Start Date 09/19/17 Start Time 13:06 Ceftriaxone Sodium (Rocephin 1 Gram Ivpb) 1 gm in 100 mls @ 200 mls/hr IVPB STAT STA PRN Reason: Protocol Stop: 09/19/17 15:41 Last Admin: 09/19/17 16:53 Dose: 200 mls/hr eMAR Start Stop Document 09/19/17 16:53 EQ (Rec: 09/19/17 16:53 EQ [id number]) Intravenous Solution Start Date 09/19/17 Start Time 16:53 Lidocaine HCl (Lidocaine 2% Viscous) 15 ml MM STAT STA Stop: 09/19/17 16:06 Last Admin: 09/19/17 16:51 Dose: 15 ml Morphine Sulfate (Morphine) 4 mg IVP STAT STA Stop: 09/19/17 12:50 Last Admin: 09/19/17 13:05 Dose: 4 mg MAR Pain Assessment Document 09/19/17 13:05 EQ (Rec: 09/19/17 13:05 EQ [id number]) Pain Reassessment Is this a pain reassessment? No Sleep Is patient sleeping during reassessment? No Presence of Pain Presence of Pain Yes IVP Administration Document 09/19/17 13:05 EQ (Rec: 09/19/17 13:05 EQ [id number]) Charges for Administration # of IVP Administrations 1 Morphine Sulfate (Morphine) 4 mg IVP STAT STA Stop: 09/19/17 15:04 Last Admin: 09/19/17 16:51 Dose: 4 mg MAR Pain Assessment Document 09/19/17 16:51 EQ (Rec: 09/19/17 16:51 EQ [id number]) Pain Reassessment Is this a pain reassessment? Yes Sleep Is patient sleeping during reassessment? No Presence of Pain Presence of Pain Yes IVP Administration Document 09/19/17 16:51 EQ (Rec: 09/19/17 16:51 EQ [id number]) Charges for Administration # of IVP Administrations 1 Procedures - Additional Procedures Progress: Veliz cath insertion (3 way): using 22 [place] 3-way veliz catheter, under sterile technique, with the tip of the catheter copiously rub with surgilub and pt premedicated as well as provided with lidocaine top, was able to insert the 22 [place] catheter slowly and secured in place. With start of CBI, noted dark- cranberry like urine; pt felt continued spasms/pain/irritation; pt tolerated the procedure well, NO BLOOD LOSS was noted Disposition/Present on Arrival - Present on Arrival Any Indicators Present on Arrival: No History of DVT/PE: No History of Uncontrolled Diabetes: No Urinary Catheter: No History of Decub. Ulcer: No History Surgical Site Infection Following: None - Disposition Have Diagnosis and Disposition been Completed?: Yes Diagnosis: Gross hematuria, Urinary retention, Intractable abdominal pain Disposition: HOSPITALIZED Disposition Time: 15:50 Patient Plan: Admission Patient Problems: Current Active Problems Problem Status Onset Gross hematuria Acute Urinary retention Acute Intractable abdominal pain Acute Condition: STABLE
[2017-09-19] MEDS ORDERED: Sodium Chloride 0.9% 500 ML IV STA (12:55)
[2017-09-19 13:20] LABS: BASO # 0.04 K/mm3 (0.0-2.0); BASO % 0.4 % (0.0-3.0); EOS # 0.2 (0.0-0.7); EOS % 1.8 % (1.5-5.0); GRAN # 7.29 (1.4-6.5); LYMPH # 1.8 (1.2-3.4); LYMPH % 17.7 % (22.0-35.0); MEAN CELL VOLUME 85.8 fl (80.0-105.0); MEAN CORPUSCULAR HEMOGLOBIN 29.7 pg (25.0-35.0); MEAN CORPUSCULAR HGB CONC 34.6 g/dl (31.0-37.0); MEAN PLATELET VOLUME 9.2 fl (7.0-11.0); MONO # 0.9 (0.1-0.6); MONO % 9.1 % (1.0-6.0); RBC 4.38 10^6/uL (3.5-6.1); RED CELL DISTRIBUTION WIDTH 13.9 % (11.5-14.5); WHITE BLOOD COUNT 10.3 10^3/ul (4.5-11.0)
[2017-09-19 14:05] LABS: ALB/GLOB RATIO 1.3 (1.1-1.8); ALBUMIN 4.3 g/dL (3.0-4.8); ALT/SGPT 26 U/L (7-56); AST/SGOT 39 U/L (17-59); BLOOD UREA NITROGEN 14 mg/dL (7-21); CALCIUM 9.7 mg/dL (8.4-10.5); GFR AFRICAN-AMERICAN > 60; GFR NON-AFRICAN AMERICAN > 60
[2017-09-19] MEDS ORDERED: Morphine 2 mg/ml ISec IVP STA (15:01)
[2017-09-19] MEDS ORDERED: cefTRIAXone 1 gm 1 GM/100 ML BAG IVPB STA (15:12)
[2017-09-19 16:31] LABS: PH,URINE 7.5 (4.7-8.0); URINE BILIRUBIN MODERATE (NEGATIVE); URINE BLOOD LARGE (NEGATIVE); URINE GLUCOSE (UA) 250 mg/dL (NEGATIVE); URINE LEUKOCYTE ESTERASE MODERATE Leu/uL (NEGATIVE); URINE PROTEIN >=300 mg/dL (<30 mg/dL)
[2017-09-19 16:32] LABS: URINE APPEARANCE BLOODY (CLEAR); URINE COLOR RED (YELLOW); URINE RBC TNTC /hpf (0-2)
[2017-09-19 16:33] LABS: URINE EPITHELIAL CELLS MANY /hpf (0-5)
[2017-09-19] MEDS: Sodium Chloride 0.9% 1,000 ML IV SCH (16:53)
[2017-09-19] MEDS ORDERED: Pneumococcal 23-Valent Vaccine IM ONE (19:18)
[2017-09-19 19:50] LABS: HEMOGLOBIN 10.5 g/dL (14.0-18.0); MEAN CELL VOLUME 86.8 fl (80.0-105.0); MEAN CORPUSCULAR HEMOGLOBIN 28.8 pg (25.0-35.0); MEAN CORPUSCULAR HGB CONC 33.2 g/dl (31.0-37.0); MEAN PLATELET VOLUME 8.9 fl (7.0-11.0); RBC 3.64 10^6/uL (3.5-6.1); RED CELL DISTRIBUTION WIDTH 13.8 % (11.5-14.5); WHITE BLOOD COUNT 14.6 10^3/ul (4.5-11.0)
[2017-09-19] MEDS: Morphine 4 mg/ml ISec IVP PRN (21:01)
[2017-09-20] MEDS: Morphine 4 mg/ml ISec IVP PRN ×3 (00:57→16:35)
[2017-09-20] MEDS ORDERED: HYDROmorphone 0.5 mg/0.5 ml ISec IVP STA (02:28)
--- NOTE | 2017-09-20 02:43 | CP.PCM.PN ---
Subjective - Date & Time of Evaluation Date of Evaluation: 09/20/17 Time of Evaluation: 02:29 - Subjective Subjective: Seen at bedside. Complains of gas pain, anxiety, constipation, burning pain in urethra. Requests for some suppository. Received morphine, xanax with no relief. Has no other complaints now. This 66 year old white male is admitted with intractable abdominal pain, gross hematuria, urinary retention. Has PMH of urinary retention, gross hematuria, UTI,voiding dysfunction. Objective - Vital Signs/Intake and Output Vital Signs (last 24 hours): Temp Pulse Resp BP Pulse Ox 97.7 F 83 20 148/95 H 98 09/19/17 22:00 09/19/17 22:00 09/19/17 22:00 09/19/17 22:00 09/19/17 22:00 Intake and Output: 09/19/17 09/20/17 18:59 06:59 Output Total 5325 Balance -5325 - Medications Medications: Current Medications Alprazolam (Xanax) 0.25 mg PO TID PRN; Protocol PRN Reason: Anxiety Stop: 09/26/17 18:05 Last Admin: 09/19/17 23:48 Dose: 0.25 mg Atorvastatin Calcium (Lipitor) 40 mg PO DAILY [facility] Hydromorphone HCl (Dilaudid) 0.5 mg IVP STAT STA Stop: 09/20/17 02:29 Sodium Chloride (Sodium Chloride 0.9%) 1,000 mls @ 100 mls/hr IV .Q10H [facility] Last Admin: 09/19/17 16:53 Dose: 100 mls/hr Ceftriaxone Sodium (Rocephin 1 Gram Ivpb) 1 gm in 100 mls @ 100 mls/hr IVPB DAILY [facility] PRN Reason: Protocol Metoprolol Tartrate (Lopressor) 50 mg PO BID [facility] Last Admin: 09/19/17 18:20 Dose: 50 mg Morphine Sulfate (Morphine) 4 mg IVP Q4H PRN PRN Reason: Pain, severe (8-10) Last Admin: 09/20/17 00:57 Dose: 4 mg Ramipril (Altace) 1.25 mg PO DAILY [facility] Tamsulosin HCl (Flomax) 0.4 mg PO DAILY [facility] - Labs Labs: 09/19/17 19:35 Most Recent Lab Values WBC 14.6 10^3/ul (4.5-11.0) H D 09/19/17 19:35 RBC 3.64 10^6/uL (3.5-6.1) 09/19/17 19:35 Hgb 10.5 g/dL (14.0-18.0) L D 09/19/17 19:35 Hct 31.6 % (42.0-52.0) L 09/19/17 19:35 MCV 86.8 fl (80.0-105.0) 09/19/17 19:35 MCH 28.8 pg (25.0-35.0) 09/19/17 19: MCHC 33.2 g/dl (31.0-37.0) 09/19/17 19: RDW 13.8 % (11.5-14.5) 09/19/17 19:35 Plt Count 214 10^3/uL (120.0-450.0) 09/19/17 19:35 MPV 8.9 fl (7.0-11.0) 09/19/17 19:35 Gran % 71.0 % (50.0-68.0) H 09/19/17 13:00 Lymph % (Auto) 17.7 % (22.0-35.0) L 09/19/17 13:00 Moca % (Auto) 9.1 % (1.0-6.0) H 09/19/17 13:00 Eos % (Auto) 1.8 % (1.5-5.0) 09/19/17 13:00 Baso % (Auto) 0.4 % (0.0-3.0) 09/19/17 13:00 Gran # 7.29 (1.4-6.5) H 09/19/17 13:00 Lymph # (Auto) 1.8 (1.2-3.4) 09/19/17 13:00 Moca # (Auto) 0.9 (0.1-0.6) H 09/19/17 13:00 Eos # (Auto) 0.2 (0.0-0.7) 09/19/17 13:00 Baso # (Auto) 0.04 K/mm3 (0.0-2.0) 09/19/17 13:00 Sodium 140 mmol/L (132-148) 09/19/17 13:00 Potassium 4.2 mmol/L (3.6-5.0) 09/19/17 13:00 Chloride 104 mmol/L (98-107) 09/19/17 13:00 Carbon Dioxide 22 mmol/L (21-33) 09/19/17 13:00 Anion Gap 18 (10-20) 09/19/17 13:00 BUN 14 mg/dL (7-21) 09/19/17 13:00 Creatinine 0.6 mg/dl (0.8-1.5) L 09/19/17 13:00 Est GFR ( Amer) > 60 09/19/17 13:00 Est GFR (Non-Af Amer) > 60 09/19/17 13:00 Random Glucose 139 mg/dL (70-110) H 09/19/17 13:00 Calcium 9.7 mg/dL (8.4-10.5) 09/19/17 13:00 Total Bilirubin 0.4 mg/dL (0.2-1.3) 09/19/17 13:00 AST 39 U/L (17-59) 09/19/17 13:00 ALT 26 U/L (7-56) 09/19/17 13:00 Alkaline Phosphatase 85 U/L (38-126) 09/19/17 13:00 Total Protein 7.6 g/dL (5.8-8.3) 09/19/17 13:00 Albumin 4.3 g/dL (3.0-4.8) 09/19/17 13:00 Globulin 3.3 gm/dL 09/19/17 13:00 Albumin/Globulin Ratio 1.3 (1.1-1.8) 09/19/17 13:00 Urine Color Red (YELLOW) 09/19/17 14:30 Urine Appearance Bloody (CLEAR) 09/19/17 14:30 Urine pH 7.5 (4.7-8.0) 09/19/17 14:30 Ur Specific [place] 1.015 (1.005-1.035) 09/19/17 14:30 Urine Protein >=300 mg/dL (<30 mg/dL) H 09/19/17 14:30 Urine Glucose (UA) 250 mg/dL (NEGATIVE) H 05/05/18 14:30 Urine Ketones 15 mg/dL (NEGATIVE) H 09/19/17 14:30 Urine Blood Large (NEGATIVE) H 09/19/17 14:30 Urine Nitrate Positive (NEGATIVE) H 09/19/17 14:30 Urine Bilirubin Moderate (NEGATIVE) H 09/19/17 14:30 Urine Urobilinogen 2.0 E.U./dL (<1 E.U./dL) H 09/19/17 14:30 Ur Leukocyte Esterase Moderate [place]/uL (NEGATIVE) H 09/19/17 14:30 Urine RBC Tntc /hpf (0-2) 09/19/17 14:30 Urine WBC 10 - 15 /hpf (0-6) 09/19/17 14:30 Ur Epithelial Cells Many /hpf (0-5) 09/19/17 14:30 - Constitutional Appears: Well, No Acute Distress - Head Exam Head Exam: ATRAUMATIC, NORMAL INSPECTION, NORMOCEPHALIC - Eye Exam Eye Exam: Normal appearance - ENT Exam ENT Exam: Normal External Ear Exam - Neck Exam Neck Exam: Normal Inspection - Respiratory Exam Respiratory Exam: NORMAL BREATHING PATTERN - Cardiovascular Exam Cardiovascular Exam: absent: JVD - GI/Abdominal Exam GI & Abdominal Exam: absent: Distended - Rectal Exam Rectal Exam: Deferred - Exam Additional comments: Deferred. - Extremities Exam Extremities Exam: Normal Inspection - Back Exam Back Exam: NORMAL INSPECTION - Neurological Exam Neurological Exam: Alert, Awake, Oriented x3 - Psychiatric Exam Psychiatric exam: Normal Affect, Normal Mood - Skin Skin Exam: Normal Color Assessment and Plan - Assessment and Plan (Free Text) Assessment: Abdominal pain. Urethral pain. Urinary retention. Gross hematuria. Urinary retention. Constipation. Plan: Dilaudid 0.5 mg IV x 1. Gleycerine suppository x1. Continue management as per PMD and urology.
[2017-09-20] MEDS: Sodium Chloride 0.9% 1,000 ML IV SCH ×4 (04:48→21:49)
--- NOTE | 2017-09-20 04:51 | HP ---
HISTORY OF PRESENT ILLNESS: Patient is s 66-year-old male who is known to me from multiple previous admissions. Patient was seen in office yesterday. He was doing well. He states last night, he started to have blood-tinged urine. From this morning, he was having blood in his urine and with suprapubic discomfort, he was unable to pee, so he came to emergency room for further evaluation. Patient does admit that he started aspirin and Plavix 5 days ago. Denies any fever or chills. No history of nausea or vomiting. PAST MEDICAL HISTORY: Significant for: 1. Hypertension. 2. Coronary artery disease, status post multiple angioplasties. 3. Anxiety disorder. 4. COPD. 5. Recurrent UTI prior to prostatic surgery. ALLERGIES: HE IS NOT ALLERGIC TO ANY MEDICATION. MEDICATION AT HOME: He is on Xanax 0.25 t.i.d. p.r.n., Plavix 75 daily, Lipitor 40 mg daily, aspirin 81 daily, Flomax 0.4 daily, Ramipril 1.25 daily, metoprolol 50 mg twice a day, Zetia 10 mg daily. SOCIAL HISTORY: He is , lives with his . Active smoker. Socially drinks. Still smokes 8 to 10 cigarettes daily. REVIEW OF SYSTEMS: Significant for having Woods catheter that was perhaps in while he was in emergency room and having blood in the urine. Deep red urine in the Woods catheter bag. PHYSICAL EXAMINATION: GENERAL: He is awake, alert, oriented, communicative. VITAL SIGNS: He is afebrile. Pulse 54, respirations 20, blood pressure 110/68. LUNGS: Bilateral fair airflow. No rhonchi or crackle. HEART: S1 and S2 audible. ABDOMEN: Soft, nontender. No rebound. No guarding. NEUROLOGIC: Patient is awake and alert, communicative. LABORATORY EXAMINATION: WBC 10.3, hemoglobin , hematocrit 37.6. Platelets 277. Chemistries: Sodium 140, potassium 4.2, chloride 104, CO2 22, BUN 14, creatinine 0.6, blood sugar 139. Urine shows positive nitrites moderate leukocyte. ASSESSMENT: 1. Pancho hematuria. 2. Status post transurethral GreenLight laser prostatic resection. 3. Coronary artery disease, status post angioplasty. 4. History of hypertension. 5. Chronic obstructive pulmonary disease. 6. Hyperlipidemia. 7. Active smoker. PLAN: Patient will be admitted to Med-Surg. Continue bladder irrigation. We will hold aspirin and Plavix. Resume all his medications. Follow up H and H and CBC in a.m. Start him on Rocephin. Dr. Rebolledo for consult. We will order one CBC for 8:00 tonight. Cindy Burgess MD
[2017-09-20 07:32] LABS: BASO # 0.01 K/mm3 (0.0-2.0); BASO % 0.1 % (0.0-3.0); GRAN # 14.02 (1.4-6.5); GRAN % 89.1 % (50.0-68.0); HEMOGLOBIN 10.5 g/dL (14.0-18.0); LYMPH # 0.7 (1.2-3.4); LYMPH % 4.4 % (22.0-35.0); MEAN CELL VOLUME 87.2 fl (80.0-105.0); MEAN CORPUSCULAR HEMOGLOBIN 28.6 pg (25.0-35.0); MEAN CORPUSCULAR HGB CONC 32.8 g/dl (31.0-37.0); MEAN PLATELET VOLUME 9.4 fl (7.0-11.0); MONO % 6.4 % (1.0-6.0); PLATELET COUNT 252 10^3/uL (120.0-450.0); RBC 3.67 10^6/uL (3.5-6.1); WHITE BLOOD COUNT 15.7 10^3/ul (4.5-11.0)
[2017-09-20 07:57] LABS: ALB/GLOB RATIO 1.3 (1.1-1.8); ALBUMIN 3.7 g/dL (3.0-4.8); ALT/SGPT 22 U/L (7-56); AST/SGOT 30 U/L (17-59); BLOOD UREA NITROGEN 21 mg/dL (7-21); CALCIUM 8.8 mg/dL (8.4-10.5); GFR AFRICAN-AMERICAN > 60; GFR NON-AFRICAN AMERICAN > 60
[2017-09-20 08:25] LABS: LYMPHOCYTE 5 % (22.0-35.0); MONOCYTE 4 % (1.0-6.0); MYELOCYTE 2 %; NEUTROPHIL 89 % (50.0-70.0); PLATELET ESTIMATE NORMAL (NORMAL)
[2017-09-20] MEDS: cefTRIAXone 1 gm 1 GM/100 ML BAG IVPB SCH (09:55)
[2017-09-20] MEDS ORDERED: Propofol 10 mg/ml Inj (20 ML) ONE (10:13)
[2017-09-20] MEDS ORDERED: Lidocaine 1% Inj (20ml) ONE (10:13)
--- NOTE | 2017-09-20 10:20 | CP.PCM.CON ---
History of Present Illness - History of Present Illness History of Present Illness: Awake,lying in bed, denies chest pain,denies shortness of breath Reason for consultation: Cardiac evaluation, coronary artery disease, post stents, Brief history of present illness:A 66 year old male who came in to the ER due to hematuria and urinary retention. Patient had a recent transurethral laser prostatic resection which veliz catheter was in place and was discontinued a week ago. He also restarted his dose of plavix. He noticed hematuria in his urine but able to urinate however progressed to scanty urine with lower abdominal pain thus came to ER. History of CAD, CABG in 2001,multiple stents and recent was 03/03,hypertension, hyperlipidemia, COPD, anxiety, recurrent UTI,BPH, appendectomy,current smoker. Seen and examined by me and Dr. Deleon Review of Systems - Review of Systems Review of Systems: Cooperative,anxious - Constitutional Constitutional: As Per HPI - Cardiovascular Cardiovascular: As Per HPI Additional comments: denies chest pain,denies shortness of breath - Respiratory Additional comments: denies dyspnea on exertion - Gastrointestinal Additional comments: denies problems - Genitourinary Genitourinary: Difficulty Urinating, Hematuria, Freq UTI, Hx /Renal Surgery, Bladder Distension - Neurological Additional comments: denies any problems - Psychiatric Psychiatric: Anxiety - Endocrine Additional Comments: denies any problems Past Patient History - Infectious Disease Hx of Infectious Diseases: None - Tetanus Immunizations Tetanus Immunization: Unknown - Past Social History Smoking Status: Heavy Smoker > 10 Cigarettes Daily - CARDIAC Hx Cardiac Disorders: Yes (mi, cabg 2 2001) Hx Hypercholesterolemia: Yes Hx Hypertension: Yes - PULMONARY Hx Respiratory Disorders: Yes - NEUROLOGICAL Hx Neurological Disorder: No - HEENT Hx HEENT Problems: Yes Other/Comment: TINNITUS - RENAL Hx Kidney Stones: Yes - ENDOCRINE/METABOLIC Hx Endocrine Disorders: No - HEMATOLOGICAL/ONCOLOGICAL Hx Blood Disorders: No - INTEGUMENTARY Hx Dermatological Problems: No - MUSCULOSKELETAL/RHEUMATOLOGICAL Hx Falls: No - GASTROINTESTINAL Hx Gastrointestinal Disorders: Yes (APPENDECTOMY) - GENITOURINARY/GYNECOLOGICAL Hx Genitourinary Disorders: Yes (URINARY RETENTION) Hx Hematuria: Yes Hx Prostate Problems: Yes (bph) Hx Urinary Tract Infection: Yes Other/Comment: VELIZ - PSYCHIATRIC Hx Psychophysiologic Disorder: Yes Hx Anxiety: Yes - SURGICAL HISTORY Hx Surgeries: Yes Hx Appendectomy: Yes Hx Cardiac Catheterization: Yes (10/30/14/& 12/13/15) Hx Coronary Stent: Yes (ptca x5 stents total last one 02/2017) Hx Orthopedic Surgery: Yes (b/l arthoscopic cartilage removal) Other/Comment: PROSTATE SURGERY, turp green light laser 08/24/17, tonsillectomy - ANESTHESIA Hx Anesthesia Reactions: No Hx Malignant Hyperthermia: No Meds Allergies/Adverse Reactions: Allergies Allergy/AdvReac Type Severity Reaction Status Date / Time No Known Allergies Allergy Verified 09/04/17 11:44 - Medications Medications: Current Medications Alprazolam (Xanax) 0.25 mg PO TID PRN; Protocol PRN Reason: Anxiety Stop: 09/26/17 18:05 Last Admin: 09/19/17 23:48 Dose: 0.25 mg Atorvastatin Calcium (Lipitor) 40 mg PO DAILY [facility] Last Admin: 09/20/17 10:12 Dose: Not Given Sodium Chloride (Sodium Chloride 0.9%) 1,000 mls @ 100 mls/hr IV .Q10H [facility] Last Admin: 09/20/17 04:48 Dose: 100 mls/hr Ceftriaxone Sodium (Rocephin 1 Gram Ivpb) 1 gm in 100 mls @ 100 mls/hr IVPB DAILY [facility] PRN Reason: Protocol Last Admin: 09/20/17 09:55 Dose: 100 mls/hr Metoprolol Tartrate (Lopressor) 50 mg PO BID [facility] Last Admin: 09/20/17 09:56 Dose: 50 mg Morphine Sulfate (Morphine) 4 mg IVP Q4H PRN PRN Reason: Pain, severe (8-10) Last Admin: 09/20/17 04:47 Dose: 4 mg Ramipril (Altace) 1.25 mg PO DAILY [facility] Last Admin: 09/20/17 10:12 Dose: Not Given Tamsulosin HCl (Flomax) 0.4 mg PO DAILY [facility] Last Admin: 09/20/17 10:12 Dose: Not Given Physical Exam - Constitutional Appears: No Acute Distress - Head Exam Head Exam: NORMOCEPHALIC - Eye Exam Eye Exam: Normal appearance - ENT Exam ENT Exam: Mucous Membranes Moist - Respiratory Exam Respiratory Exam: Clear to Auscultation Bilateral, NORMAL BREATHING PATTERN - Cardiovascular Exam Cardiovascular Exam: +S1, +S2 - GI/Abdominal Exam GI & Abdominal Exam: Normal Bowel Sounds, Soft - Exam Additional comments: veliz catheter, hematuria - Extremities Exam Extremities exam: Positive for: normal capillary refill - Neurological Exam Neurological exam: Alert, Oriented x3 - Psychiatric Exam Psychiatric exam: Anxious - Skin Skin Exam: Intact, Normal Color, Warm Results - Vital Signs Recent Vital Signs: Last Vital Signs Temp 98 F 09/20/17 07:48 Pulse 95 H 09/20/17 09:56 Resp 20 09/20/17 07:48 BP 134/77 09/20/17 09:56 Pulse Ox 96 09/20/17 07:48 - Labs Result Diagrams: 09/20/17 07:00 09/20/17 07:00 Labs: Laboratory Results - last 24 hr 09/19/17 09/20/17 09/20/17 19:35 07:00 07:00 WBC 14.6 H D 15.7 H RBC 3.64 3.67 Hgb 10.5 L D 10.5 L Hct 31.6 L 32.0 L MCV 86.8 87.2 MCH 28.8 28.6 MCHC 33.2 32.8 RDW 13.8 14.0 Plt Count 214 252 MPV 8.9 9.4 Gran % 89.1 H Lymph % (Auto) 4.4 L Stone % (Auto) 6.4 H Eos % (Auto) 0.0 L Baso % (Auto) 0.1 Gran # 14.02 H Lymph # (Auto) 0.7 L [place] # (Auto) 1.0 H Eos # (Auto) 0.0 Baso # (Auto) 0.01 Neutrophils % (Manual) 89 H Lymphocytes % (Manual) 5 L Monocytes % (Manual) 4 Myelocytes % 2 Platelet Evaluation Normal Sodium 142 Potassium 4.7 Chloride 106 Carbon Dioxide 25 Anion Gap 15 BUN 21 Creatinine 1.0 Est GFR ( Amer) > 60 Est GFR (Non-Af Amer) > 60 Random Glucose 152 H Calcium 8.8 Total Bilirubin 0.3 AST 30 ALT 22 Alkaline Phosphatase 67 Total Protein 6.6 Albumin 3.7 Globulin 2.8 Albumin/Globulin Ratio 1.3 Assessment & Plan - Assessment and Plan (Free Text) Assessment: A 66 year old male who came in to the ER due to hematuria and urinary retention. Patient had a recent transurethral laser prostatic resection which veliz catheter was in place and was discontinued a week ago. He also restarted his dose of plavix. He noticed hematuria in his urine but able to urinate however progressed to scanty urine with lower abdominal pain thus came to ER. History of CAD, CABG in 2001,multiple stents and recent was 03/03,hypertension, hyperlipidemia, COPD, anxiety, recurrent UTI,BPH, appendectomy,current smoker. Review of cardiac work up: 02/25/17 Admitted at that time due to unstable angina. Cardiac catheterization was done and OSEI to LAD was patent, SVG to RCA has two stents and patent however distal to the stent has 90 % stenosis and a stent was placed at that time. Patient was put on aspirin and plavix for at least a year. Plan: Patient well known to service, PTCA of SVG to RCA was done last 03/03 and patient was put on aspirin and plavix. Aspirin and plavix was stopped prior to the prostate laser resection however reastarted 3 days ago post removal of veliz catheter. Hematuria post transurethral laser prostatic resection Patient going to OR for cystoscopy Clear for procedure with moderate risk Hold aspirin and plavix On Lipitor 40 mg daily,Lopressor 50 mg BID,Altace 1.25 mg daily Stable BP and heart rate Continue current medications Continue current treatment Will follow up Thank you for giving us the opportunity to take care of Mr. Jovan Mirzanehajosh - Date & Time Date: 09/20/17 Time: 07:20
[2017-09-20] MEDS ORDERED: ePHEDrine 50 mg/ml Inj ONE (10:41)
[2017-09-20] MEDS ORDERED: Liquid Adhesive TOP ONE (11:05)
[2017-09-20] MEDS ORDERED: HYDROmorphone 0.5 mg/0.5 ml ISec IVP PRN (11:17)
[2017-09-20] MEDS ORDERED: HYDROmorphone 0.5 mg/0.5 ml ISec IVP ONE (11:29)
[2017-09-20] MEDS ORDERED: HYDROmorphone 0.5 mg/0.5 ml ISec ONE (11:29)
[2017-09-20] MEDS ORDERED: Lactated Ringer's 1,000 ML IV SCH (11:30)
--- NOTE | 2017-09-20 15:18 | CARD ---
APPROVED REPORT EKG Measurement Heart [id number] <Conclusion> Normal sinus rhythm Nonspecific ST and T wave abnormality Abnormal ECG
[2017-09-20] MEDS ORDERED: Sodium Chloride 0.9% 500 ML IV STA (22:36)
[2017-09-20 22:52] LABS: BASO # 0.02 K/mm3 (0.0-2.0); BASO % 0.2 % (0.0-3.0); EOS # 0.3 (0.0-0.7); EOS % 2.5 % (1.5-5.0); GRAN # 8.45 (1.4-6.5); GRAN % 72.6 % (50.0-68.0); LYMPH # 1.8 (1.2-3.4); LYMPH % 15.5 % (22.0-35.0); MEAN CORPUSCULAR HEMOGLOBIN 29.5 pg (25.0-35.0); MEAN CORPUSCULAR HGB CONC 33.5 g/dl (31.0-37.0); MEAN PLATELET VOLUME 8.6 fl (7.0-11.0); MONO # 1.1 (0.1-0.6); MONO % 9.2 % (1.0-6.0); RBC 2.75 10^6/uL (3.5-6.1); RED CELL DISTRIBUTION WIDTH 14.4 % (11.5-14.5); WHITE BLOOD COUNT 11.6 10^3/ul (4.5-11.0)
[2017-09-20 22:56] LABS: HEMOGLOBIN 8.1 g/dL (14.0-18.0)
[2017-09-20 23:03] LABS: ALB/GLOB RATIO 1.2 (1.1-1.8); ALBUMIN 2.6 g/dL (3.0-4.8); ALT/SGPT 25 U/L (7-56); AST/SGOT 28 U/L (17-59); BLOOD UREA NITROGEN 17 mg/dL (7-21); GFR AFRICAN-AMERICAN > 60; GFR NON-AFRICAN AMERICAN > 60
--- NOTE | 2017-09-20 23:38 | PN ---
DATE: 09/20/2017 HISTORY OF PRESENT ILLNESS: Mr. Lomeli is a 66-year-old male admitted to the hospital with hematuria. He has laser ablation of prostate a few weeks ago. He was admitted with similar complaint a few weeks ago. He was started on aspirin and Plavix for coronary artery disease and started having hematuria again. He denies any nausea or vomiting. No chills, no rigors. PAST MEDICAL HISTORY: Hypertension, coronary artery disease, anxiety, COPD, recurrent hematuria after prostatic surgery. ALLERGIES: NO KNOWN DRUG ALLERGIES. HOME MEDICATIONS: Xanax, Plavix, aspirin, Lipitor, Flomax, ramipril, metoprolol, and Zetia. SOCIAL HISTORY: , lives with his . PERSONAL HISTORY: Active smoker. Drinks socially. REVIEW OF SYSTEMS: As per HPI. Rest of 12-point review of systems reviewed, negative. PHYSICAL EXAMINATION: GENERAL: Awake, alert, oriented. VITAL SIGNS: Afebrile, heart rate is 54 per minute, respiratory rate 18 per minute, blood pressure 110/70. LUNGS: Air entry present and equal bilaterally. No added sounds. CARDIOVASCULAR: S1 and S2 normal. No murmur. No gallop. ABDOMEN: Soft, nontender. No hepatosplenomegaly. GENITOURINARY: Woods catheter in place, draining red-color urine, no apparent clots. NEUROLOGIC: Awake, alert, oriented x3. No focal sensory or motor deficits. LABORATORY DATA: White count 15.7, hemoglobin 10.5, hematocrit 32, platelet count 252. Sodium 142, potassium 4.7, BUN 21, creatinine 1. Bilirubin 0.3, AST 30, ALT 22, alkaline phosphatase 67. ASSESSMENT: 1. Hematuria. 2. Status post prostatic ablation. 3. Coronary artery disease. 4. Leukocytosis. 5. Anemia. PLAN: He is scheduled for cystoscopy today with Dr. Rebolledo to rule out the source of bleeding. If hematuria continues, he will need platelet transfusion because of the functional platelet defect due to aspirin, Plavix use. I discussed this with Mr. Lomeli. He declined platelet transfusion today, he said he will consider tomorrow if he still has bloody urine. We will continue to monitor the blood counts. Urine culture negative. We will continue Lipitor 40 mg daily and ceftriaxone 1 g daily. We will continue morphine p.r.n. for pain, Protonix daily, IV fluid at 100 mL an hour. Continue Flomax 0.4 mg daily. Josefina Will MD
[2017-09-21] MEDS ORDERED: Sodium Chloride 0.9% 1,000 ML IV STA ×3 (00:04→03:12)
--- NOTE | 2017-09-21 00:05 | CP.PCM.CON ---
<Charlie Alonso - Last Filed: 09/21/17 06:14> History of Present Illness - History of Present Illness History of Present Illness: ICU Consult Note: Reason: Hypotension & Anemia 66 M with PMHx of CAD s/p CABG and stents (most recent 03/03), hypertension, hyperlipidemia, Anxiety, COPD, BPH, presents to the ED with hematuria and urinary retention. Patient had a recent transurethral laser prostatic resection which asa and plavix was hekd and resumed aprox 3 weeks post procedure. The patient than developed hematuria and some retention which prompted him to the hospital. Today the patient went for a cystoscopy with removal of clot. Urology and cardiology following. ICU consulted for hypotension 91/51 and Hb of 8.1 (from 10.5). PMH: as above PSH: CABG in 2001, multiple stents , appendectomy, transurethral laser prostatic resection Med: refer to [facility] ALL: NKA SH: Active smoker, denies any ETOH, or drinking FH: denies Review of Systems - Review of Systems All systems: reviewed and no additional remarkable complaints except (HPI) Past Patient History - Infectious Disease Hx of Infectious Diseases: None - Tetanus Immunizations Tetanus Immunization: Unknown - Past Social History Smoking Status: Heavy Smoker > 10 Cigarettes Daily - CARDIAC Hx Cardiac Disorders: Yes (mi, cabg 2 2001) Hx Hypercholesterolemia: Yes Hx Hypertension: Yes - PULMONARY Hx Respiratory Disorders: Yes - NEUROLOGICAL Hx Neurological Disorder: No - HEENT Hx HEENT Problems: Yes Other/Comment: TINNITUS - RENAL Hx Kidney Stones: Yes - ENDOCRINE/METABOLIC Hx Endocrine Disorders: No - HEMATOLOGICAL/ONCOLOGICAL Hx Blood Transfusions: No Hx Blood Transfusion Reaction: No - INTEGUMENTARY Hx Dermatological Problems: No - MUSCULOSKELETAL/RHEUMATOLOGICAL Hx Falls: No - GASTROINTESTINAL Hx Gastrointestinal Disorders: Yes (APPENDECTOMY) - GENITOURINARY/GYNECOLOGICAL Hx Genitourinary Disorders: Yes (URINARY RETENTION) Hx Hematuria: Yes Hx Prostate Problems: Yes (bph) Hx Urinary Tract Infection: Yes Other/Comment: VELIZ - PSYCHIATRIC Hx Psychophysiologic Disorder: Yes Hx Anxiety: Yes - SURGICAL HISTORY Hx Surgeries: Yes - ANESTHESIA Hx Anesthesia Reactions: No Hx Malignant Hyperthermia: No Meds Allergies/Adverse Reactions: Allergies Allergy/AdvReac Type Severity Reaction Status Date / Time No Known Allergies Allergy Verified 09/04/17 11:44 - Medications Medications: Current Medications Alprazolam (Xanax) 0.25 mg PO TID PRN; Protocol PRN Reason: Anxiety Stop: 09/26/17 18:05 Last Admin: 09/20/17 21:44 Dose: 0.25 mg Atorvastatin Calcium (Lipitor) 40 mg PO DAILY [facility] Last Admin: 09/20/17 12:59 Dose: 40 mg Sodium Chloride (Sodium Chloride 0.9%) 1,000 mls @ 100 mls/hr IV .Q10H [facility] Last Admin: 09/20/17 21:49 Dose: Not Given Ceftriaxone Sodium (Rocephin 1 Gram Ivpb) 1 gm in 100 mls @ 100 mls/hr IVPB DAILY [facility] PRN Reason: Protocol Last Admin: 09/20/17 09:55 Dose: 100 mls/hr Sodium Chloride (Sodium Chloride 0.9%) 1,000 mls @ 999 mls/hr IV .Q1H1M STA Stop: 09/21/17 01:04 Metoprolol Tartrate (Lopressor) 50 mg PO BID [facility] Last Admin: 09/20/17 18:28 Dose: 50 mg Morphine Sulfate (Morphine) 4 mg IVP Q4H PRN PRN Reason: Pain, severe (8-10) Last Admin: 09/20/17 16:35 Dose: 4 mg Nicotine (Nicoderm Cq) 1 patch TD DAILY [facility] Ondansetron HCl (Zofran Inj) 4 mg IVP ONCE PRN PRN Reason: Nausea/Vomiting Pantoprazole Sodium (Protonix Inj) 40 mg IVP BID [facility] Last Admin: 09/20/17 18:28 Dose: 40 mg Ramipril (Altace) 1.25 mg PO DAILY [facility] Last Admin: 09/20/17 12:59 Dose: 1.25 mg Tamsulosin HCl (Flomax) 0.4 mg PO DAILY [facility] Last Admin: 09/20/17 12:59 Dose: 0.4 mg Physical Exam - Constitutional Appears: No Acute Distress - Head Exam Head Exam: ATRAUMATIC, NORMOCEPHALIC - Eye Exam Eye Exam: EOMI, PERRL Pupil Exam: NORMAL ACCOMODATION - ENT Exam ENT Exam: Mucous Membranes Moist - Respiratory Exam Respiratory Exam: Clear to Auscultation Bilateral. absent: Rales, Wheezes - Cardiovascular Exam Cardiovascular Exam: REGULAR RHYTHM, RRR, +S1, +S2 - GI/Abdominal Exam GI & Abdominal Exam: Normal Bowel Sounds, Soft. absent: Tenderness - Extremities Exam Extremities exam: Negative for: calf tenderness, pedal edema - Neurological Exam Neurological exam: Alert, CN II-XII Intact, Oriented x3 - Psychiatric Exam Psychiatric exam: Normal Affect, Normal Mood Results - Vital Signs Recent Vital Signs: Last Vital Signs Temp 97.8 F 09/20/17 14:00 Pulse 70 09/20/17 23:28 Resp 19 09/20/17 23:28 BP 95/57 L 09/20/17 23:28 Pulse Ox 99 09/20/17 14:00 - Labs Result Diagrams: 09/20/17 22:47 09/20/17 22:47 Labs: Laboratory Results - last 24 hr 09/20/17 09/20/17 09/20/17 07:00 07:00 22:47 WBC 15.7 H 11.6 H D RBC 3.67 2.75 L Hgb 10.5 L 8.1 L D Hct 32.0 L 24.2 L MCV 87.2 88.0 MCH 28.6 29.5 MCHC 32.8 33.5 RDW 14.0 14.4 Plt Count 252 185 MPV 9.4 8.6 Gran % 89.1 H 72.6 H Lymph % (Auto) 4.4 L 15.5 L [place] % (Auto) 6.4 H 9.2 H Eos % (Auto) 0.0 L 2.5 Baso % (Auto) 0.1 0.2 Gran # 14.02 H 8.45 H Lymph # (Auto) 0.7 L 1.8 [place] # (Auto) 1.0 H 1.1 H Eos # (Auto) 0.0 0.3 Baso # (Auto) 0.01 0.02 Neutrophils % (Manual) 89 H Lymphocytes % (Manual) 5 L Monocytes % (Manual) 4 Myelocytes % 2 Platelet Evaluation Normal Sodium 142 Potassium 4.7 Chloride 106 Carbon Dioxide 25 Anion Gap 15 BUN 21 Creatinine 1.0 Est GFR ( Amer) > 60 Est GFR (Non-Af Amer) > 60 Random Glucose 152 H Calcium 8.8 Total Bilirubin 0.3 AST 30 ALT 22 Alkaline Phosphatase 67 Total Protein 6.6 Albumin 3.7 Globulin 2.8 Albumin/Globulin Ratio 1.3 Blood Type Antibody Screen BBK History Checked 09/20/17 09/20/17 22:47 22:47 WBC RBC Hgb Hct MCV MCH MCHC RDW Plt Count MPV Gran % Lymph % (Auto) [place] % (Auto) Eos % (Auto) Baso % (Auto) Gran # Lymph # (Auto) [place] # (Auto) Eos # (Auto) Baso # (Auto) Neutrophils % (Manual) Lymphocytes % (Manual) Monocytes % (Manual) Myelocytes % Platelet Evaluation Sodium 142 Potassium 4.2 Chloride 109 H Carbon Dioxide 27 Anion Gap 11 BUN 17 Creatinine 0.8 Est GFR ( Amer) > 60 Est GFR (Non-Af Amer) > 60 Random Glucose 116 H Calcium 8.0 L Total Bilirubin < 0.1 L AST 28 ALT 25 Alkaline Phosphatase 52 Total Protein 4.8 L Albumin 2.6 L Globulin 2.2 Albumin/Globulin Ratio 1.2 Blood Type O POSITIVE Antibody Screen Negative BBK History Checked Patient has bt Assessment & Plan - Assessment and Plan (Free Text) Assessment: 66 M with PMHx of CAD s/p CABG and stents (most recent 03/03), hypertension, hyperlipidemia, Anxiety, COPD, BPH, presents to the ED with hematuria and urinary retention. S/p cystoscopy with removal of clot POD 1. ICU consulted for hypotension 91/51 and Hb of 8.1 (from 10.5). - Patient currently asymptomatic with no complaints - Patient is hemodynamically stable with last BP of 108/63 and HR of 77 saturating 99% on RA - 500ml NS bolus already administered - Another 1 L bolus of NS ordered - Recommended transfusing 2 units of PRBC - Hb of 8.1 - Monitor H/H, with post transfusion CBC - Currently off of anticoagulation - Will monitor closely Patient is currently hemodynamically stable and does not require ICU level of care at this time. Will sign off. Please reconsult as needed. Case and plan was reviewed and discussed in detail with Dr Solano. <Xiomara RIOS,Raymundo - Last Filed: 09/21/17 13:09> Meds - Medications Medications: Current Medications Alprazolam (Xanax) 0.25 mg PO TID PRN; Protocol PRN Reason: Anxiety Stop: 09/26/17 18:05 Last Admin: 09/21/17 05:21 Dose: 0.25 mg Atorvastatin Calcium (Lipitor) 40 mg PO DAILY [facility] Last Admin: 09/21/17 09:29 Dose: 40 mg Sodium Chloride (Sodium Chloride 0.9%) 1,000 mls @ 100 mls/hr IV .Q10H [facility] Last Admin: 09/21/17 12:36 Dose: 100 mls/hr Ceftriaxone Sodium (Rocephin 1 Gram Ivpb) 1 gm in 100 mls @ 100 mls/hr IVPB DAILY [facility] PRN Reason: Protocol Last Admin: 09/21/17 09:29 Dose: 100 mls/hr Metoprolol Tartrate (Lopressor) 50 mg PO BID [facility] Last Admin: 09/21/17 09:31 Dose: Not Given Morphine Sulfate (Morphine) 4 mg IVP Q4H PRN PRN Reason: Pain, severe (8-10) Last Admin: 09/21/17 09:28 Dose: 4 mg Nicotine (Nicoderm Cq) 1 patch TD DAILY [facility] Last Admin: 09/21/17 09:30 Dose: 1 patch Ondansetron HCl (Zofran Inj) 4 mg IVP ONCE PRN PRN Reason: Nausea/Vomiting Pantoprazole Sodium (Protonix Inj) 40 mg IVP BID [facility] Last Admin: 09/21/17 09:29 Dose: 40 mg Ramipril (Altace) 1.25 mg PO DAILY [facility] Last Admin: 09/21/17 09:30 Dose: Not Given Tamsulosin HCl (Flomax) 0.4 mg PO DAILY [facility] Last Admin: 09/21/17 09:30 Dose: 0.4 mg Results - Vital Signs Recent Vital Signs: Last Vital Signs Temp 97.8 F 09/21/17 07:00 Pulse 73 09/21/17 09:31 Resp 20 09/21/17 07:00 BP 109/56 L 09/21/17 09:31 Pulse Ox 95 09/21/17 07:00 - Labs Result Diagrams: 09/21/17 08:25 09/20/17 22:47 Labs: Laboratory Results - last 24 hr 09/20/17 09/20/17 09/20/17 22:47 22:47 22:47 WBC 11.6 H D RBC 2.75 L Hgb 8.1 L D Hct 24.2 L MCV 88.0 MCH 29.5 MCHC 33.5 RDW 14.4 Plt Count 185 MPV 8.6 Gran % 72.6 H Lymph % (Auto) 15.5 L [place] % (Auto) 9.2 H Eos % (Auto) 2.5 Baso % (Auto) 0.2 Gran # 8.45 H Lymph # (Auto) 1.8 [place] # (Auto) 1.1 H Eos # (Auto) 0.3 Baso # (Auto) 0.02 Sodium 142 Potassium 4.2 Chloride 109 H Carbon Dioxide 27 Anion Gap 11 BUN 17 Creatinine 0.8 Est GFR ( Amer) > 60 Est GFR (Non-Af Amer) > 60 Random Glucose 116 H Calcium 8.0 L Total Bilirubin < 0.1 L AST 28 ALT 25 Alkaline Phosphatase 52 Total Protein 4.8 L Albumin 2.6 L Globulin 2.2 Albumin/Globulin Ratio 1.2 Blood Type O POSITIVE Antibody Screen Negative Crossmatch See Detail BBK History Checked Patient has bt 09/21/17 08:25 WBC 9.5 RBC 3.11 L Hgb 9.3 L Hct 27.3 L MCV 87.8 MCH 29.9 MCHC 34.1 RDW 14.4 Plt Count 169 MPV 9.1 Gran % 70.5 H Lymph % (Auto) 14.3 L [place] % (Auto) 10.6 H Eos % (Auto) 4.4 Baso % (Auto) 0.2 Gran # 6.70 H Lymph # (Auto) 1.4 [place] # (Auto) 1.0 H Eos # (Auto) 0.4 Baso # (Auto) 0.02 Sodium Potassium Chloride Carbon Dioxide Anion Gap BUN Creatinine Est GFR ( Amer) Est GFR (Non-Af Amer) Random Glucose Calcium Total Bilirubin AST ALT Alkaline Phosphatase Total Protein Albumin Globulin Albumin/Globulin Ratio Blood Type Antibody Screen Crossmatch BBK History Checked Attending/Attestation - Attestation I have personally seen and examined this patient.: Yes I have fully participated in the care of the patient.: Yes I have reviewed all pertinent clinical information: Yes Notes (Text): -I agree with the above ICU consult note completed by the resident physician. The patient doesn't require ICU level of care at this time, as his BP's normalized after receiving blood and IVF boluses. Please re-consult if his condition deteriorates or changes. Thank you. -Critical Care Time Spent: 30-40 minutes
[2017-09-21 07:31] VITALS: RESP 20
--- NOTE | 2017-09-21 08:04 | PCM.URO ---
Urology Progress Note - Objective Lab Studies: Reviewed (gu : spoke with nurses several times pt now less dizzy , vs noted, above records noted pt did bleed , seems to be letting up , plans : lower cbi rate monitor closely) Lab Results Last 24 Hours: Laboratory Results - last 24 hr 09/20/17 09/20/17 09/20/17 07:00 22:47 22:47 WBC 11.6 H D RBC 2.75 L Hgb 8.1 L D Hct 24.2 L MCV 88.0 MCH 29.5 MCHC 33.5 RDW 14.4 Plt Count 185 MPV 8.6 Gran % 72.6 H Lymph % (Auto) 15.5 L [place] % (Auto) 9.2 H Eos % (Auto) 2.5 Baso % (Auto) 0.2 Gran # 8.45 H Lymph # (Auto) 1.8 [place] # (Auto) 1.1 H Eos # (Auto) 0.3 Baso # (Auto) 0.02 Neutrophils % (Manual) 89 H Lymphocytes % (Manual) 5 L Monocytes % (Manual) 4 Myelocytes % 2 Platelet Evaluation Normal Sodium 142 Potassium 4.2 Chloride 109 H Carbon Dioxide 27 Anion Gap 11 BUN 17 Creatinine 0.8 Est GFR ( Amer) > 60 Est GFR (Non-Af Amer) > 60 Random Glucose 116 H Calcium 8.0 L Total Bilirubin < 0.1 L AST 28 ALT 25 Alkaline Phosphatase 52 Total Protein 4.8 L Albumin 2.6 L Globulin 2.2 Albumin/Globulin Ratio 1.2 Blood Type Antibody Screen Crossmatch BBK History Checked 09/20/17 22:47 WBC RBC Hgb Hct MCV MCH MCHC RDW Plt Count MPV Gran % Lymph % (Auto) [place] % (Auto) Eos % (Auto) Baso % (Auto) Gran # Lymph # (Auto) [place] # (Auto) Eos # (Auto) Baso # (Auto) Neutrophils % (Manual) Lymphocytes % (Manual) Monocytes % (Manual) Myelocytes % Platelet Evaluation Sodium Potassium Chloride Carbon Dioxide Anion Gap BUN Creatinine Est GFR ( Amer) Est GFR (Non-Af Amer) Random Glucose Calcium Total Bilirubin AST ALT Alkaline Phosphatase Total Protein Albumin Globulin Albumin/Globulin Ratio Blood Type O POSITIVE Antibody Screen Negative Crossmatch See Detail BBK History Checked Patient has bt Intake & Output: Intake & Output 05/11/0209/21/17 09/21/17 18:59 06:59 18:59 Intake Total 59208 6920 Output Total 61861 35803 Balance 330 -55776 Intake: IV 500 Right Forearm 500 Oral 420 240 Blood Product 650 Red Blood Cells Cpd As1 325 Lr Unit [id number] Red Blood Cells Cpd As1 325 Lr Unit [id number] Other 69585 6030 Red Blood Cells Cpd As1 30 Lr Unit [id number] Output: Urine 14137 09517 Urethral ([place]) 30168 06415 Vital Signs: Vital Signs - 24 hr 09/20/17 09/20/17 09/20/17 09:56 11:15 11:30 Temperature 97.7 F 97.7 F Pulse Rate 95 H 98 H 92 H Respiratory 20 20 Rate Blood Pressure 134/77 130/87 140/79 O2 Sat by Pulse 100 98 Oximetry 09/20/17 09/20/17 09/20/17 11:45 12:59 13:03 Temperature 97.7 F 97.7 F Pulse Rate 88 87 Respiratory 20 20 Rate Blood Pressure 131/81 112/70 112/70 O2 Sat by Pulse 99 97 Oximetry 09/20/17 09/20/17 09/20/17 14:00 18:28 23:00 Temperature 97.8 F Pulse Rate 78 87 71 Respiratory 20 18 Rate Blood Pressure 114/75 112/70 91/51 L O2 Sat by Pulse 99 Oximetry 09/20/17 09/21/17 09/21/17 23:28 00:00 00:40 Temperature 98.3 F Pulse Rate 70 79 Respiratory 19 20 Rate Blood Pressure 95/57 L 98/54 L 100/57 L O2 Sat by Pulse 98 Oximetry 09/21/17 09/21/17 09/21/17 01:11 01:33 02:18 Temperature 98.9 F 97.9 F 98.6 F Pulse Rate 68 77 78 Respiratory 19 18 18 Rate Blood Pressure 103/58 L 97/54 L 96/56 L O2 Sat by Pulse Oximetry 09/21/17 09/21/17 09/21/17 03:00 03:33 04:35 Temperature 98 F 98.3 F Pulse Rate 70 73 Respiratory 18 19 19 Rate Blood Pressure 88/56 L 96/54 L 104/85 O2 Sat by Pulse 99 Oximetry 09/21/17 09/21/17 09/21/17 04:54 05:39 06:23 Temperature 97.8 F 97.9 F 98.2 F Pulse Rate 72 77 74 Respiratory 20 20 18 Rate Blood Pressure 109/60 108/63 110/66 O2 Sat by Pulse Oximetry 09/21/17 07:00 Temperature 97.8 F Pulse Rate 75 Respiratory 20 Rate Blood Pressure 109/60 O2 Sat by Pulse 95 Oximetry
--- NOTE | 2017-09-21 08:06 | CP.PCM.PN ---
Subjective - Date & Time of Evaluation Date of Evaluation: 09/21/17 Time of Evaluation: 06:45 - Subjective Subjective: Lying in bed, sleeping but easily awaken,denies chest pain,denies shortness of breath Reason for consultation: Cardiac evaluation, coronary artery disease, post stents, Seen and examined by me and Dr. Mcduffie Objective - Vital Signs/Intake and Output Vital Signs (last 24 hours): Temp Pulse Resp BP Pulse Ox 97.8 F 75 20 109/60 95 09/21/17 07:00 09/21/17 07:00 09/21/17 07:00 09/21/17 07:00 09/21/17 07:00 Intake and Output: 09/21/17 09/21/17 06:59 18:59 Intake Total 6920 Output Total 69383 Balance -71012 - Medications Medications: Current Medications Alprazolam (Xanax) 0.25 mg PO TID PRN; Protocol PRN Reason: Anxiety Stop: 09/26/17 18:05 Last Admin: 09/21/17 05:21 Dose: 0.25 mg Atorvastatin Calcium (Lipitor) 40 mg PO DAILY [facility] Last Admin: 09/20/17 12:59 Dose: 40 mg Sodium Chloride (Sodium Chloride 0.9%) 1,000 mls @ 100 mls/hr IV .Q10H [facility] Last Admin: 09/20/17 21:49 Dose: Not Given Ceftriaxone Sodium (Rocephin 1 Gram Ivpb) 1 gm in 100 mls @ 100 mls/hr IVPB DAILY [facility] PRN Reason: Protocol Last Admin: 09/20/17 09:55 Dose: 100 mls/hr Metoprolol Tartrate (Lopressor) 50 mg PO BID [facility] Last Admin: 09/20/17 18:28 Dose: 50 mg Morphine Sulfate (Morphine) 4 mg IVP Q4H PRN PRN Reason: Pain, severe (8-10) Last Admin: 09/20/17 16:35 Dose: 4 mg Nicotine (Nicoderm Cq) 1 patch TD DAILY [facility] Last Admin: 09/21/17 01:09 Dose: 1 patch Ondansetron HCl (Zofran Inj) 4 mg IVP ONCE PRN PRN Reason: Nausea/Vomiting Pantoprazole Sodium (Protonix Inj) 40 mg IVP BID [facility] Last Admin: 09/20/17 18:28 Dose: 40 mg Ramipril (Altace) 1.25 mg PO DAILY [facility] Last Admin: 09/20/17 12:59 Dose: 1.25 mg Tamsulosin HCl (Flomax) 0.4 mg PO DAILY [facility] Last Admin: 09/20/17 12:59 Dose: 0.4 mg - Labs Labs: 09/20/17 22:47 09/20/17 22:47 - Constitutional Appears: No Acute Distress - Head Exam Head Exam: NORMOCEPHALIC - Eye Exam Pupil Exam: NORMAL ACCOMODATION - ENT Exam ENT Exam: Mucous Membranes Moist - Respiratory Exam Respiratory Exam: Clear to Ausculation Bilateral, NORMAL BREATHING PATTERN - Cardiovascular Exam Cardiovascular Exam: +S1, +S2 - Exam Additional comments: guzman with continous bladder irrigation, pinkish output - Extremities Exam Extremities Exam: Normal Capillary Refill - Neurological Exam Neurological Exam: Alert, Awake, Oriented x3 - Psychiatric Exam Psychiatric exam: Normal Affect, Normal Mood - Skin Skin Exam: Intact, Normal Color, Warm Assessment and Plan - Assessment and Plan (Free Text) Assessment: A 66 year old male who came in to the ER due to hematuria and urinary retention. Patient had a recent transurethral laser prostatic resection which guzman catheter was in place and was discontinued a week ago. He also restarted his dose of plavix. He noticed hematuria in his urine but able to urinate however progressed to scanty urine with lower abdominal pain thus came to ER. History of CAD, CABG in 2001,multiple stents and recent was 03/03,hypertension, hyperlipidemia, COPD, anxiety, recurrent UTI,BPH, appendectomy,current smoker. Plan: Post cystoscopy and evacuation of clots yesterday Hematuria post transurethral laser prostatic resection few weeks ago CBI pinkish in color with no blood clots Monitor Hemoglobin and hematocrit closely, dropped tremendously Hold aspirin and plavix On Lipitor 40 mg daily,Lopressor 50 mg BID, Altace 1.25 mg daily Stable BP and heart rate cardiac status stable Continue current medications Continue current treatment Will follow up Plan and treatment discussed with
[2017-09-21 08:26] LABS: BASO # 0.02 K/mm3 (0.0-2.0); BASO % 0.2 % (0.0-3.0); EOS # 0.4 (0.0-0.7); EOS % 4.4 % (1.5-5.0); GRAN # 6.7 (1.4-6.5); GRAN % 70.5 % (50.0-68.0); HEMOGLOBIN 9.3 g/dL (14.0-18.0); LYMPH # 1.4 (1.2-3.4); LYMPH % 14.3 % (22.0-35.0); MEAN CELL VOLUME 87.8 fl (80.0-105.0); MEAN CORPUSCULAR HEMOGLOBIN 29.9 pg (25.0-35.0); MEAN CORPUSCULAR HGB CONC 34.1 g/dl (31.0-37.0); MEAN PLATELET VOLUME 9.1 fl (7.0-11.0); MONO % 10.6 % (1.0-6.0); RBC 3.11 10^6/uL (3.5-6.1); RED CELL DISTRIBUTION WIDTH 14.4 % (11.5-14.5); WHITE BLOOD COUNT 9.5 10^3/ul (4.5-11.0)
[2017-09-21] MEDS: Morphine 4 mg/ml ISec IVP PRN ×2 (09:28→19:00)
[2017-09-21] MEDS: cefTRIAXone 1 gm 1 GM/100 ML BAG IVPB SCH (09:29)
[2017-09-21] MEDS ORDERED: Magnesium Citrate Oral SOL (300 ml) PO ONE (11:35)
[2017-09-21] MEDS: Sodium Chloride 0.9% 1,000 ML IV SCH (12:36)
[2017-09-21 16:54] LABS: HEMOGLOBIN 9.3 g/dL (14.0-18.0); MEAN CELL VOLUME 87.2 fl (80.0-105.0); MEAN CORPUSCULAR HEMOGLOBIN 29.1 pg (25.0-35.0); MEAN CORPUSCULAR HGB CONC 33.3 g/dl (31.0-37.0); MEAN PLATELET VOLUME 8.3 fl (7.0-11.0); RBC 3.2 10^6/uL (3.5-6.1); RED CELL DISTRIBUTION WIDTH 14.3 % (11.5-14.5); WHITE BLOOD COUNT 10.7 10^3/ul (4.5-11.0)
[2017-09-22] MEDS: Morphine 4 mg/ml ISec IVP PRN ×5 (01:34→21:35)
[2017-09-22 07:34] LABS: BASO # 0.03 K/mm3 (0.0-2.0); BASO % 0.2 % (0.0-3.0); EOS # 0.5 (0.0-0.7); EOS % 3.4 % (1.5-5.0); GRAN # 9.77 (1.4-6.5); GRAN % 72.8 % (50.0-68.0); HEMOGLOBIN 10.5 g/dL (14.0-18.0); LYMPH # 1.6 (1.2-3.4); LYMPH % 11.8 % (22.0-35.0); MEAN CELL VOLUME 87.8 fl (80.0-105.0); MEAN CORPUSCULAR HEMOGLOBIN 29.2 pg (25.0-35.0); MEAN CORPUSCULAR HGB CONC 33.2 g/dl (31.0-37.0); MEAN PLATELET VOLUME 9.1 fl (7.0-11.0); MONO # 1.6 (0.1-0.6); MONO % 11.8 % (1.0-6.0); RBC 3.6 10^6/uL (3.5-6.1); RED CELL DISTRIBUTION WIDTH 14.6 % (11.5-14.5); WHITE BLOOD COUNT 13.4 10^3/ul (4.5-11.0)
[2017-09-22 07:54] LABS: ALB/GLOB RATIO 1.3 (1.1-1.8); ALBUMIN 3.4 g/dL (3.0-4.8); ALT/SGPT 25 U/L (7-56); AST/SGOT 30 U/L (17-59); BLOOD UREA NITROGEN 7 mg/dL (7-21); CALCIUM 8.4 mg/dL (8.4-10.5); GFR AFRICAN-AMERICAN > 60; GFR NON-AFRICAN AMERICAN > 60
--- NOTE | 2017-09-22 08:51 | CP.PCM.PN ---
Subjective - Date & Time of Evaluation Date of Evaluation: 09/22/17 Time of Evaluation: 07:00 - Subjective Subjective: Awake,denies chest pain,denies shortness of breath Reason for consultation: Cardiac evaluation, coronary artery disease, post stents, Seen and examined by me and Dr. Mcduffie Objective - Vital Signs/Intake and Output Vital Signs (last 24 hours): Temp Pulse Resp BP Pulse Ox 98.5 F 74 20 124/84 98 09/22/17 00:00 09/22/17 00:00 09/22/17 00:00 09/22/17 00:00 09/22/17 00:00 Intake and Output: 09/22/17 09/22/17 06:59 18:59 Intake Total 600 Output Total 57297 Balance -52708 - Medications Medications: Current Medications Alprazolam (Xanax) 0.25 mg PO TID PRN; Protocol PRN Reason: Anxiety Stop: 09/26/17 18:05 Last Admin: 09/22/17 08:45 Dose: 0.25 mg Aspirin (Ecotrin) 81 mg PO DAILY [facility] Atorvastatin Calcium (Lipitor) 40 mg PO DAILY [facility] Last Admin: 09/21/17 09:29 Dose: 40 mg Sodium Chloride (Sodium Chloride 0.9%) 1,000 mls @ 100 mls/hr IV .Q10H [facility] Last Admin: 09/21/17 12:36 Dose: 100 mls/hr Ceftriaxone Sodium (Rocephin 1 Gram Ivpb) 1 gm in 100 mls @ 100 mls/hr IVPB DAILY [facility] PRN Reason: Protocol Last Admin: 09/21/17 09:29 Dose: 100 mls/hr Metoprolol Tartrate (Lopressor) 50 mg PO BID [facility] Last Admin: 09/21/17 17:39 Dose: 50 mg Morphine Sulfate (Morphine) 4 mg IVP Q4H PRN PRN Reason: Pain, severe (8-10) Last Admin: 09/22/17 06:23 Dose: 4 mg Nicotine (Nicoderm Cq) 1 patch TD DAILY [facility] Last Admin: 09/21/17 09:30 Dose: 1 patch Ondansetron HCl (Zofran Inj) 4 mg IVP ONCE PRN PRN Reason: Nausea/Vomiting Pantoprazole Sodium (Protonix Inj) 40 mg IVP BID [facility] Last Admin: 09/21/17 17:39 Dose: 40 mg Ramipril (Altace) 1.25 mg PO DAILY [facility] Last Admin: 09/21/17 09:30 Dose: Not Given Tamsulosin HCl (Flomax) 0.4 mg PO DAILY [facility] Last Admin: 09/21/17 09:30 Dose: 0.4 mg - Labs Labs: 09/22/17 07:00 09/22/17 07:00 - Constitutional Appears: No Acute Distress - Head Exam Head Exam: NORMOCEPHALIC - ENT Exam ENT Exam: Mucous Membranes Moist - Respiratory Exam Respiratory Exam: Clear to Ausculation Bilateral, NORMAL BREATHING PATTERN - Cardiovascular Exam Cardiovascular Exam: +S1, +S2 - GI/Abdominal Exam GI & Abdominal Exam: Soft, Normal Bowel Sounds - Exam Additional comments: guzman with CBI - Extremities Exam Extremities Exam: Normal Capillary Refill - Neurological Exam Neurological Exam: Alert, Awake, Oriented x3 - Psychiatric Exam Psychiatric exam: Normal Affect, Normal Mood - Skin Skin Exam: Intact, Normal Color, Warm Assessment and Plan - Assessment and Plan (Free Text) Assessment: A 66 year old male who came in to the ER due to hematuria and urinary retention. Patient had a recent transurethral laser prostatic resection which guzman catheter was in place and was discontinued a week ago. He also restarted his dose of plavix. He noticed hematuria in his urine but able to urinate however progressed to scanty urine with lower abdominal pain thus came to ER. History of CAD, CABG in 2001,multiple stents and recent was 03/03,hypertension, hyperlipidemia, COPD, anxiety, recurrent UTI,BPH, appendectomy,current smoker. Plan: Doing well post cystoscopy CBI pinkish in color with no blood clots Hold aspirin and plavix On Lipitor 40 mg daily,Lopressor 50 mg BID, Altace 1.25 mg daily Stable BP and heart rate Cardiac status stable Continue current medications Continue current treatment Will follow up Plan and treatment discussed with
[2017-09-22] MEDS: cefTRIAXone 1 gm 1 GM/100 ML BAG IVPB SCH (09:04)
[2017-09-22 11:18] LABS: IRON 18 ug/dL (45-180)
[2017-09-22 11:28] LABS: % IRON SATURATION 8 % (20-55); TOTAL IRON BINDING CAPACITY 221 ug/dL (261-462)
--- NOTE | 2017-09-22 13:03 | PN ---
DATE: 09/22/2017 SUBJECTIVE: Patient is 66 years old, seen and examined, sitting in chair, seems to be comfortable, and complained of being constipated. He had one episode of coffee-ground bleeding. He was taken to OR yesterday, had big bore catheter placed. Clots were evacuated. Currently, patient is not bleeding. He has clear urine. His hemoglobin dropped from 13 to 8 last night. Because of his comorbidities and coronary artery disease, he was given 2 blood transfusions. No more rectal bleeding. PHYSICAL EXAMINATION: VITAL SIGNS: He is afebrile, pulse 73, respirations 20, blood pressure 109/56. LUNGS: Bilateral good airflow. No rhonchi. No crackles. HEART: S1, S2 audible. ABDOMEN: Soft, nontender. No rebound. No guarding. NEUROLOGIC: He is awake, alert, oriented, communicative. LABORATORY DATA: WBC is 9.5, hemoglobin 9.3, hematocrit 27.3, platelet count 169. Chemistry: Sodium 142, potassium 4.2, chloride 109, CO2 of 27. BUN 17, creatinine 0.8. Blood sugar of 160. His urine has no growth. ASSESSMENT: 1. Status post hematuria, status post cystoscopic removal of blood clots. 2. Coronary artery disease, status post angioplasty. 3. Hypertension. 4. Anxiety disorder. 5. Active smoker. 6. Status post transurethral prostatic resection. 7. Anemia, status post blood transfusion. PLAN: We will watch him 24 hours, complaining of constipation. We will give him laxative. His aspirin and Plavix on hold. We will talk to colon therapist, if there is a thought to put him on Effient or we should just put him on aspirin only. After we discussed with colon therapist, we will make discharge plan. We will follow up . Cindy Burgess MD
--- NOTE | 2017-09-22 13:09 | PN ---
DATE: 09/22/2017 SUBJECTIVE: The patient is 66 years old. Yesterday's events noted. The patient's CBI was stopped and started to have pinkish urine, so CBI was started again. He also was constipated. After given magnesium citrate, he had big bowel movement, feels good. Currently, he is on CBI. is concerned who is at the bedside that she does not want to take him home until his urine is clear. It is up to Dr. Rebolledo to decide if he want to send him with Woods catheter or it has to be removed and the patient voids prior to discharge. PHYSICAL EXAMINATION: GENERAL: On examination today, he looks comfortable. Lying in bed. VITAL SIGNS: He is afebrile, pulse 74, respirations 20, blood pressure 124/84. LUNGS: Bilateral good airflow. No rhonchi or crackle. HEART: S1 and S2 audible. ABDOMEN: Soft. No suprapubic discomfort or fullness. GENITOURINARY: Woods is draining clear urine. LABORATORY EXAM: WBC is 13.4, hemoglobin 10.5, hematocrit 31.6, platelet 198. Chemistry: Sodium 144, potassium 3.9, chloride 107, CO2 of 31, BUN 7, creatinine 0.6, blood sugar 133, iron 18, TIBC 221, saturation is 8. Urine cultures are negative. ASSESSMENT: 1. Status post transurethral prostatic resection. 2. Hematuria. 3. Coronary artery disease, status post angioplasty. 4. Anemia, required 2 blood transfusions. PLAN: The patient has been restarted on aspirin. We will hold off Lasix for now. Dr. Rebolledo to give order if CBI can be stopped and after that the decision has to be made if he should go home with Woods or if Woods can be removed prior to going home. We will make discharge plan after Dr. Rebolledo's input. Cindy Burgess MD
--- NOTE | 2017-09-22 13:20 | PN ---
DATE: 09/21/2017 This is an addendum of initial progress note dictated this morning. REASON FOR ADDENDUM: The patient having hematuria in the questions for aspirin. Since the patient continue bladder irrigation, no further episode of bleeding, we will start low dose of aspirin from tomorrow, but we will hold Plavix for now. Discussed with Dr. Burgess. The patient is clear to be discharged from Cardiology point of view. Since this is the second time, Plavix was restarted and the patient keeps on bleeding, so we cannot continue the Plavix, the patient bleeds on the Plavix and also the patient had PTCA of SVG to RCA was done on 02/25/2017 more than 6 months ago. So in view of above, we will discontinue Plavix because the patient keeps on bleeding on the Plavix, we will leave on baby aspirin starting from tomorrow. Discussed with Dr. Burgess. Last intervention was done on 02/25/2017, where the patient had catheterization done, complete heart catheterization, OSEI injection, saphenous venous graft injection was done and PRU testing was done, found to be 110 seconds, it means the patient was sensitive to the Plavix and PTCA of SVG to RCA was done with the drug-eluting stent on 02/25/2017. So, the patient had a PTCA more than 6 months ago. In view of above, we will discontinue Plavix as the patient keeps on bleeding on Plavix, but we will restart baby aspirin from tomorrow. Thank you Dr. Burgess, for providing the opportunity in taking care of the patient, Jovan Lomeli. Annalisa Mcduffie MD
[2017-09-22] MEDS: Sodium Chloride 0.9% 1,000 ML IV SCH (15:22)
[2017-09-22 17:03] LABS: FOLATE 12.9 ng/mL
[2017-09-22] MEDS ORDERED: Morphine 4 mg/ml ISec IVP STA (18:14)
--- NOTE | 2017-09-22 22:43 | PCM.URO ---
Urology Progress Note - Objective Lab Studies: Reviewed (new guzman inserted) Lab Results Last 24 Hours: Laboratory Results - last 24 hr 09/22/17 09/22/17 09/22/17 07:00 07:00 07:00 WBC 13.4 H D RBC 3.60 Hgb 10.5 L Hct 31.6 L MCV 87.8 MCH 29.2 MCHC 33.2 RDW 14.6 H Plt Count 198 MPV 9.1 Gran % 72.8 H Lymph % (Auto) 11.8 L Brule % (Auto) 11.8 H Eos % (Auto) 3.4 Baso % (Auto) 0.2 Gran # 9.77 H Lymph # (Auto) 1.6 Brule # (Auto) 1.6 H Eos # (Auto) 0.5 Baso # (Auto) 0.03 Sodium 144 Potassium 3.9 Chloride 107 Carbon Dioxide 31 Anion Gap 11 BUN 7 Creatinine 0.6 L Est GFR ( Amer) > 60 Est GFR (Non-Af Amer) > 60 Random Glucose 133 H Calcium 8.4 Iron 18 L TIBC 221 L % Saturation 8 L Ferritin Total Bilirubin 0.3 AST 30 ALT 25 Alkaline Phosphatase 58 Total Protein 5.9 Albumin 3.4 Globulin 2.6 Albumin/Globulin Ratio 1.3 Vitamin B12 Folate 09/22/17 07:00 WBC RBC Hgb Hct MCV MCH MCHC RDW Plt Count MPV Gran % Lymph % (Auto) Brule % (Auto) Eos % (Auto) Baso % (Auto) Gran # Lymph # (Auto) Brule # (Auto) Eos # (Auto) Baso # (Auto) Sodium Potassium Chloride Carbon Dioxide Anion Gap BUN Creatinine Est GFR ( Amer) Est GFR (Non-Af Amer) Random Glucose Calcium Iron TIBC % Saturation Ferritin 213.0 Total Bilirubin AST ALT Alkaline Phosphatase Total Protein Albumin Globulin Albumin/Globulin Ratio Vitamin B12 447 Folate 12.9 Intake & Output: Intake & Output 09/22/17 09/22/17 09/23/17 06:59 18:59 06:59 Intake Total 600 720 Output Total 47150 Balance -94368 720 Intake: Oral 600 720 Output: Urine 28098 Urethral (Guzman) 59390 Other: # Bowel Movements 2 1 Vital Signs: Vital Signs - 24 hr 09/22/17 09/22/17 09/22/17 00:00 09:06 13:55 Temperature 98.5 F 98 F Pulse Rate 74 74 62 Respiratory 20 20 Rate Blood Pressure 124/84 124/84 116/70 O2 Sat by Pulse 98 98 Oximetry 09/22/17 17:05 Temperature Pulse Rate 62 Respiratory Rate Blood Pressure 116/78 O2 Sat by Pulse Oximetry
[2017-09-23] MEDS: Morphine 4 mg/ml ISec IVP PRN ×2 (02:41→10:13)
--- NOTE | 2017-09-23 08:09 | CP.PCM.PN ---
Subjective - Date & Time of Evaluation Date of Evaluation: 09/23/17 Time of Evaluation: 07:00 - Subjective Subjective: Awake,anxious, sitting on chair, denies chest pain,denies shortness of breath Reason for consultation: Cardiac evaluation, coronary artery disease, post stents, Seen and examined by me and Dr. Mcduffie Objective - Vital Signs/Intake and Output Vital Signs (last 24 hours): Temp Pulse Resp BP Pulse Ox 98 F 62 20 116/78 98 09/22/17 13:55 09/22/17 17:05 09/22/17 13:55 09/22/17 17:05 09/22/17 13:55 Intake and Output: 09/23/17 09/23/17 06:59 18:59 Intake Total 200 Output Total 800 Balance -600 - Medications Medications: Current Medications Alprazolam (Xanax) 0.5 mg PO TID PRN; Protocol PRN Reason: Anxiety Stop: 09/26/17 18:05 Last Admin: 09/23/17 07:30 Dose: 0.5 mg Aspirin (Ecotrin) 81 mg PO DAILY [facility] Last Admin: 09/22/17 09:05 Dose: 81 mg Atorvastatin Calcium (Lipitor) 40 mg PO DAILY [facility] Last Admin: 09/22/17 09:05 Dose: 40 mg Sodium Chloride (Sodium Chloride 0.9%) 1,000 mls @ 100 mls/hr IV .Q10H [facility] Last Admin: 09/22/17 15:22 Dose: 100 mls/hr Ceftriaxone Sodium (Rocephin 1 Gram Ivpb) 1 gm in 100 mls @ 100 mls/hr IVPB DAILY [facility] PRN Reason: Protocol Last Admin: 09/22/17 09:04 Dose: 100 mls/hr Metoprolol Tartrate (Lopressor) 50 mg PO BID [facility] Last Admin: 09/22/17 17:05 Dose: 50 mg Morphine Sulfate (Morphine) 4 mg IVP Q4H PRN PRN Reason: Pain, severe (8-10) Last Admin: 09/23/17 02:41 Dose: 4 mg Nicotine (Nicoderm Cq) 1 patch TD DAILY [facility] Last Admin: 09/22/17 09:04 Dose: 1 patch Ondansetron HCl (Zofran Inj) 4 mg IVP ONCE PRN PRN Reason: Nausea/Vomiting Pantoprazole Sodium (Protonix Inj) 40 mg IVP BID [facility] Last Admin: 09/22/17 17:05 Dose: 40 mg Ramipril (Altace) 1.25 mg PO DAILY [facility] Last Admin: 09/22/17 09:06 Dose: 1.25 mg Tamsulosin HCl (Flomax) 0.4 mg PO DAILY [facility] Last Admin: 09/22/17 09:05 Dose: 0.4 mg - Labs Labs: 09/22/17 07:00 09/22/17 07:00 - Constitutional Appears: No Acute Distress - Eye Exam Eye Exam: Normal appearance - ENT Exam ENT Exam: Mucous Membranes Moist - Respiratory Exam Respiratory Exam: Clear to Ausculation Bilateral, NORMAL BREATHING PATTERN - Cardiovascular Exam Cardiovascular Exam: +S1, +S2 - GI/Abdominal Exam GI & Abdominal Exam: Soft, Normal Bowel Sounds - Exam Additional comments: guzman catheter draining clear yellow urine, penis minimal dark red bleeding at insertion site, swollen/reddish - Extremities Exam Extremities Exam: Normal Capillary Refill - Neurological Exam Neurological Exam: Alert, Awake, Oriented x3 Additional comments: moderate anxiety - Psychiatric Exam Psychiatric exam: Anxious - Skin Skin Exam: Intact, Normal Color, Warm Assessment and Plan - Assessment and Plan (Free Text) Assessment: A 66 year old male who came in to the ER due to hematuria and urinary retention. Patient had a recent transurethral laser prostatic resection which guzman catheter was in place and was discontinued a week ago. He also restarted his dose of plavix. He noticed hematuria in his urine but able to urinate however progressed to scanty urine with lower abdominal pain thus came to ER. History of CAD, CABG in 2001,multiple stents and recent was 03/03,hypertension, hyperlipidemia, COPD, anxiety, recurrent UTI,BPH, appendectomy,current smoker. Plan: Post cystoscopy, was supposed to be discharged yesterday however after discontinuing guzman catheter, had urinary retention thus guzman was reinserted with some difficulty Post transfusion of 2 units PRBC, repeat H/H 10.5/35.6 Restarted Aspirin Hold plavix On Lipitor 40 mg daily,Lopressor 50 mg BID, Altace 1.25 mg daily Stable BP and heart rate Cardiac status stable Anxious, xanax given Continue current medications Continue current treatment Will follow up Plan and treatment discussed with
[2017-09-23 08:39] LABS: HEMOGLOBIN 9.7 g/dL (14.0-18.0); MEAN CELL VOLUME 88.2 fl (80.0-105.0); MEAN CORPUSCULAR HEMOGLOBIN 29.3 pg (25.0-35.0); MEAN CORPUSCULAR HGB CONC 33.2 g/dl (31.0-37.0); MEAN PLATELET VOLUME 8.6 fl (7.0-11.0); RBC 3.31 10^6/uL (3.5-6.1); RED CELL DISTRIBUTION WIDTH 14.5 % (11.5-14.5); WHITE BLOOD COUNT 10.7 10^3/ul (4.5-11.0)
[2017-09-23 08:44] VITALS: PULSE 70; TEMP 98.3; O2SAT 97
[2017-09-23] MEDS ORDERED: Cefpodoxime (Vantin) 200 mg Tab PO SCH (10:00)
[2017-09-23 10:20] VITALS: BP 115/60
--- NOTE | 2017-09-23 15:35 | PN ---
DATE: 09/23/2017 LOCATION: Patient in room 564, bed 2. REASON FOR CONSULTATION AND FOLLOWUP: Coronary artery disease, coronary artery bypass surgery with a history of PTCA stent insertion on 02/25/____, SVG to RCA; had drug-eluting stent put in; hematuria; urinary retention. SUBJECTIVE: Patient is lying flat in bed without chest pain, shortness of breath, palpitation. He states last night, he had a lot of pain in bladder area and he had again retention Dr. Rebolledo last night, but denied any chest pain, shortness of breath, or palpitation. PHYSICAL EXAMINATION: VITAL SIGNS: Blood pressure 115/60, respirations 20, pulse 70, temperature 98.3. HEENT: Head is normocephalic. Eyes: Pupils are normal. Conjunctivae slightly pale. NECK: JVP low. Carotids equal. THORAX: AP diameter normal. LUNGS: Clear. CARDIOVASCULAR: S1 and S2. ABDOMEN: Soft. EXTREMITIES: No clubbing. No cyanosis. LABORATORY DATA: WBC 10.7, hemoglobin 9.7, hematocrit 29.2, platelet 176. Sodium 144, potassium 3.9, BUN 7, creatinine 0.6. AST and ALT normal. Total protein and albumin normal. DIAGNOSES: Coronary artery disease, history of coronary artery bypass graft, history of multiple stents, last stent put in saphenous vein graft to right coronary artery on , status post prostate surgery, status post cauterization because of hematuria and clot formation, status post urinary retention and change of Woods catheter, anemia. PLAN: Patient bled twice, then put on Plavix so we are going to only put on aspirin one tablet daily. Patient is on ramipril 1.25 p.o. daily, aspirin 81 daily, Flomax 0.4 daily, Lipitor 40 daily. He is getting 100 mL of fluid normal saline per hour, 200 mg every 12 hours. Annalisa Deleon MD
--- NOTE | 2017-09-24 11:19 | DS ---
HISTORY OF PRESENT ILLNESS: The patient is a 66-year-old who carries the diagnosis of coronary artery disease, has angioplasty done, was restarted on Plavix and aspirin, but started to have apryl hematuria, so he came to emergency room for further evaluation. He was admitted on 09/21/2017, he kept on bleeding, was taken to OR, had clots removed and Nepali catheter was placed. CBI was started. So, he was also started on antibiotics. PAST MEDICAL HISTORY: Significant for hypertension, hyperlipidemia, coronary artery disease, status post angioplasty. PHYSICAL EXAMINATION: GENERAL: On examination today, patient is awake, alert, oriented, communicative. VITAL SIGNS: Patient is afebrile, pulse 70, respirations 20, blood pressure 115/60. LUNGS: Bilateral fair airflow. No rhonchi or crackle. HEART: S1, S2 audible. ABDOMEN: Soft, nontender. No rebound. No guarding. NEUROLOGIC: Patient is awake, alert, oriented, able to communicate. LABORATORY EXAM: Iron is 18 ,TIBC 221, saturation is 8. Hematuria that has resolved yesterday. Patient's Woods catheter removed. He was unable to urinate so has catheter placed again. Currently, he is draining clear urine with no abdominal discomfort and wants to go home. ASSESSMENT: 1. Status post transurethral prostatic resection. 2. Status post hematuria. 3. Coronary artery disease, status post angioplasty. 4. Hypertension. 5. Anemia requiring 2 blood transfusions. PLAN: The patient is being discharged home today. He will resume his medications including ramipril, aspirin, Flomax, atorvastatin, metoprolol. He was given prescription of Xanax 0.5 t.i.d. p.r.n. He will follow up with Dr. Rebolledo next Thursday and to give him will have Woods catheter removed as an outpatient. Cindy Burgess MD
--- NOTE | 2017-09-24 11:55 | PQF ANEMIA ---
09/24/17 Dr. Burgess, Patient admitted with gross hematuria and received two units of PRBCs. Is anemia due to acute/chronic blood loss? Thank you. Clarification of your documentation is requested to better reflect the severity of illness and intensity of treatment of your patient. Indicators present [x] Anemia [] Drop in H&H from []___ to []___ [] Hypotension [] GI Bleed [] Transfusion(s) [x] Acute bleed other sites [] Tachycardia [] Surgical Procedure Blood Loss (expected not a complication) Other:[] Location in the medical record that reflects the above clinical findings: [] Treatment Provided: [] PHYSICIAN'S RESPONSE Based on your medical judgment of the clinical indicators outlined above, are you treating this patient for a known or suspected: [x] Acute blood loss anemia [] Chronic blood loss anemia [] Acute on Chronic blood loss anemia [] Anemia due to malignancy [] Anemia due to chemotherapy or radiation therapy [] Anemia of Chronic Disease, please specify: [] [x] Other, please indicate type of anemia []due to hematuria____ [] If Unable to Determine, please check the box, sign and date. Present On Admission (POA) Indicator: [] Present at the time of admission [] Not present at the time of admission [] Clinically Undetermined In responding to this query, please exercise your independent professional judgment. The fact that a question is asked does not imply that any particular answer is desired or expected. Thank you for your clarification on this documentation. If you have any questions please call:[ ] * Thank you, [ ] biology research assistant AMANDA
--- NOTE | 2017-11-02 13:38 | OP ---
PROCEDURE DATE: 09/20/2017 UROLOGY OPERATIVE REPORT PREOPERATIVE DIAGNOSES: Gross hematuria, voiding dysfunction, urinary retention, urethral stricture disease. POSTOPERATIVE DIAGNOSES: Gross hematuria, voiding dysfunction, urinary retention, urethral stricture disease. PROCEDURE: Cystoscopy and evacuation of clots. COMPLICATIONS: There were no complications. BLOOD LOSS: Less than 10 mL. INSTRUMENT USED: Woods catheter, indwelling. Very pleasant gentleman who was having lot of difficulties with his urine. See my many previously dictated notes. He is here now for the above listed procedure. He has recurrent episodes of urinary retention and needs meatal dilation. PROCEDURES: FINDINGS: 1. Meatus within normal limits. 2. We did a little dilation. 3. The bladder is irrigated and we washed out of all the clots. There were no other specific abnormalities detected. Mostly this is related to the Plavix. Every time he is back on Plavix and aspirin, he bleeds and every time he is not. See history and physical for the details of the indication. DESCRIPTION OF PROCEDURE: After obtaining informed consent, the patient was placed on the table. Routine monitor was placed. Time-out was called to confirm the patient's positioning etc. Antibiotic prophylaxis used. We introduced cystoscope via the urethra. Dilated the meatus. Remainder of the urethra was otherwise unremarkable. We got into the bladder and we inspected carefully. There were no bladder lesions that , it was just a lot of blood present, then we washed out a lot of, a lot of blood. Then we inspected carefully for any abnormalities. I inserted the Woods catheter via the urethra, after which with a little traction on it. The patient tolerated the procedure without complications. I do want to mention that some of this is Plavix related and the other the catheter is very difficult . Further plans will follow. We will try to keep the patient off. Levon Rebolledo MD
== END 2017-09-23 14:18 | disposition home or self-care (01) | DRG 696 ==
LOC: ED 12:01 → ERH 15:08 → 5RNO 17:47 → OBSVTOIN 09-21 18:16
PROVIDERS: ADMIT Internal Medicine; ATTEND Internal Medicine
PROC: 0TCB8ZZ Extirpation of Matter from Bladder, Via Natural or Artificial Opening Endoscopic (ICD-10-PCS; principal; 2017-09-20 10:30)
PROC: 30233N1 Transfusion of Nonautologous Red Blood Cells into Peripheral Vein, Percutaneous Approach (ICD-10-PCS; 2017-09-21)
DX: R31.0 Gross hematuria (principal); D62 Acute posthemorrhagic anemia; I25.110 Atherosclerotic heart disease of native coronary artery with unstable angina pectoris; N40.1 Benign prostatic hyperplasia with lower urinary tract symptoms; R33.9 Retention of urine, unspecified; D72.829 Elevated white blood cell count, unspecified; E78.00 Pure hypercholesterolemia, unspecified; E78.5 Hyperlipidemia, unspecified; F17.210 Nicotine dependence, cigarettes, uncomplicated; F41.9 Anxiety disorder, unspecified; I10 Essential (primary) hypertension; I25.2 Old myocardial infarction; J44.9 Chronic obstructive pulmonary disease, unspecified; N35.9 Urethral stricture, unspecified; K59.00 Constipation, unspecified; Z79.02 Long term (current) use of antithrombotics/antiplatelets; Z79.82 Long term (current) use of aspirin; Z87.440 Personal history of urinary (tract) infections; Z87.442 Personal history of urinary calculi; Z90.49 Acquired absence of other specified parts of digestive tract; Z95.1 Presence of aortocoronary bypass graft; Z95.5 Presence of coronary angioplasty implant and graft; H93.19 Tinnitus, unspecified ear

== ENCOUNTER 2017-10-02 07:24 | Emergency (ER) | payer MEDICARE ==
[2017-10-02 07:44] VITALS: BP 119/91; O2SAT 100; BMI 25.0
--- NOTE | 2017-10-02 07:59 | ED PDOC ---
Arrival/HPI - General Chief Complaint: Male Genitourinary Time Seen by Provider: 10/02/17 07:53 Historian: Patient - History of Present Illness Narrative History of Present Illness (Text): 10/02/17 07:45 66 year old male, whose PMH includes renal stones and hypertension, BPH, who presents to the emergency department complaining of urinary frequency, associated with mild discomfort with urination and occasional dizziness that has worsened. Pt also noted decr urination and is concern for urinary retention. Patient reports having frequent urinary retention in the past including hematuria. Patient notes his veliz catheter was removed 9 days ago and since then his symptoms have continued. pt spoke to Dr. Agustin Rebolledo and was instructed to come to emergency department for veliz catheter placement. Patient denies chest pain, shortness of breath, palpitations, abdominal pain nausea, vomiting, diarrhea, LOC, or other complaints. pt denied bleeding pt denied fall/trauma/travel/sick contact pt is here for further eval/pt's without other complaints Urology: Dr Rebolledo Time/Duration: > week Symptom Onset: Gradual Symptom Course: Unchanged Severity Level: Severe Activities at Onset: Rest Context: Home Past Medical History - Provider Review Nursing Documentation Reviewed: Yes - Travel History Have you recently traveled outside [place] w/in the past 3 mons?: No - Past History Past History: Non-Contributing - Infectious Disease Hx of Infectious Diseases: None - Tetanus Immunization Tetanus Immunization: Unknown - Cardiac Hx Cardiac Disorders: Yes (mi, cabg 2 2001) Hx Hypertension: Yes - Pulmonary Hx Respiratory Disorders: Yes - Neurological Hx Neurological Disorder: No - HEENT Hx HEENT Disorder: Yes Other/Comment: TINNITUS - Renal Hx Kidney Stones: Yes - Endocrine/Metabolic Hx Endocrine Disorders: No - Hematological/Oncological Hx Blood Transfusions: No Hx Blood Transfusion Reaction: No - Integumentary Hx Dermatological Disorder: No - Musculoskeletal/Rheumatological Hx Falls: No - Gastrointestinal Hx Gastrointestinal Disorders: Yes (APPENDECTOMY) - Genitourinary/Gynecological Hx Genitourinary Disorders: Yes (URINARY RETENTION) Hx Hematuria: Yes Hx Prostate Problems: Yes (bph) Hx Urinary Tract Infection: Yes Other/Comment: VELIZ - Psychiatric Hx Psychophysiologic Disorder: Yes Hx Anxiety: Yes Hx Substance Use: No - Surgical History Hx Appendectomy: Yes Hx Cardiac Catheterization: Yes (10/30/14/& 12/13/15) Hx Coronary Stent: Yes (ptca x5 stents total last one 02/2017) Hx Orthopedic Surgery: Yes (b/l arthoscopic cartilage removal) Other/Comment: PROSTATE SURGERY, turp green light laser 08/24/17, tonsillectomy - Anesthesia Hx Anesthesia Reactions: No Hx Malignant Hyperthermia: No - Suicidal Assessment Feels Threatened In Home Enviroment: No Family/Social History - Physician Review Nursing Documentation Reviewed: Yes Family/Social History: Unknown Family HX Smoking Status: Heavy Smoker > 10 Cigarettes Daily Hx Alcohol Use: Yes (SOCIALLY) Hx Substance Use: No Hx Substance Use Treatment: No Allergies/Home Meds Allergies/Adverse Reactions: Allergies No Known Allergies Allergy (Verified 10/02/17 07:44) Home Medications: Home Meds Medication Instructions Recorded Confirmed Metoprolol Tartrate 50 mg PO BID 12/11/15 10/02/17 Ramipril [Altace] 1.25 mg PO DAILY 12/11/15 10/02/17 Atorvastatin [Lipitor] 40 mg PO DAILY 07/19/16 10/02/17 Ezetimibe [Zetia] 10 mg PO DAILY 12/03/16 10/02/17 ALPRAZolam [Xanax] 0.25 mg PO TID PRN 08/25/17 10/02/17 Review of Systems - Physician Review All systems were reviewed & negative as marked: Yes - Review of Systems Constitutional: absent: Fevers Eyes: Normal ENT: Normal Respiratory: absent: SOB Cardiovascular: absent: Chest Pain Gastrointestinal: Abdominal Pain (lower abd cramps). absent: Nausea, Vomiting Genitourinary Male: Frequency, Urinary Output Changes. absent: Hematuria Musculoskeletal: Normal Skin: Normal Neurological: Dizziness Endocrine: Normal Hemo/Lymphatic: Normal Psychiatric: Normal Physical Exam - Physical Exam Narrative Physical Exam (Text): 10/02/17 General: alert/awake, GCS = 15, oriented x 3, resting in bed, mildly uncomfortable, cooperative, interactive Head: NC/AT EYE: PERRLA, EOMI, sclera anicteric, no nystagmus, no photophobia Facial: WNL Oral: uvula/tongue are midline, no exudate/lesions, no drooling/stridor, no dysphonia NECK: intact ROM, no midline tenderness, no nuchal rigidity, no meningeal signs Chest: CTA b/l, no w/r/r; no tachypenia, no accessory muscle use noted Cardiac: +S1, +S2, no m/r/r Abdominal: +BS, soft/nd/nt, well nourished patient; no masses/rebound/guarding/ rigidity; mild suprapubic tenderness/tightness ext: intact ROM, strength 5/5 grossly intact in all limbs, neurovasc intact b/l ; + ambulatory SKIN: cap refill < 1 sec, no ulcerations, no petechiae, no rashes NEURO: CNII-XII WNL, no facial asymmetries, no slurr speech, oriented x 3 NIH stroke scale ~ 0 Psych: normal insight, normal affect Vital Signs Reviewed: Yes Vital Signs Temp Pulse Resp BP Pulse Ox 10/02/17 07:45 98.1 F 60 18 119/91 H 100 10/02/17 07:42 98.1 F 60 18 119/91 H 100 Temperature: Afebrile Blood Pressure: Normal (mild DBP elevation) Pulse: Regular Respiratory Rate: Normal Appearance: Positive for: Well-Appearing, Non-Toxic, Comfortable Pain Distress: None Mental Status: Positive for: Alert and Oriented X 3 Medical Decision Making ED Course and Treatment: 10/02/17 Impression: urinary retention/BPH 66 year old male complaining of urinary frequency who presents to the emergency department for veliz catheter placement. Plan: -- Veilz placement by Dr Rebolledo -- Reassess and disposition Progress Notes: 10/02/2017 07:52 Case was discussed with Dr. Agustin Rebolledo, who is aware of case and will come to the emergency department to place veliz catheter. He is requesting urology cart at bed side. 10/02/17 08:55 Dr. Rebolledo is currently at bedside; placing veliz catheter 10/02/17 09:10 Dr. Rebolledo placed catheter and suggested antibiotics before patient is d/c. pt can follow up in his office in the next 1 week 9:15 pt is comfortable pt is not in any distress pt is made aware of his medical results pt is encouraged fluid hydration pt will follow up as directed pt will be discharged home Re-evaluation Time: 09:24 Reassessment Condition: Improved - Lab Interpretations I have reviewed the lab results: Yes Interpretation: Abnormal lab values (+ UTI) - Medication Orders Current Medication Orders: Discontinued Medications Levofloxacin (Levaquin) 500 mg PO STAT STA PRN Reason: Protocol Stop: 10/02/17 09:11 Last Admin: 10/02/17 09:16 Dose: 500 mg - Scribe Statement The provider has reviewed the documentation as recorded by the Tobin Meade Provider Scribe Attestation: All medical record entries made by the Scribe were at my direction and personally dictated by me. I have reviewed the chart and agree that the record accurately reflects my personal performance of the history, physical exam, medical decision making, and the department course for this patient. I have also personally directed, reviewed, and agree with the discharge instructions and disposition. Disposition/Present on Arrival - Present on Arrival Any Indicators Present on Arrival: No History of DVT/PE: No History of Uncontrolled Diabetes: No Urinary Catheter: Yes (inserted in ed) History of Decub. Ulcer: No History Surgical Site Infection Following: None - Disposition Have Diagnosis and Disposition been Completed?: Yes Diagnosis: Urinary retention due to benign prostatic hyperplasia, UTI (urinary tract infection) Disposition: HOME/ ROUTINE Disposition Time: 09:15 Patient Plan: Discharge Patient Problems: Current Active Problems Problem Status Onset Urinary retention due to benign prostatic hyperplasia Acute Condition: STABLE Discharge Instructions (ExitCare): Urinary Retention, Veliz Catheter, Male Print Language: TURKISH Additional Instructions: Make sure to see your doctor in 1-2 days DRINK PLENTY OF FLUIDS take your medications as prescribed Maintain veliz cath as instructed RETURN TO ED IF worse pain, cant breath, cant urinate, persistent vomiting, high fever >101-102 for hours, altered behavior, slurr speech, facial changes, focal weakness (arm/leg or both), unable to urinate, heavy/persistent bleeding, passing out, chest pain, or other medical emergencies Prescriptions: Levofloxacin [Levaquin] 500 mg PO DAILY #6 tablet Referrals: Cindy Burgess MD [Primary Care Provider] - Follow up with primary Agustin Rebolledo MD [Staff Provider] - Follow up with primary Forms: [employer] ([place]ish)
[2017-10-02] MEDS ORDERED: levoFLOXacin 500 MG TAB PO STA (09:10)
[2017-10-02 09:22] LABS: URINE BILIRUBIN NEGATIVE (NEGATIVE); URINE BLOOD LARGE (NEGATIVE); URINE GLUCOSE (UA) NEGATIVE (NEGATIVE); URINE LEUKOCYTE ESTERASE TRACE Leu/uL (NEGATIVE); URINE PROTEIN >=300 mg/dL (<30 mg/dL); URINE UROBILINOGEN 0.2 E.U./dL (<1 E.U./dL)
[2017-10-02 09:26] LABS: URINE APPEARANCE BLOODY (CLEAR); URINE COLOR DARK RED (YELLOW)
[2017-10-02 09:33] VITALS: PULSE 65; RESP 19; TEMP 97.9
[2017-10-02 09:38] LABS: URINE RBC TNTC /hpf (0-2)
== END 2017-10-02 09:33 | disposition home or self-care (01) ==
LOC: ED 07:24
DX: N40.1 Benign prostatic hyperplasia with lower urinary tract symptoms (principal); R33.8 Other retention of urine; N39.0 Urinary tract infection, site not specified

== ENCOUNTER 2017-11-20 13:48 | Emergency (ER) | payer MEDICARE ==
[2017-11-20 13:49] VITALS: BMI 25.0
[2017-11-20 13:58] VITALS: TEMP 98.4
--- NOTE | 2017-11-20 14:12 | ED PDOC ---
Arrival/HPI - General Chief Complaint: Chest Pain Time Seen by Provider: 11/20/17 14:08 Historian: Patient - History of Present Illness Time/Duration: Prior to Arrival Symptom Onset: Sudden Symptom Course: Resolved Quality: Aching, Pressure Severity Level: Moderate Activities at Onset: Sleeping Associated Symptoms (Text): 11/20/17 14:09 Patient reports that he did not sleep well last night and was taking a nap this afternoon. He was awoken from sleep by chest heaviness and tightness with bilateral arm heaviness and tightness. The pain lasted for approximately 30 minutes. Resolved with Xanax. No dyspnea. No diaphoresis. No dizziness or lightheadedness. No nausea or vomiting. History of coronary artery disease with CABG and multiple stent placements. He is on aspirin. He stopped his Plavix. Past Medical History - Past History Past History: Non-Contributing - Infectious Disease Hx of Infectious Diseases: None - Tetanus Immunization Tetanus Immunization: Unknown - Cardiac Hx Cardiac Disorders: Yes Hx RI: Yes Hx Hypertension: Yes - Pulmonary Hx Respiratory Disorders: Yes - Neurological Hx Neurological Disorder: No - HEENT Hx HEENT Disorder: Yes Other/Comment: TINNITUS - Renal Hx Kidney Stones: Yes - Endocrine/Metabolic Hx Endocrine Disorders: No - Hematological/Oncological Hx Blood Transfusions: No Hx Blood Transfusion Reaction: No - Integumentary Hx Dermatological Disorder: No - Musculoskeletal/Rheumatological Hx Falls: No - Gastrointestinal Hx Gastrointestinal Disorders: Yes (APPENDECTOMY) - Genitourinary/Gynecological Hx Genitourinary Disorders: Yes (URINARY RETENTION) Hx Hematuria: Yes Hx Prostate Problems: Yes Hx Urinary Tract Infection: Yes Other/Comment: VELIZ - Psychiatric Hx Psychophysiologic Disorder: Yes Hx Anxiety: Yes Hx Substance Use: No - Surgical History Hx Appendectomy: Yes Hx Cardiac Catheterization: Yes Hx Coronary Artery Bypass Graft: Yes Hx Coronary Stent: Yes Hx Orthopedic Surgery: Yes Hx Tonsillectomy: Yes Other/Comment: PROSTATE SURGERY - Anesthesia Hx Anesthesia Reactions: No Hx Malignant Hyperthermia: No - Suicidal Assessment Feels Threatened In Home Enviroment: No Family/Social History - Physician Review Nursing Documentation Reviewed: Yes Family/Social History: Unknown Family HX Smoking Status: Heavy Smoker > 10 Cigarettes Daily (1.5 packs per day) Hx Alcohol Use: Yes (SOCIALLY) Hx Substance Use: No Hx Substance Use Treatment: No Allergies/Home Meds Allergies/Adverse Reactions: Allergies No Known Allergies Allergy (Verified 11/20/17 13:55) Home Medications: Home Meds Medication Instructions Recorded Confirmed Metoprolol Tartrate 50 mg PO BID 12/11/15 10/02/17 Ramipril [Altace] 1.25 mg PO DAILY 12/11/15 10/02/17 Atorvastatin [Lipitor] 40 mg PO DAILY 07/19/16 10/02/17 Ezetimibe [Zetia] 10 mg PO DAILY 12/03/16 10/02/17 ALPRAZolam [Xanax] 0.25 mg PO TID PRN 08/25/17 10/02/17 Review of Systems - Physician Review All systems were reviewed & negative as marked: Yes - Review of Systems Respiratory: Normal. absent: SOB Cardiovascular: Chest Pain. absent: Palpitations, Syncope Gastrointestinal: absent: Abdominal Pain, Nausea, Vomiting Neurological: absent: Headache, Dizziness, Focal Weakness Physical Exam Vital Signs Temp Pulse Resp BP Pulse Ox 11/20/17 15:23 59 L 18 128/72 97 11/20/17 13:55 98.4 F 52 L 16 146/85 99 Temperature: Afebrile Blood Pressure: Normal Pulse: Bradycardic Respiratory Rate: Normal Appearance: Positive for: Well-Appearing, Non-Toxic, Comfortable Pain Distress: None Mental Status: Positive for: Alert and Oriented X 3 - Systems Exam Head: Present: Atraumatic, Normocephalic Pupils: Present: PERRL Extroacular Muscles: Present: EOMI Conjunctiva: Present: Normal Mouth: Present: Moist Mucous Membranes Neck: Present: Normal Range of Motion Respiratory/Chest: Present: Clear to Auscultation, Good Air Exchange, Decreased Breath Sounds. No: Respiratory Distress, Accessory Muscle Use Cardiovascular: Present: Regular Rate and Rhythm, Normal S1, S2. No: Murmurs Abdomen: No: Tenderness, Distention, Peritoneal Signs, Rebound, Guarding Back: Present: Normal Inspection Upper Extremity: Present: Normal Inspection. No: Cyanosis, Edema Lower Extremity: Present: Normal Inspection. No: Edema Neurological: Present: GCS=15, CN II-XII Intact, Speech Normal, Motor Func Grossly Intact Skin: Present: Warm, Dry, Normal Color. No: Rashes Psychiatric: Present: Alert, Oriented x 3, Normal Insight, Normal Concentration Medical Decision Making ED Course and Treatment: 11/20/17 14:11 EKG shows normal sinus rhythm rate approximately 50 with a left axis and nonspecific ST and T wave change 11/20/17 15:56 Discussed with , who accepts to her service on telemetry observation. 11/20/17 16:00 Telemetry admission arrangements made with PMD. Patient adamantly refuses. He is here with his who concurs. He is awake, alert and able to make such a decision. He will sign out AMA.. He was informed that he can follow-up in the emergency department at any time for further evaluation and treatment. - Lab Interpretations Lab Results: 11/20/17 14:18 11/20/17 14:18 Lab Results 11/20/17 14:18: Sodium 142, Potassium 4.0, Chloride 106, Carbon Dioxide 26, Anion Gap 14, BUN 12, Creatinine 0.6 L, Est GFR ( Amer) > 60, Est GFR ( Non-Af Amer) > 60, Random Glucose 92, Calcium 9.1, Magnesium 1.8, Total Bilirubin 0.5, AST 34, ALT 26, Alkaline Phosphatase 69, Lactate Dehydrogenase 393, Total Creatine Kinase 60, Troponin I < 0.01, Total Protein 6.8, Albumin 4.0 , Globulin 2.7, Albumin/Globulin Ratio 1.5 11/20/17 14:18: WBC 6.6 D, RBC 4.55, Hgb 13.2 L D, Hct 39.1 L, MCV 85.9, MCH 29.0, MCHC 33.8, RDW 14.8 H, Plt Count 174, MPV 9.6, Gran % 65.4, Lymph % (Auto ) 22.7, [place] % (Auto) 8.4 H, Eos % (Auto) 3.0, Baso % (Auto) 0.5, Gran # 4.29, Lymph # (Auto) 1.5, [place] # (Auto) 0.6, Eos # (Auto) 0.2, Baso # (Auto) 0.03 - RAD Interpretation Radiology Orders: 11/20/17 14:08 CHEST PORTABLE [RAD] Stat Chest 1 view shows no infiltrate or effusion or cardiomegaly. Hardware present. Heel Reducer: Radiologist Disposition/Present on Arrival - Present on Arrival Any Indicators Present on Arrival: No History of DVT/PE: No History of Uncontrolled Diabetes: No Urinary Catheter: Yes (inserted in ed) History of Decub. Ulcer: No History Surgical Site Infection Following: None - Disposition Have Diagnosis and Disposition been Completed?: Yes Diagnosis: Chest pain Disposition: AGAINST MEDICAL ADVICE Disposition Time: 15:57 Patient Plan: Observation, Telemetry Patient Problems: Current Active Problems Problem Status Onset Chest pain Acute Condition: GOOD Discharge Instructions (ExitCare): Chest Pain (ED) Referrals: Cindy Burgess MD [Primary Care Provider] - Follow up with primary Forms: [employer] (Azeri)
--- NOTE | 2017-11-20 14:27 | RAD ---
HISTORY: Chest pain. COMPARISON: 07/30/2017 FINDINGS: LUNGS: No active pulmonary disease. PLEURA: No significant pleural effusion identified, no pneumothorax apparent. CARDIOVASCULAR: No radiographic findings to suggest acute or significant cardiovascular disease.No radiographic findings to suggest acute or significant cardiovascular disease. Incidental Finding(s): Postoperative changes related to sternotomy. OSSEOUS STRUCTURES: No significant abnormalities. VISUALIZED UPPER ABDOMEN: Normal. OTHER FINDINGS: None. IMPRESSION: No active disease. No significant interval change compared to the prior examination(s).
[2017-11-20 14:39] LABS: BASO # 0.03 K/mm3 (0.0-2.0); BASO % 0.5 % (0.0-3.0); EOS # 0.2 (0.0-0.7); GRAN # 4.29 (1.4-6.5); GRAN % 65.4 % (50.0-68.0); HEMOGLOBIN 13.2 g/dL (14.0-18.0); LYMPH # 1.5 (1.2-3.4); LYMPH % 22.7 % (22.0-35.0); MEAN CELL VOLUME 85.9 fl (80.0-105.0); MEAN CORPUSCULAR HGB CONC 33.8 g/dl (31.0-37.0); MEAN PLATELET VOLUME 9.6 fl (7.0-11.0); MONO # 0.6 (0.1-0.6); MONO % 8.4 % (1.0-6.0); RBC 4.55 10^6/uL (3.5-6.1); RED CELL DISTRIBUTION WIDTH 14.8 % (11.5-14.5); WHITE BLOOD COUNT 6.6 10^3/ul (4.5-11.0)
[2017-11-20 14:55] LABS: ALB/GLOB RATIO 1.5 (1.1-1.8); ALT/SGPT 26 U/L (7-56); AST/SGOT 34 U/L (17-59); BLOOD UREA NITROGEN 12 mg/dL (7-21); CALCIUM 9.1 mg/dL (8.4-10.5); GFR AFRICAN-AMERICAN > 60; GFR NON-AFRICAN AMERICAN > 60
[2017-11-20 15:06] LABS: TROPONIN I < 0.01 ng/mL
[2017-11-20 15:24] VITALS: RESP 18
[2017-11-20 16:23] VITALS: BP 131/73; PULSE 55; O2SAT 98
--- NOTE | 2017-11-21 09:10 | CARD ---
APPROVED REPORT EKG Measurement Heart [id number] <Conclusion> Sinus bradycardia Left axis deviation STTW changes c/w ischemia
== END 2017-11-20 16:31 | disposition left against medical advice (07) ==
LOC: ED 13:48 → ERH 15:54 → UNDOADMOB 15:54 → ERH 16:29
DX: R07.9 Chest pain, unspecified (principal); I10 Essential (primary) hypertension

== ENCOUNTER 2018-02-12 11:40 | Observation (INO) | payer MEDICARE ==
[2018-02-12 11:53] VITALS: BMI 23.9
--- NOTE | 2018-02-12 12:06 | ED PDOC ---
Arrival/HPI - General Time Seen by Provider: 02/12/18 11:44 Historian: Patient - History of Present Illness Narrative History of Present Illness (Text): 02/12/18 11:57 67 year old male 1 PPD smoker, whose past medical history includes BPH, urinary retention, hypertension, hyperlipidemia, CABG, and CAD with a stent (last placement about 10 months ago), presents to the emergency department with intermittent chest and arm heaviness, for 2 days. Patient states he takes Xanax and it seems to help. Patient informs of a lot of recent stress in his life including eviction, caring for his grandchild, and his daughter moving back in with him. Patient informs he has taken his Plavix today. Patient denies any alcohol or drug use. Patient also denies any shortness of breath, nausea, vomiting, diaphoresis, dizziness, or any other complaints. Patient informs he is currently pain free. Time/Duration: < week (2 days) Associated Symptoms (Text): 02/12/18 12:30 Intermittent chest pain described as heaviness and bilateral arm heaviness for the last 2 days. Patient is currently pain-free. No dyspnea. No diaphoresis. No dizziness or lightheadedness. No nausea or vomiting. Multiple positive stre ssors. He reports Xanax helps him. He is taking his aspirin and Plavix. History of coronary artery disease with CABG and stents. He continues to smoke one pack per day. Past Medical History - Provider Review Nursing Documentation Reviewed: Yes - Past History Past History: Non-Contributing - Infectious Disease Hx of Infectious Diseases: None - Tetanus Immunization Tetanus Immunization: Unknown - Cardiac Hx Cardiac Disorders: Yes Hx MD: Yes Hx Hypertension: Yes - Pulmonary Hx Respiratory Disorders: Yes - Neurological Hx Neurological Disorder: No - HEENT Hx HEENT Disorder: Yes Other/Comment: TINNITUS - Renal Hx Kidney Stones: Yes - Endocrine/Metabolic Hx Endocrine Disorders: No - Hematological/Oncological Hx Blood Transfusions: No Hx Blood Transfusion Reaction: No - Integumentary Hx Dermatological Disorder: No - Musculoskeletal/Rheumatological Hx Falls: No - Gastrointestinal Hx Gastrointestinal Disorders: Yes (APPENDECTOMY) - Genitourinary/Gynecological Hx Genitourinary Disorders: Yes (URINARY RETENTION) Hx Hematuria: Yes Hx Prostate Problems: Yes Hx Urinary Tract Infection: Yes Other/Comment: VELIZ - Psychiatric Hx Psychophysiologic Disorder: Yes Hx Anxiety: Yes Hx Substance Use: No - Surgical History Hx Appendectomy: Yes Hx Cardiac Catheterization: Yes Hx Coronary Artery Bypass Graft: Yes Hx Coronary Stent: Yes Hx Orthopedic Surgery: Yes Hx Tonsillectomy: Yes Other/Comment: PROSTATE SURGERY - Anesthesia Hx Anesthesia Reactions: No Hx Malignant Hyperthermia: No - Suicidal Assessment Feels Threatened In Home Enviroment: No Family/Social History - Physician Review Nursing Documentation Reviewed: Yes Family/Social History: No Known Family HX Smoking Status: Heavy Smoker > 10 Cigarettes Daily (1.5 packs per day) Hx Alcohol Use: Yes (SOCIALLY) Hx Substance Use: No Hx Substance Use Treatment: No Allergies/Home Meds Allergies/Adverse Reactions: Allergies No Known Allergies Allergy (Verified 02/12/18 12:09) Home Medications: Home Meds Medication Instructions Recorded Confirmed Aspirin [Adult Low Dose Aspirin EC] 81 mg PO DAILY 12/01/17 12/01/17 Clopidogrel [Plavix] 75 mg PO DAILY 12/01/17 12/01/17 Review of Systems - Physician Review All systems were reviewed & negative as marked: Yes - Review of Systems Constitutional: absent: Fatigue, Fevers Respiratory: absent: SOB, Cough, Sputum, Wheezing Cardiovascular: Chest Pain, Other (Chest Heaviness). absent: Palpitations, Syncope Gastrointestinal: absent: Abdominal Pain, Diarrhea, Nausea, Vomiting Neurological: absent: Dizziness Endocrine: absent: Diaphoresis Physical Exam Temperature: Afebrile Blood Pressure: Normal Pulse: Bradycardic Respiratory Rate: Normal Appearance: Positive for: Well-Appearing, Non-Toxic, Comfortable Pain Distress: None Mental Status: Positive for: Alert and Oriented X 3 - Systems Exam Head: Present: Atraumatic, Normocephalic Pupils: Present: PERRL Extroacular Muscles: Present: EOMI Conjunctiva: Present: Normal Mouth: Present: Moist Mucous Membranes Neck: Present: Normal Range of Motion Respiratory/Chest: Present: Clear to Auscultation, Good Air Exchange. No: Respiratory Distress, Accessory Muscle Use, Tender to Palpation Cardiovascular: Present: Regular Rate and Rhythm, Normal S1, S2. No: Murmurs Abdomen: No: Tenderness, Distention, Peritoneal Signs Back: Present: Normal Inspection Upper Extremity: Present: Normal Inspection. No: Cyanosis, Edema Lower Extremity: Present: Normal Inspection. No: Edema Neurological: Present: GCS=15, CN II-XII Intact, Speech Normal, Motor Func Grossly Intact Skin: Present: Warm, Dry, Normal Color. No: Rashes Psychiatric: Present: Alert, Oriented x 3, Normal Insight, Normal Concentration, Anxious Medical Decision Making ED Course and Treatment: 02/12/18 12:09 Impression: 67 year old male presents with chest and arm heaviness. Plan: -- EKG -- Chest X-ray -- Labs -- Reassess and disposition Prior Visits: Notes and results from previous visits were reviewed. Progress Notes: 02/12/18 12:32 EKG shows sinus bradycardia rate approximately 55 with inverted T waves similar to EKG of 11/20/2017 02/12/18 13:32 Seen and examined in the emergency department by , who will place on a telemetry observation bed. - RAD Interpretation Radiology Orders: 02/12/18 11:54 CHEST PORTABLE [RAD] Stat Chest one view as read by the radiologist shows hardware with no infiltrate effusion or cardiomegaly. Ward Clerk: Radiologist - Scribe Statement The provider has reviewed the documentation as recorded by the Scribe Tee Rogel All medical record entries made by the Scribe were at my direction and personally dictated by me. I have reviewed the chart and agree that the record accurately reflects my personal performance of the history, physical exam, medical decision making, and the department course for this patient. I have also personally directed, reviewed, and agree with the discharge instructions and disposition. Disposition/Present on Arrival - Present on Arrival Any Indicators Present on Arrival: No History of DVT/PE: No History of Uncontrolled Diabetes: No Urinary Catheter: Yes (inserted in ed) History of Decub. Ulcer: No History Surgical Site Infection Following: None - Disposition Have Diagnosis and Disposition been Completed?: Yes Diagnosis: Chest pain, Anxiety Disposition: HOSPITALIZED Disposition Time: 13:34 Patient Plan: Observation, Telemetry Condition: GOOD Discharge Instructions (ExitCare): Chest Pain (ED) Referrals: Cindy Burgess MD [Primary Care Provider] - Follow up with primary
--- NOTE | 2018-02-12 12:43 | RAD ---
Date of service: 02/12/2018 HISTORY: cp COMPARISON: Chest radiograph dated 11/20/2017. FINDINGS: LUNGS: No active pulmonary disease. PLEURA: No significant pleural effusion identified, no pneumothorax apparent. CARDIOVASCULAR: Prior sternotomy with sternal wires and surgical clips redemonstrated. Atherosclerotic aortic calcifications. Cardiomediastinal silhouette stably prominent. OSSEOUS STRUCTURES: Unchanged. VISUALIZED UPPER ABDOMEN: Normal. OTHER FINDINGS: None. IMPRESSION: No active disease.
[2018-02-12 12:51] LABS: BASO # 0.02 K/mm3 (0.0-2.0); BASO % 0.2 % (0.0-3.0); EOS # 0.1 (0.0-0.7); EOS % 0.6 % (1.5-5.0); GRAN # 6.06 (1.4-6.5); GRAN % 74.4 % (50.0-68.0); HEMOGLOBIN 14.4 g/dL (14.0-18.0); LYMPH # 1.4 (1.2-3.4); LYMPH % 16.5 % (22.0-35.0); MEAN CELL VOLUME 86.7 fl (80.0-105.0); MEAN CORPUSCULAR HEMOGLOBIN 29.5 pg (25.0-35.0); MEAN PLATELET VOLUME 9.7 fl (7.0-11.0); MONO # 0.7 (0.1-0.6); MONO % 8.3 % (1.0-6.0); RBC 4.88 10^6/uL (3.5-6.1); RED CELL DISTRIBUTION WIDTH 14.9 % (11.5-14.5); WHITE BLOOD COUNT 8.2 10^3/ul (4.5-11.0)
[2018-02-12 13:07] LABS: ALB/GLOB RATIO 1.4 (1.1-1.8); ALBUMIN 4.1 g/dL (3.0-4.8); ALT/SGPT 32 U/L (7-56); AST/SGOT 29 U/L (17-59); BLOOD UREA NITROGEN 10 mg/dL (7-21); CALCIUM 9.4 mg/dL (8.4-10.5); GFR NON-AFRICAN AMERICAN > 60
[2018-02-12 13:20] LABS: TROPONIN I < 0.01 ng/mL
[2018-02-12 16:31] VITALS: O2SAT 98
[2018-02-12] MEDS ORDERED: Influenza Vaccine 60 mcg/0.5 mL SYR (4YR UP) IM ONE (18:18)
[2018-02-12] MEDS ORDERED: Pneumococcal 23-Valent Vaccine IM ONE (18:18)
--- NOTE | 2018-02-13 07:45 | HP ---
HISTORY OF PRESENT ILLNESS: The patient is a 67-year-old, known to me from multiple previous admissions. The patient said there is a lot going on in my life. His son is moving. He is taking care of grandkids and he also is not feeling well. So he was having intermittent chest pain for the last few days. He was very anxious, nervous. He started to have increased frequency of urination also. He is very nervous about all the event that happened during prostate surgery. So all these things caught up on him and he started to have some chest pressure; so he came to emergency room for further evaluation. Currently he is feeling better when I saw him in the ER. No shortness of breath. He denies any fever or chills. No history of cough or congestion. PAST MEDICAL HISTORY: Significant for; 1. Hypertension. 2. Coronary artery disease, status post multiple angioplasties. 3. COPD. 4. Recent prostatic intervention and has laser vaporization of prostate done. 5. History of anxiety disorder. ALLERGIES: HE IS NOT ALLERGIC TO ANY MEDICATIONS. MEDICATIONS: At home, he takes: 1. Xanax 0.25 three times a day. 2. Plavix 75 daily. 3. Lipitor 40 mg daily. 4. Aspirin 81 daily. 5. Flomax 0.4 daily. 6. Ramipril 1.25 daily. 7. Metoprolol 50 mg twice a day. 8. Zetia 10 mg daily. SOCIAL HISTORY: He is , lives with his . He is active smoker, but socially drinks. Still smokes 10-12 cigarettes daily. REVIEW OF SYSTEMS: Significant for feeling nervous. Had chest pain intermittently for few days. PHYSICAL EXAMINATION: GENERAL: Today, he looks comfortable, but anxious. VITAL SIGNS: He is afebrile, pulse 76, respiration 22, blood pressure 125/77. LUNGS: Bilateral fair airflow. No rhonchi or crackle. HEART: S1, S2 audible. ABDOMEN: Soft, nontender. No rebound, no guarding. NEUROLOGIC: The patient is awake, alert, oriented, communicative. EXTREMITIES: Bilateral legs, no edema. LABORATORY DATA: WBC 8.2, hemoglobin 14, hematocrit 42, platelets 186. Chemistry: Sodium 142, potassium 3.8, chloride 106, CO2 of 30, BUN 10, creatinine 0.6, blood sugar of 95. LFTs are within normal limits. LDH is 327. He had x-ray of chest done that is unremarkable. ASSESSMENT: 1. Chest pain, rule out underlying coronary ischemia. 2. History of hypertension. 3. Hyperlipidemia. 4. Anxiety disorder. 5. Chronic obstructive pulmonary disease. 6. Active smoker. PLAN: We will continue the patient on aspirin, ramipril, give him atorvastatin. Continue him on Xanax as needed. Cardiology consult by has been requested. Cindy Burgess MD
--- NOTE | 2018-02-13 08:53 | CARD ---
APPROVED REPORT Date of service: 02/12/2018 EKG Measurement Heart [id number] <Conclusion> Sinus bradycardia LAD STTW changes c/w ischemia No change
[2018-02-13 13:13] VITALS: BP 107/77; RESP 20; TEMP 97.4
[2018-02-13 14:19] VITALS: PULSE 74
[2018-02-13] MEDS ORDERED: Enoxaparin 40 mg Syringe SC SCH (14:30)
--- NOTE | 2018-02-13 14:31 | CON ---
DATE: 02/13/2018 HISTORY OF PRESENT ILLNESS: This is a 67-year-old man with history of hypertension, coronary artery disease, status post multiple angioplasties, COPD, history of BPH, status post laser vaporization of the prostate, history of anxiety disorder, who came in for intermittent chest pain and has been having tremulous movements of his upper extremities especially when he is stressed and anxious. He is going through a lot of personal stress in terms of taking care of his daughter's child as well as hoping daughter get a job and he is having a lot of stresses in regards to that. Therefore, came for intermittent chest pain and has been having more tremors of his upper extremities when he was anxious. He is also mildly depressed. No focal weakness of extremities. Walking around without any difficulties. PAST MEDICAL HISTORY: As above. SOCIAL HISTORY: No illicit drug use, smoking or EtOH abuse. REVIEW OF SYSTEMS: Fourteen-point review of systems is negative except as per the HPI. FAMILY HISTORY: Noncontributory. MEDICATIONS: Reviewed by nurses' reconciliation sheet. LABORATORY DATA: Sodium is 142, potassium 3.8, chloride of 106, carbon dioxide of 30, BUN of 10, creatinine 0.6, random glucose of 95. PHYSICAL EXAMINATION: VITAL SIGNS: Temperature 97.4, pulse rate of 54, blood pressure 107/70, respiratory rate of 20. GENERAL: The patient is sitting up in bed, walking around, in no acute distress. HEENT: Atraumatic, normocephalic. PERRLA. Extraocular muscles intact. NECK: Supple. No JVD, no adenopathy noted. LUNGS: Clear to auscultation. No adventitious sounds. HEART: S1, S2. Normal rate and rhythm. No murmurs, rubs or gallops. ABDOMEN: Soft, nontender and nondistended. Bowel sounds are present. EXTREMITIES: No clubbing. No cyanosis. Peripheral pulses 2+ felt bilaterally. NEUROLOGIC: The patient is alert and oriented to person, place, month and year. Speech is fluent without any errors. Cranial nerves II through XII are intact. Motor exam: Moves all extremities equally. Toes are downgoing bilaterally. Sensory exam: Light touch, pinprick, proprioception and vibration are intact. DTRs are 2+ throughout. He has very anxious state. IMPRESSION: His upper extremity tremor is likely secondary to underlying generalized anxiety disorder from increased personal stress. We will avoid any medications for tremors, but would consider Lexapro 10 mg p.o. daily, which will help anxiety, depression and help reduce naturally the tremors. At this time, aspirin 81 for stroke prevention and could follow up as an outpatient. Advised smoking cessation since he is an active smoker. Thank you for this consult. Mukund Rodriguez MD
[2018-02-13 15:35] LABS: INR 0.99; PARTIAL THROMBOPLASTIN TIME 30.6 Seconds (25.1-36.5); PROTHROMBIN TIME 11.3 SECONDS (9.4-12.5)
--- NOTE | 2018-02-13 17:13 | CON ---
DATE: 02/13/2018 CARDIOLOGY CONSULT Covering for Dr. Mcduffie. REASON FOR CONSULTATION: Coronary artery disease and chest pain. HISTORY OF PRESENT ILLNESS: The patient is a 67-year-old male who has a history of coronary artery disease, status post double bypass surgery in 1996 at [facility], status post coronary artery stenting 10 months ago because of intermittent chest discomfort, which the patient attributes to his anxiety and stress. The patient claims to have been compliant with his medications; however, he continues to smoke. At the time of my evaluation, the patient denies any chest pain. SOCIAL HISTORY: The patient is a smoker. MEDICATIONS: Ramipril 1.25 mg daily, aspirin 81 mg once a day, Lexapro 10 mg once a day, Lipitor 40 mg once a day, Lopressor 25 mg twice a day, Plavix 75 mg once a day, Nicoderm patch and Xanax 0.25 mg p.o. b.i.d. REVIEW OF SYSTEMS: No dizziness or syncope. No fever or chills and no nausea or vomiting. PHYSICAL EXAMINATION: GENERAL: The patient is an elderly male who does not appear to be in acute distress. VITAL SIGNS: Blood pressure 107/77, heart rate 74, temperature 97.4, respiration 20. HEENT: Normocephalic. NECK: No JVD. CHEST: Clear. HEART: S1, S2 regular. EXTREMITIES: No edema. LABORATORY DATA: Hemoglobin and hematocrit 14.4 and 42.3. White count and platelet count are within normal limit. SMA-7: Sodium 142, potassium 3.8, chloride 106, CO2 of 30, glucose 95, BUN 10, creatinine 0.6. One set of troponin is negative. EKG revealed sinus bradycardia at the rate of 55, left axis deviation and nonspecific anterior T-wave changes. The most recent stress test was in 11/2017 and the conclusion was IV Lexiscan nuclear stress test negative for chest pain and negative for ST-T changes; however, no nuclear report was found. Echocardiographic study in 11/2017 revealed ejection fraction in the range of 35% to 40% with mild pulmonary hypertension. Cardiac catheterization in 02/2017, the patient revealed patent OSEI to LAD, patent saphenous vein graft to the RCA, proximal two patent stents noted. Distal to the stent, there was 90% stenosis. The patient underwent PTCA saphenous vein graft to the RCA with drug-eluting stent at that time. ASSESSMENT: 1. Chest pain, rule out myocardial infarction. 2. Ischemic cardiomyopathy. 3. History of coronary stenting to the distal saphenous vein graft to the right coronary artery in 02/2017 almost one year ago. 4. Depression. RECOMMENDATIONS: Continue aspirin 81 mg once a day, Altace 1.25 mg once a day, Lipitor 40 mg once a day, Lopressor 25 mg twice a day, Plavix 75 mg once a day. Obtain one more set of troponin and start Lovenox at 40 mg subcutaneously daily. Obtain PT, PTT and INR. Tej Hanley MD
--- NOTE | 2018-02-14 04:49 | DS ---
HISTORY OF PRESENT ILLNESS: The patient is 67 years old, seen and examined. He came in with chest pain. By the time he came to emergency room that resolved. The patient states he is very anxious, has been taking Xanax from different doctors. His also noted that he shakes when he is anxious. He was placed on observation to rule out underlying coronary ischemia since he is active smoker and he has angioplasties in the past. When I examined the patient this morning, he was chest pain free; however, he still feels anxious. PHYSICAL EXAMINATION: VITAL SIGNS: He is afebrile, pulse 64, respirations 20, blood pressure 107/77. LUNGS: Bilateral fair airflow. No rhonchi or crackle. HEART: S1 and S2 audible. ABDOMEN: Soft. Nontender. No rebound. No guarding. NEUROLOGICAL: He is awake, alert, oriented, able to communicate. LABORATORY EXAM: His PT is 11.3, INR is 0.99. Chemistry: Two sets of troponin negative. ASSESSMENT: 1. Anxiety disorder. 2. History of coronary artery disease, status post angioplasty. 3. Hypertension. 4. Active smoker. 5. Chest pain seemed to be noncardiac. 6. Hyperlipidemia. 7. Recent prostatic resection by laser vaporization. PLAN: The patient was evaluated by Dr. Mukund Rodriguez. He was given prescription of Lexapro. The patient will take Xanax as needed. He will follow up with them as outpatient. The patient will resume his medications. The only thing newer given is Lexapro 10 mg daily and Xanax as needed. Otherwise, he will resume his statins, aspirin, beta emory. We will follow him up in the office. Cindy Burgess MD
== END 2018-02-13 17:41 | disposition home or self-care (01) ==
LOC: ED 11:40 → ERH 13:35 → 2RNO 16:33
PROVIDERS: ADMIT Internal Medicine; ATTEND Internal Medicine
DX: R07.9 Chest pain, unspecified (principal); I25.10 Atherosclerotic heart disease of native coronary artery without angina pectoris; E78.5 Hyperlipidemia, unspecified; I10 Essential (primary) hypertension; J44.9 Chronic obstructive pulmonary disease, unspecified; I25.5 Ischemic cardiomyopathy; F32.9 Major depressive disorder, single episode, unspecified; F41.1 Generalized anxiety disorder; F17.210 Nicotine dependence, cigarettes, uncomplicated; F06.4 Anxiety disorder due to known physiological condition; Z95.5 Presence of coronary angioplasty implant and graft; R25.1 Tremor, unspecified
CPT/HCPCS: 36415; 71045; 80053; 82550; 83615; 83735; 84484; 85025; 85610; 85730; 93005; 99282; G0378

== ENCOUNTER 2018-04-16 04:38 | Emergency (ER) | payer MEDICARE ==
[2018-04-16 04:38] VITALS: BMI 23.9
[2018-04-16 04:51] VITALS: RESP 18
--- NOTE | 2018-04-16 05:13 | ED PDOC ---
Arrival/HPI <Ronald Thornton - Last Filed: 04/16/18 06:27> - General Historian: Patient, Family - History of Present Illness Narrative History of Present Illness (Text): 04/16/18 05:06 67 y o male with extensive past medical hx of HTN, CAD s/p multiple angioplasties and bypass grafting, COPD, laser vaporization of prostate 6 mos ago, anxiety disorder, anemia (w/ hx 2 prior blood transfusions), presents to ED c/o painless hematuria, urinary retention, and lower abd pain. States that he had episode of hematuria at 6 pm last night, then stated that he has been unable to void since that time. B/l lower abd pain started at 9 pm last night, pt rates it 8/10, and feels like he is bloated. Pt states he took a Percocet at that time which alleviated the pain, but then came back after the pain medication wore off overnight. States pain improves when he stands up. Pt was concerned, and thus decided to come to the ED. Denies fever, chills, chest pain, sob, n/v/d/c, or other symptoms. Unable to recall last time he had BM, but denies hx of blood in stool. States last time he had guzman catheter placement was 6 mos ago. Past medical hx: as outlined above PSurgHx: as noted above Allergies: NKDA Home meds: Ramipril 1.25 mg PO daily, Lopressor 25 mg PO bid, Lexapro 10 mg PO AC, Plavix 75 mg daily, Lipitor 40 mg daily, ASA, Xanax 0.5 mg prn Fam hx: denies Soc hx: cut down to smoking less than 1 ppd, denies ETOH or illicit drug use PMD: Dr. Burgess Order Checker: Dr. Deleon Urologist: Dr. Agustin Rebolledo <Dylan Felix - Last Filed: 04/16/18 06:31> - General Chief Complaint: Male Genitourinary Time Seen by Provider: 04/16/18 04:45 Past Medical History - Past History Past History: Non-Contributing - Infectious Disease Hx of Infectious Diseases: None - Tetanus Immunization Tetanus Immunization: Unknown - Cardiac Hx Cardiac Disorders: Yes (CAD,CABG,DC) Hx Hypertension: Yes - Pulmonary Hx Respiratory Disorders: Yes - Neurological Hx Neurological Disorder: No - HEENT Hx HEENT Disorder: Yes Other/Comment: TINNITUS - Renal Hx Renal Disorder: Yes Hx Kidney Stones: Yes - Endocrine/Metabolic Hx Endocrine Disorders: No - Hematological/Oncological Hx Blood Disorders: No - Integumentary Hx Dermatological Disorder: No - Musculoskeletal/Rheumatological Hx Musculoskeletal Disorders: Yes (BILATERAL KNEE SX,) Hx Falls: No - Gastrointestinal Hx Gastrointestinal Disorders: Yes (APPENDECTOMY) - Genitourinary/Gynecological Hx Genitourinary Disorders: Yes (URINARY RETENTION) Hx Hematuria: Yes Hx Prostate Problems: Yes Hx Urinary Tract Infection: Yes - Psychiatric Hx Psychophysiologic Disorder: Yes Hx Anxiety: Yes Hx Substance Use: No - Surgical History Hx Appendectomy: Yes Hx Cardiac Catheterization: Yes Hx Coronary Stent: Yes (X4) Hx Orthopedic Surgery: Yes Other/Comment: PROSTATE SURGERY - Anesthesia Hx Anesthesia: Yes Hx Anesthesia Reactions: No Hx Malignant Hyperthermia: No - Suicidal Assessment Feels Threatened In Home Enviroment: No <Dylan Felix - Last Filed: 04/16/18 06:31> Family/Social History Family/Social History: No Known Family HX Smoking Status: Current Some Days Smoker Hx Alcohol Use: Yes (SOCIALLY) Hx Substance Use: No Hx Substance Use Treatment: No <Dylan Felix - Last Filed: 04/16/18 06:31> Allergies/Home Meds <Ronald Thornton - Last Filed: 04/16/18 06:27> <Dylan Felix - Last Filed: 04/16/18 06:31> Allergies/Adverse Reactions: Allergies No Known Allergies Allergy (Verified 02/12/18 16:00) Home Medications: Home Meds Medication Instructions Recorded Confirmed Aspirin [Adult Low Dose Aspirin EC] 81 mg PO DAILY 12/01/17 02/13/18 Clopidogrel [Plavix] 75 mg PO DAILY 12/01/17 02/13/18 Alprazolam [Xanax] 0.5 mg PO PRN PRN 02/12/18 02/13/18 Atorvastatin [Lipitor] 40 mg PO DAILY 02/12/18 02/13/18 Metoprolol Tartrate [Lopressor] 25 mg PO BID 02/12/18 02/13/18 Ramipril [Altace] 1.25 mg PO DAILY 02/12/18 02/13/18 Lexapro 10 mg PO AC 02/13/18 02/13/18 Review of Systems - Review of Systems Constitutional: Fatigue. absent: Weight Change, Fevers, Night Sweats Eyes: absent: Vision Changes Cardiovascular: absent: Chest Pain, Palpitations, Edema, WALTERS Gastrointestinal: Abdominal Pain, Appetite Changes. absent: Nausea, Vomiting Genitourinary Male: Hematuria, Urinary Output Changes. absent: Dysuria, Frequency Neurological: Normal <Dylan Felix - Last Filed: 04/16/18 06:31> Physical Exam Vital Signs Temp Pulse Resp BP Pulse Ox 04/16/18 04:50 97.1 F L 67 18 122/87 96 <Ronald Thornton - Last Filed: 04/16/18 06:27> Vital Signs Temp Pulse Resp BP Pulse Ox 04/16/18 04:50 97.1 F L 67 18 122/87 96 Temperature: Afebrile Blood Pressure: Normal Pulse: Regular Respiratory Rate: Normal Appearance: Positive for: Non-Toxic, Uncomfortable Pain Distress: Severe Mental Status: Positive for: Alert and Oriented X 3 - Systems Exam Head: Present: Atraumatic, Normocephalic Pupils: Present: PERRL Extroacular Muscles: Present: EOMI Conjunctiva: Present: Normal Mouth: Present: Moist Mucous Membranes Neck: Present: Normal Range of Motion. No: JVD, Lymphadenopathy Respiratory/Chest: Present: Clear to Auscultation, Good Air Exchange. No: Respiratory Distress, Accessory Muscle Use, Wheezes, Rales, Rhonchi Cardiovascular: Present: Regular Rate and Rhythm, Normal S1, S2. No: Murmurs, Rub, Gallop Abdomen: Present: Tenderness, Distention, Normal Bowel Sounds. No: Peritoneal Signs, Mass/Organomegaly (Tenderness to palpation in LLQ and RLQ b/l, associated suprapubic tenderness) Back: Present: Normal Inspection. No: CVA Tenderness Upper Extremity: Present: Normal Inspection, Normal ROM, NORMAL PULSES, Neurovascularly Intact, Capillary Refill < 2s. No: Cyanosis, Edema Lower Extremity: Present: Normal Inspection, NORMAL PULSES, Normal ROM, Neurovascularly Intact, Capillary Refill < 2 s. No: Edema Neurological: Present: GCS=15, CN II-XII Intact, Speech Normal Skin: Present: Warm, Dry, Normal Color. No: Rashes Psychiatric: Present: Alert, Oriented x 3, Normal Insight, Normal Concentration <Dylan Felix - Last Filed: 04/16/18 06:31> Medical Decision Making ED Course and Treatment: Seen and examined with resident. 67 y/o M p/w hematuria. On exam, no distended bladder palpated. Guzman placed, 250 mL bloody with sediment. Bladder scan shows no urine. Labs unremarkable. Will send for CT for further evaluation. Signed out to ED day team pending CT. - Lab Interpretations Lab Results: 04/16/18 05:11 04/16/18 05:11 Lab Results 04/16/18 05:11: PT 10.8, INR 0.94, APTT 29.0 04/16/18 05:11: Sodium 143, Potassium 3.7, Chloride 105, Carbon Dioxide 31, Anion Gap 11, BUN 16, Creatinine 1.0, Est GFR ( Amer) > 60, Est GFR (Non- Af Amer) > 60, Random Glucose 122 H, Calcium 9.6, Total Bilirubin 0.6, AST 39, ALT 42, Alkaline Phosphatase 66, Total Protein 7.0, Albumin 4.0, Globulin 3.0, Albumin/Globulin Ratio 1.3 04/16/18 05:11: WBC 10.0, RBC 4.67, Hgb 14.2, Hct 42.8, MCV 91.6 D, MCH 30.4, MCHC 33.2, RDW 15.1 H, Plt Count 165, MPV 10.0, Gran % 71.0 H, Lymph % (Auto) 15.3 L, [place] % (Auto) 11.9 H, Eos % (Auto) 1.5, Baso % (Auto) 0.3, Gran # 7.12 H , Lymph # (Auto) 1.5, [place] # (Auto) 1.2 H, Eos # (Auto) 0.2, Baso # (Auto) 0.03 - RAD Interpretation Radiology Orders: 04/16/18 06:13 ABD & PELVIS IV CONTRAST ONLY [CT] Stat - Medication Orders Current Medication Orders: Discontinued Medications Sodium Chloride (Sodium Chloride 0.9%) 500 mls @ 999 mls/hr IV .Q31M STA Stop: 04/16/18 06:27 Last Admin: 04/16/18 06:03 Dose: 999 mls/hr eMAR Start Stop Document 04/16/18 06:03 JOL (Rec: 04/16/18 06:03 JOL [id number]) Intravenous Solution Start Date 04/16/18 Start Time 06:03 End Date 04/16/18 End time 06:33 Total Infusion Time 30 Oxycodone/Acetaminophen (Percocet 5/325 Mg Tab) 1 tab PO STAT STA Stop: 04/16/18 05:37 Last Admin: 04/16/18 06:03 Dose: 1 tab MAR Pain Assessment Document 04/16/18 06:03 JORalf (Rec: 04/16/18 06:04 JOL [id number]) Pain Reassessment Is this a pain reassessment? No Sleep Is patient sleeping during reassessment? No Presence of Pain Presence of Pain Yes Pain Scale Used Protocol: PSCALES Pain Scale Used Numeric Location Pain Location Body Site Groin Description Intensity of Pain at present 6 Acceptable Level of Pain 2 Tamsulosin HCl (Flomax) 0.4 mg PO STAT STA Stop: 04/16/18 05:57 Last Admin: 04/16/18 06:24 Dose: 0.4 mg <Ronald Thornton - Last Filed: 04/16/18 06:27> ED Course and Treatment: 04/16/18 05:20 Pt presents with hematuria, urinary retention and b/l lower abdominal pain. Plan: Guzman catheter placement. Pending CBC, CMP, coags, U/a. Continue to monitor. <Dylan Felix - Last Filed: 04/16/18 06:31> Disposition/Present on Arrival <Ronald Thornton - Last Filed: 04/16/18 06:27> - Present on Arrival Any Indicators Present on Arrival: No History of DVT/PE: No History of Uncontrolled Diabetes: No Urinary Catheter: No History of Decub. Ulcer: No History Surgical Site Infection Following: None - Disposition Have Diagnosis and Disposition been Completed?: Yes Disposition Time: 06:31 <Dylan Felix - Last Filed: 04/16/18 06:31> - Disposition Diagnosis: Hematuria, Urinary retention Condition: STABLE Forms: KAYAK (Polish)
[2018-04-16 05:26] LABS: BASO # 0.03 K/mm3 (0.0-2.0); BASO % 0.3 % (0.0-3.0); EOS # 0.2 (0.0-0.7); EOS % 1.5 % (1.5-5.0); GRAN # 7.12 (1.4-6.5); HEMOGLOBIN 14.2 g/dL (14.0-18.0); LYMPH # 1.5 (1.2-3.4); LYMPH % 15.3 % (22.0-35.0); MEAN CORPUSCULAR HEMOGLOBIN 30.4 pg (25.0-35.0); MEAN CORPUSCULAR HGB CONC 33.2 g/dl (31.0-37.0); MONO # 1.2 (0.1-0.6); MONO % 11.9 % (1.0-6.0); RBC 4.67 10^6/uL (3.5-6.1); RED CELL DISTRIBUTION WIDTH 15.1 % (11.5-14.5)
[2018-04-16 05:35] LABS: MEAN CELL VOLUME 91.6 fl (80.0-105.0)
[2018-04-16] MEDS ORDERED: Oxycodone/Acetaminophen 5/325 mg Tab PO STA (05:36)
[2018-04-16 05:44] LABS: INR 0.94; PROTHROMBIN TIME 10.8 SECONDS (9.4-12.5)
[2018-04-16] MEDS ORDERED: Sodium Chloride 0.9% 500 ML IV STA (05:57)
[2018-04-16 06:12] LABS: ALB/GLOB RATIO 1.3 (1.1-1.8); ALT/SGPT 42 U/L (7-56); AST/SGOT 39 U/L (17-59); BLOOD UREA NITROGEN 16 mg/dL (7-21); CALCIUM 9.6 mg/dL (8.4-10.5); GFR NON-AFRICAN AMERICAN > 60
[2018-04-16 06:56] LABS: URINE BILIRUBIN SMALL (NEGATIVE); URINE BLOOD LARGE (NEGATIVE); URINE GLUCOSE (UA) NEGATIVE (NEGATIVE); URINE LEUKOCYTE ESTERASE NEGATIVE Leu/uL (NEGATIVE); URINE PROTEIN 100 mg/dL (<30 mg/dL); URINE UROBILINOGEN 0.2 E.U./dL (<1 E.U./dL)
[2018-04-16 06:57] LABS: URINE APPEARANCE CLOUDY (CLEAR); URINE COLOR LIGHT BROWN (YELLOW)
[2018-04-16 07:05] LABS: URINE EPITHELIAL CELLS 0 - 2 /hpf (0-5); URINE RBC TNTC /hpf (0-2); URINE WBC 0 - 2 /hpf (0-6)
[2018-04-16 07:06] LABS: URINE BACTERIA TRACE (NEG)
[2018-04-16] MEDS ORDERED: Iodixanol 320 mg/ml 150 ml Bottle IV ONE (07:22)
[2018-04-16 07:38] VITALS: TEMP 98
[2018-04-16 09:01] VITALS: O2SAT 98
--- NOTE | 2018-04-16 09:54 | CT ---
Date of service: 04/16/2018 PROCEDURE: CT Abdomen and Pelvis without intravenous contrast HISTORY: Lower abd pain, urinary retention, hematuria COMPARISON: 09/04/17 TECHNIQUE: Technique. Contrast dose: Radiation dose: Total exam DLP = 973.59 mGy-cm. This CT exam was performed using one or more of the following dose reduction techniques: Automated exposure control, adjustment of the mA and/or kV according to patient size, and/or use of iterative reconstruction technique. FINDINGS: LOWER THORAX: Small sliding hiatal hernia. LIVER: Moderate hepatomegaly. 2.2 centimeter attic cysts. GALLBLADDER AND BILE DUCTS: Unremarkable. PANCREAS: Unremarkable. No gross lesion or ductal dilatation. SPLEEN: Unremarkable. ADRENALS: Unremarkable. No mass. KIDNEYS AND URETERS: Left hydroureteronephrosis with delayed left nephrogram. VASCULATURE: Unremarkable. No aortic aneurysm. Aortic calcifications. BOWEL: Unremarkable. No obstruction. No gross mural thickening. APPENDIX: Unremarkable. Normal appendix. PERITONEUM: Unremarkable. No free fluid. No free air. LYMPH NODES: Unremarkable. No enlarged lymph nodes. BLADDER: Woods catheter in the bladder. REPRODUCTIVE: Prostate enlargement. BONES: No acute fracture. OTHER FINDINGS: None. IMPRESSION: Left hydroureteronephrosis with delayed left nephrogram. No significant change to prior exam.
[2018-04-16 09:56] VITALS: BP 112/65; PULSE 68
--- NOTE | 2018-04-16 10:03 | ED PDOC ---
Physical Exam Vital Signs Reviewed: Yes Vital Signs Temp Pulse Resp BP Pulse Ox 04/16/18 09:56 68 18 112/65 98 04/16/18 09:00 71 18 110/62 98 04/16/18 07:37 98 F 61 18 120/72 96 04/16/18 04:50 97.1 F L 67 18 122/87 96 Temperature: Afebrile Blood Pressure: Normal Pulse: Regular Respiratory Rate: Normal Appearance: Positive for: Well-Appearing, Non-Toxic, Comfortable Pain Distress: None Mental Status: Positive for: Alert and Oriented X 3 Medical Decision Making ED Course and Treatment: Progress notes: 04/16/18 07:00 Case endorsed to me by Dr. Thornton for pending CT scan. 04/16/18 09:35 Spoke to Urologist: Dr. Agustin Rebolledo. Patient is clear for discharge and will follow up in his office today or tomorrow. Woods to stay in place. - Lab Interpretations Lab Results: 04/16/18 05:11 04/16/18 05:11 Lab Results 04/16/18 06:30: Urine Color Light brown, Urine Appearance Cloudy, Urine pH 6.0, Ur Specific [place] >= 1.030, Urine Protein 100 H, Urine Glucose (UA) Negative, Urine Ketones Trace H, Urine Blood Large H, Urine Nitrate Positive H, Urine Bilirubin Small H, Urine Urobilinogen 0.2, Ur Leukocyte Esterase Negative, Urine RBC Tntc, Urine WBC 0 - 2, Ur Epithelial Cells 0 - 2, Urine Bacteria Trace 04/16/18 05:11: PT 10.8, INR 0.94, APTT 29.0 04/16/18 05:11: Sodium 143, Potassium 3.7, Chloride 105, Carbon Dioxide 31, An ion Gap 11, BUN 16, Creatinine 1.0, Est GFR ( Amer) > 60, Est GFR (Non-Af Amer) > 60, Random Glucose 122 H, Calcium 9.6, Total Bilirubin 0.6, AST 39, ALT 42, Alkaline Phosphatase 66, Total Protein 7.0, Albumin 4.0, Globulin 3.0, Albumin/Globulin Ratio 1.3 04/16/18 05:11: WBC 10.0, RBC 4.67, Hgb 14.2, Hct 42.8, MCV 91.6 D, MCH 30.4, MCHC 33.2, RDW 15.1 H, Plt Count 165, MPV 10.0, Gran % 71.0 H, Lymph % (Auto) 15.3 L, [place] % (Auto) 11.9 H, Eos % (Auto) 1.5, Baso % (Auto) 0.3, Gran # 7.12 H , Lymph # (Auto) 1.5, [place] # (Auto) 1.2 H, Eos # (Auto) 0.2, Baso # (Auto) 0.03 - RAD Interpretation Narrative RAD Interpretations (Text): CT of Abdomen/Pelvis reviewed by radiologist, shows: Dictator : Vernon Rodriges MD Report Date : 04/16/2018 09:50:17 FINDINGS: LOWER THORAX: Small sliding hiatal hernia. LIVER: Moderate hepatomegaly. 2.2 centimeter attic cysts. GALLBLADDER AND BILE DUCTS: Unremarkable. PANCREAS: Unremarkable. No gross lesion or ductal dilatation. SPLEEN: Unremarkable. ADRENALS: Unremarkable. No mass. KIDNEYS AND URETERS: Left hydroureteronephrosis with delayed left nephrogram. VASCULATURE: Unremarkable. No aortic aneurysm. Aortic calcifications. BOWEL: Unremarkable. No obstruction. No gross mural thickening. APPENDIX: Unremarkable. Normal appendix. PERITONEUM: Unremarkable. No free fluid. No free air. LYMPH NODES: Unremarkable. No enlarged lymph nodes. BLADDER: Woods catheter in the bladder. REPRODUCTIVE: Prostate enlargement. BONES: No acute fracture. OTHER FINDINGS: None. IMPRESSION: Left hydroureteronephrosis with delayed left nephrogram. No significant change to prior exam. Radiology Orders: 04/16/18 06:13 ABDOMEN,PELVIS W/WO CONTRAST [CT] Stat Burial Needs Salesperson: Radiologist - Medication Orders Current Medication Orders: Discontinued Medications Sodium Chloride (Sodium Chloride 0.9%) 500 mls @ 999 mls/hr IV .Q31M STA Stop: 04/16/18 06:27 Last Admin: 04/16/18 06:03 Dose: 999 mls/hr eMAR Start Stop Document 04/16/18 06:03 JULISSA (Rec: 04/16/18 06:03 JORalf [id number]) Intravenous Solution Start Date 04/16/18 Start Time 06:03 End Date 04/16/18 End time 06:33 Total Infusion Time 30 Oxycodone/Acetaminophen (Percocet 5/325 Mg Tab) 1 tab PO STAT STA Stop: 04/16/18 05:37 Last Admin: 04/16/18 06:03 Dose: 1 tab MAR Pain Assessment Document 04/16/18 06:03 DARRELRalf (Rec: 04/16/18 06:04 JULISSA [id number]) Pain Reassessment Is this a pain reassessment? No Sleep Is patient sleeping during reassessment? No Presence of Pain Presence of Pain Yes Pain Scale Used Protocol: PSCALES Pain Scale Used Numeric Location Pain Location Body Site Groin Description Intensity of Pain at present 6 Acceptable Level of Pain 2 Tamsulosin HCl (Flomax) 0.4 mg PO STAT STA Stop: 04/16/18 05:57 Last Admin: 04/16/18 06:24 Dose: 0.4 mg - Scribe Statement The provider has reviewed the documentation as recorded by the Scribe Yanira Calderon All medical record entries made by the Scribe were at my direction and personally dictated by me. I have reviewed the chart and agree that the record accurately reflects my personal performance of the history, physical exam, medical decision making, and the department course for this patient. I have also personally directed, reviewed, and agree with the discharge instructions and disposition. Disposition/Present on Arrival - Present on Arrival Any Indicators Present on Arrival: No History of DVT/PE: No History of Uncontrolled Diabetes: No Urinary Catheter: No History of Decub. Ulcer: No History Surgical Site Infection Following: None - Disposition Have Diagnosis and Disposition been Completed?: Yes Diagnosis: Hematuria, Urinary retention Disposition: HOME/ ROUTINE Disposition Time: 09:00 Condition: STABLE Discharge Instructions (ExitCare): Blood in the Urine (Hematuria), Adult (DC) Additional Instructions: KEILY BURCIAGA, thank you for letting us take care of you today. The emergency medical care you received today was directed at your acute symptoms. If you were prescribed any medication, please fill it and take as directed. It may take several days for your symptoms to resolve. Return to the Emergency Department if your symptoms worsen, do not improve, or if you have any other problems. Please contact your doctor or call one of the physicians/clinics you have been referred to that are listed on the Patient Visit Information form that is included in your discharge packet. Bring any paperwork you were given at discharge with you along with any medications you are taking to your follow up visit. Our treatment cannot replace ongoing medical care by a primary care provider outside of the emergency department. Thank you for allowing the [facility] team to be part of your care today. Follow up with Dr. Rebolledo today for re-evaluation and further management. Referrals: Agustin Rebolledo MD [Staff Provider] - Follow up with primary Forms: [employer] (H[place] Konger)
== END 2018-04-16 10:25 | disposition home or self-care (01) ==
LOC: ED 04:38
DX: R33.9 Retention of urine, unspecified (principal); R31.9 Hematuria, unspecified
CPT/HCPCS: 74178; 80053; 81001; 85025; 85610; 85730; 87086; 99285; J7040; Q9967

== ENCOUNTER 2018-04-23 01:07 | Observation (INO) | payer MEDICARE ==
[2018-04-23 01:08] VITALS: BMI 23.9
[2018-04-23] MEDS ORDERED: Sodium Chloride 0.9% 500 ML IV STA (01:36)
--- NOTE | 2018-04-23 01:38 | ED PDOC ---
Arrival/HPI - General Chief Complaint: Male Genitourinary Time Seen by Provider: 04/23/18 01:09 Historian: Patient - History of Present Illness Narrative History of Present Illness (Text): 04/23/18 01:33 67 year old male, whose past medical history includes hypertension, CAD s/p multiple angioplasties and bypass grafting, COPD, laser vaporization of prostate, anxiety disorder, anemia (w/ hx 2 prior blood transfusions), and renal problems, presents to the emergency department complaining of lower abdominal and left flank pain, since 1 day. Patient has numerous visits for similar symptoms. Patient states he had his guzman taken out yesterday by Dr. Rebolledo. Patient informs being able to urinate all day. Patient denies any hematuria, dysuria, fever, chills, nausea, vomiting, diarrhea, or any other complaints. Time/Duration: 24 hours Symptom Onset: Gradual Symptom Course: Unchanged Past Medical History - Provider Review Nursing Documentation Reviewed: Yes - Past History Past History: Non-Contributing - Infectious Disease Hx of Infectious Diseases: None - Tetanus Immunization Tetanus Immunization: Unknown - Cardiac Hx Cardiac Disorders: Yes (CAD,CABG,NM) Hx Hypertension: Yes - Pulmonary Hx Respiratory Disorders: Yes - Neurological Hx Neurological Disorder: No - HEENT Hx HEENT Disorder: Yes Other/Comment: TINNITUS - Renal Hx Renal Disorder: Yes Hx Kidney Stones: Yes - Endocrine/Metabolic Hx Endocrine Disorders: No - Hematological/Oncological Hx Blood Disorders: No - Integumentary Hx Dermatological Disorder: No - Musculoskeletal/Rheumatological Hx Musculoskeletal Disorders: Yes (BILATERAL KNEE SX,) Hx Falls: No - Gastrointestinal Hx Gastrointestinal Disorders: Yes (APPENDECTOMY) - Genitourinary/Gynecological Hx Genitourinary Disorders: Yes (URINARY RETENTION) Hx Hematuria: Yes Hx Prostate Problems: Yes Hx Urinary Tract Infection: Yes - Psychiatric Hx Psychophysiologic Disorder: Yes Hx Substance Use: No - Surgical History Hx Appendectomy: Yes Hx Cardiac Catheterization: Yes Hx Coronary Stent: Yes (X4) Hx Orthopedic Surgery: Yes Other/Comment: PROSTATE SURGERY - Anesthesia Hx Anesthesia: Yes Hx Anesthesia Reactions: No Hx Malignant Hyperthermia: No - Suicidal Assessment Feels Threatened In Home Enviroment: No Family/Social History - Physician Review Nursing Documentation Reviewed: Yes Family/Social History: No Known Family HX Smoking Status: Current Some Days Smoker Hx Alcohol Use: No (denies 04/23/18) Hx Substance Use: No Hx Substance Use Treatment: No Allergies/Home Meds Allergies/Adverse Reactions: Allergies No Known Allergies Allergy (Verified 02/12/18 16:00) Home Medications: Home Meds Medication Instructions Recorded Confirmed Aspirin [Adult Low Dose Aspirin EC] 81 mg PO DAILY 12/01/17 04/23/18 Clopidogrel [Plavix] 75 mg PO DAILY 12/01/17 04/23/18 Alprazolam [Xanax] 0.5 mg PO PRN PRN 02/12/18 04/23/18 Atorvastatin [Lipitor] 40 mg PO DAILY 02/12/18 04/23/18 RX: Metoprolol Tartrate [Lopressor] 25 mg PO BID 02/12/18 04/23/18 Ramipril [Altace] 1.25 mg PO DAILY 02/12/18 04/23/18 Lexapro 10 mg PO AC 02/13/18 04/23/18 Clonazepam [Klonopin] 0.5 mg PO PRN PRN 04/23/18 04/23/18 Review of Systems - Physician Review All systems were reviewed & negative as marked: Yes - Review of Systems Constitutional: absent: Fevers, Night Sweats Gastrointestinal: Abdominal Pain. absent: Diarrhea, Nausea, Vomiting Genitourinary Male: absent: Dysuria, Hematuria Physical Exam Vital Signs Reviewed: Yes Vital Signs Temp Pulse Resp BP Pulse Ox 04/23/18 01:21 98.2 F 92 H 18 119/75 100 Temperature: Afebrile Blood Pressure: Normal Pulse: Regular Respiratory Rate: Normal Appearance: Positive for: Well-Appearing, Non-Toxic, Comfortable Pain Distress: None Mental Status: Positive for: Alert and Oriented X 3 - Systems Exam Head: Present: Atraumatic, Normocephalic Pupils: Present: PERRL Extroacular Muscles: Present: EOMI Conjunctiva: Present: Normal Mouth: Present: Moist Mucous Membranes Neck: Present: Normal Range of Motion Respiratory/Chest: Present: Clear to Auscultation, Good Air Exchange. No: Respiratory Distress, Accessory Muscle Use Cardiovascular: Present: Regular Rate and Rhythm, Normal S1, S2. No: Murmurs Abdomen: Present: Tenderness (minimal suprapubic tenderness). No: Distention, Peritoneal Signs Back: Present: Normal Inspection Upper Extremity: Present: Normal Inspection. No: Cyanosis, Edema Lower Extremity: Present: Normal Inspection. No: Edema Neurological: Present: GCS=15, CN II-XII Intact, Speech Normal Skin: Present: Warm, Dry, Normal Color. No: Rashes Psychiatric: Present: Alert, Oriented x 3, Normal Insight, Normal Concentration Medical Decision Making ED Course and Treatment: 04/23/18 01:40 Impression: 67 year old male presents with lower abdominal and left flank pain Plan: -- Labs -- Tylenol -- Urinalysis -- Reassess and disposition Prior Visits: Notes and results from previous visits were reviewed Progress Notes: 04/23/18 03:[address] with left sided hydro. mild non specific leukocyosis. urine neg for infection. case discussed with dr rebolledo request obs. dr sanders accepts. bladder scan post void 75 ml. pt declines ED placement of guzman. - Scribe Statement The provider has reviewed the documentation as recorded by the Klausibe Tee Rogel Provider Scribe Attestation: All medical record entries made by the Scribe were at my direction and personally dictated by me. I have reviewed the chart and agree that the record accurately reflects my personal performance of the history, physical exam, medical decision making, and the department course for this patient. I have also personally directed, reviewed, and agree with the discharge instructions and disposition. Disposition/Present on Arrival - Present on Arrival Any Indicators Present on Arrival: No History of DVT/PE: No History of Uncontrolled Diabetes: No Urinary Catheter: No History of Decub. Ulcer: No History Surgical Site Infection Following: None - Disposition Have Diagnosis and Disposition been Completed?: Yes Diagnosis: Intractable abdominal pain Disposition: HOSPITALIZED Disposition Time: 01:00 Condition: STABLE
[2018-04-23 02:44] LABS: ALB/GLOB RATIO 1.4 (1.1-1.8); ALBUMIN 3.9 g/dL (3.0-4.8); ALT/SGPT 36 U/L (7-56); AST/SGOT 37 U/L (17-59); BLOOD UREA NITROGEN 13 mg/dL (7-21); GFR NON-AFRICAN AMERICAN > 60; LIPASE 52 U/L (23-300)
[2018-04-23 02:46] LABS: BASO # 0.02 K/mm3 (0.0-2.0); BASO % 0.2 % (0.0-3.0); EOS # 0.2 (0.0-0.7); EOS % 1.8 % (1.5-5.0); GRAN # 9.24 (1.4-6.5); GRAN % 77.1 % (50.0-68.0); INR 1.01; LYMPH # 1.3 (1.2-3.4); LYMPH % 10.7 % (22.0-35.0); MEAN CELL VOLUME 91.2 fl (80.0-105.0); MEAN CORPUSCULAR HEMOGLOBIN 30.9 pg (25.0-35.0); MEAN CORPUSCULAR HGB CONC 33.9 g/dl (31.0-37.0); MEAN PLATELET VOLUME 10.4 fl (7.0-11.0); MONO # 1.2 (0.1-0.6); MONO % 10.2 % (1.0-6.0); PARTIAL THROMBOPLASTIN TIME 31.9 Seconds (25.1-36.5); PROTHROMBIN TIME 11.5 SECONDS (9.4-12.5); RBC 4.53 10^6/uL (3.5-6.1); RED CELL DISTRIBUTION WIDTH 14.9 % (11.5-14.5); URINE APPEARANCE CLEAR (CLEAR); URINE BILIRUBIN NEGATIVE (NEGATIVE); URINE BLOOD TRACE-INTACT (NEGATIVE); URINE COLOR YELLOW (YELLOW); URINE GLUCOSE (UA) NEGATIVE (NEGATIVE); URINE LEUKOCYTE ESTERASE NEGATIVE Leu/uL (NEGATIVE); URINE PROTEIN NEGATIVE mg/dL (<30 mg/dL); URINE UROBILINOGEN 0.2 E.U./dL (<1 E.U./dL)
[2018-04-23 02:54] LABS: URINE EPITHELIAL CELLS 0 - 2 /hpf (0-5); URINE RBC 0 - 2 /hpf (0-2); URINE WBC 0 - 2 /hpf (0-6)
[2018-04-23 02:57] LABS: URINE BACTERIA OCC (NEG)
[2018-04-23] MEDS ORDERED: HYDROmorphone 1 mg/ml ISec IVP PRN (08:21)
[2018-04-23] MEDS ORDERED: Dextrose 5%/0.45% NS 1,000 ML IV SCH (08:30)
[2018-04-23 09:43] VITALS: RESP 18
[2018-04-23] MEDS ORDERED: LEXAPRO 10 MG PO SCH ×2 (11:30)
[2018-04-23 14:59] VITALS: BP 108/65; PULSE 57; TEMP 97.7; O2SAT 98
--- NOTE | 2018-04-23 18:36 | HP ---
DATE OF EXAM: 04/23/2018 HISTORY OF PRESENT ILLNESS: The patient is a 67-year-old known to me from multiple previous admissions. The patient states he developed urinary retention on 04/16/2018, he called Dr. Rebolledo who advised him to come to emergency room. He was catheterized and sent home that was Thursday, he saw Dr. Rebolledo on Thursday. He removed Woods catheter . He has been voiding fine, but last night he started suprapubic discomfort. He called Dr. Rebolledo again who advised him to come to emergency room. The patient states when I examined the patient, he states he has no more abdominal pain. No history of fever or chills. No history of nausea or vomiting. No more bloody urine. PAST MEDICAL HISTORY: Significant for: 1. Hypertension. 2. Coronary artery disease, status post angioplasty. 3. prostatectomy. 4. COPD. 5. The patient had laser vaporization of prostate done. 6. Anxiety disorder. ALLERGIES: NOT ALLERGIC TO ANY MEDICATION. MEDICATIONS AT HOME: He is on: 1. Zetia 10 mg daily. 2. Metoprolol 50 mg twice a day. 3. Ramipril 1.25 daily. 4. Flomax 0.4 daily. 5. Aspirin 81 daily. 6. Lipitor 40 mg daily. 7. Plavix 75 daily. 8. Xanax 0.25 three times a day. SOCIAL HISTORY: He used to be very heavy smoker, still smoke here and there. He denies any alcohol use. PHYSICAL EXAMINATION: GENERAL: He is awake, alert, oriented, and symptom free. VITAL SIGNS: He is afebrile, pulse 74, respirations 18, and blood pressure 116/73. LUNGS: Bilateral fair air flow. No rhonchi or crackle. HEART: S1 and S2 audible. ABDOMEN: Soft and nontender. No rebound. No guarding. NEUROLOGIC: The patient is awake and alert, able to communicate. LABORATORY DATA: The patient's urine culture on 04/16/2018 is negative. WBC is 12, hemoglobin 14, hematocrit 41, and platelet 182. PT 11.5 and INR 1.01. Chemistry; sodium 139, potassium 3.9, chloride 105, CO2 of 27, BUN 13, creatinine 1.1, blood sugar 140, and magnesium 1.6. Urinalysis is unremarkable. ASSESSMENT: 1. Abdominal pain that has resolved spontaneously, probably gas pain. Urinalysis is negative for urinary tract infection. 2. Hypertension. 3. Coronary artery disease. 4. Hyperlipidemia. 5. History of prostatic laser vaporization. PLAN: The patient is clinically stable. He will be discharged home today. His Plavix has been stopped. He is on aspirin 81 daily, he is on Xanax, ramipril,metoprolol and atorvastatin. We will follow with Dr. Rebolledo. We will follow up . Cindy Burgess MD
--- NOTE | 2018-04-26 15:53 | CON ---
DATE: 04/23/2018 UROLOGY CONSULT HISTORY OF PRESENT ILLNESS: Mr. Lomeli is a very pleasant gentleman with gross hematuria. The patient is very pleasant gentleman who is doing well. We previously did prostate. He still has some voiding dysfunction. He has many, many complaints. Now it is confirmed that we found him recently and he needs workup for this. He has some kind of distal ureteral problem, either a mass on his distal ureter and he has hydro behind it or some other abnormality. It is not clear at this point, he needs workup. Meanwhile last night, he called me on 04/22/2018 pain and discomfort. I recommended emergency room came here . He was admitted. though he actually pain. Previously, the plan we were going to discharge him home. He just does not workup for the left ureter. but at this point, he is remaining stable. PAST MEDICAL AND SURGICAL HISTORY: As listed above. He is a patient of Dr. Cindy Burgess. REVIEW OF SYSTEMS: As above. SOCIAL HISTORY: He reports that he has a lot of stress right now between his daughter, his family, his job, different factors. And this has been . He also reports that he is still very upset with the hospital at large. There is some point just in the history and physical, review of systems, social notes that he still comes here, but he is angry and then he had some difficulty with the Woods catheter insertion and he has been talking to people in risk management, apparently he is talking to many people in the hospital. He has not been happy with the care that we provided, but he is still very unhappy without a nursing issue. And we are working on this with the patient. MEDICATIONS: SEE CHART. ALLERGIES: . PHYSICAL EXAMINATION: GENERAL: A well-nourished male, in no apparent distress. VITAL SIGNS: Within normal limits including the chart. ABDOMEN: Soft, nontender. There is no evidence of acute abnormality. No rebound or guarding. DIAGNOSES: 1. Gross hematuria. 2. Voiding dysfunction. 3. Hydronephrosis on the left side. PLAN: At this point, he is stable. We are going to discharge him home. I am going to make arrangement for a cystoscopy and a retrograde pyelogram . Further plans will follow. Levon Rebolledo MD
--- NOTE | 2018-04-27 08:25 | CON ---
DATE: 04/23/2018 UROLOGY CONSULT REASON FOR CONSULTATION: Groin rash. To rule out a necrotizing fasciitis. . He underwent a robotic prostatectomy at [facility]. A few weeks back since that time, I guess he has been back to the . Most of his medial doctors in [facility] yesterday, but today he has decided to come here. With complaints of groin erythema. Urology is consulted for further recommendation. patient reports that since the time of removal of catheter which was about the surgery, he has been incontinent all along. He does not urine. was developing. PAST MEDICAL AND SURGICAL HISTORY: As listed. was unremarkable. MEDICATIONS: See chart. ALLERGIES: SEE CHART. PHYSICAL EXAMINATION ABDOMEN: , soft, nontender. There is some erythema along his abdominal wall, but it is not connected to the scrotum. The perineal region is red and erythematous, no crepitus. There are no areas of gangrene. It appears just to dermatitis. It looks that some erythema. Rectal exam is deferred as the patient is present. PLAN: CT scan is currently pending. DIAGNOSES: Urinary incontinence status post a robotic prostatectomy with urinary incontinence. From the Urology standpoint, it looks that his abdomen necrotizing fasciitis. I would sincerely get in a Dermatology consult for further recommendation. I did discuss with the patient possible concerning of Woods catheter. For now, we are going to hold off on those. further plan. But I do think he would benefit from the catheter. We will to follow up. Levon Rebolledo MD
== END 2018-04-23 17:26 | disposition home or self-care (01) ==
LOC: ED 01:07 → ERH 02:58 → 5RNO 03:56
PROVIDERS: ADMIT Internal Medicine; ATTEND Internal Medicine
DX: R10.9 Unspecified abdominal pain (principal); R31.0 Gross hematuria; N13.30 Unspecified hydronephrosis; I25.10 Atherosclerotic heart disease of native coronary artery without angina pectoris; Z95.1 Presence of aortocoronary bypass graft; J44.9 Chronic obstructive pulmonary disease, unspecified; I10 Essential (primary) hypertension; F41.9 Anxiety disorder, unspecified; E78.5 Hyperlipidemia, unspecified; D64.9 Anemia, unspecified; Z79.02 Long term (current) use of antithrombotics/antiplatelets; Z79.82 Long term (current) use of aspirin; Z95.5 Presence of coronary angioplasty implant and graft; Z87.891 Personal history of nicotine dependence
CPT/HCPCS: 80053; 81001; 83690; 83735; 85025; 85610; 85730; 96374; 99285; G0378; J1885; J7040; J7042